=== PATIENT | female | born 1965 | race Caucasian/White ===

== ENCOUNTER 2016-11-18 19:29 | Emergency (ER) | payer MEDICAID, OTHER ==
[2016-11-18] MEDS ORDERED: ASPIRIN 325 MG TAB PO STA (22:06)
[2016-11-18] MEDS ORDERED: MAG HYDROX/AL HYDROX/SIMETH 30 ML, HYOSCYAMINE ELIXIR 10 ML, CIMETIDINE HCL 300 MG, LID... PO STA ×4 (22:06)
[2016-11-18] MEDS ORDERED: NITROGLYCERIN OINT 1 INCH/GM PACKET TOPICAL STA (22:07)
--- NOTE | 2016-11-18 22:12 | ED ---
General Adult HPI - General Chief complaint: Chest Pain Stated complaint: Chest Pain Time Seen by Provider: 11/18/16 21:56 Source: patient Mode of arrival: ambulatory Limitations: no limitations - History of Present Illness Initial comments: 50-year-old female presented for evaluation of a multitude of symptoms including chest pain, shortness of breath, bilateral lower extremity edema, and back pain for the last month. She states that they've progressively worsening over this time and she has been seen by her primary care physician who carli blood recently. She has a follow-up appointment on Friday. She states there are no exacerbating or alleviating factors. She states 78 months ago she had an echo and stress test at [facility] in [place] but is unsure of the results. She has a past medical history of hypertension and hyperlipidemia. - Related Data Home Medications Medication Instructions Recorded Confirmed Cholecalciferol [Vitamin D3] 1,000 unit PO DAILY 05/23/14 11/18/16 ARIPiprazole [Abilify] 30 mg PO DAILY 11/18/16 11/18/16 Aclidinium [place] [Tudorza 1 puff PO RT-BID 11/18/16 11/18/16 Pressair] Albuterol Inhaler [Ventolin Hfa 1 - 2 puff INHALATION RT-Q6H PRN 11/18/16 Inhaler] Atorvastatin [Lipitor] 40 mg PO HS 11/18/16 11/18/16 Fenofibrate [Lofibra] 160 mg PO HS 11/18/16 11/18/16 Gabapentin [Neurontin] 600 mg PO TID 11/18/16 11/18/16 LORazepam [Ativan] 0.5 mg PO TID 11/18/16 11/18/16 Lisinopril [Zestril] 10 mg PO DAILY 11/18/16 11/18/16 Mometasone/Formoterol [Dulera 200 2 puff INHALATION RT-BID 11/18/16 11/18/16 Mcg/5 Mcg Inhaler] oxyCODONE HCL/ACETAMINOPHEN 1 tab PO TID PRN 11/18/16 11/18/16 [Percocet 10-325 mg] Allergies Allergy/AdvReac Type Severity Reaction Status Date / Time ketorolac tromethamine AdvReac Unknown Verified 11/18/16 22:11 [From Toradol] tincture of benzoin Allergy Rash/Hives Uncoded 03/07/14 01:07 Review of Systems ROS Statement: Those systems with pertinent positive or pertinent negative responses have been documented in the HPI. ROS Other: All systems not noted in ROS Statement are negative. Constitutional: Denies: fever, chills Eyes: Denies: eye pain, eye discharge ENT: Denies: ear pain, throat pain Respiratory: Reports: dyspnea. Denies: cough Cardiovascular: Reports: chest pain. Denies: palpitations, dyspnea on exertion , orthopnea Endocrine: Denies: fatigue, polydipsia, polyuria Gastrointestinal: Denies: abdominal pain, nausea, vomiting Genitourinary: Denies: urgency, dysuria Musculoskeletal: Reports: back pain. Denies: arthralgia Skin: Denies: rash, lesions Neurological: Denies: headache, weakness Psychiatric: Denies: anxiety, depression Hematological/Lymphatic: Denies: easy bleeding, easy bruising Past Medical History Past Medical History: Hyperlipidemia, Hypertension Additional Past Medical History / Comment(s): back pain, degenerative disc disease, herniated disc. History of Any Multi-Drug Resistant Organisms: None Reported Past Surgical History: Section Past Anesthesia/Blood Transfusion Reactions: No Reported Reaction Past Psychological History: Anxiety Smoking Status: Current every day smoker Past Alcohol Use History: Occasional Past Drug Use History: None Reported Additional Drug Use History / Comment(s): Pt denies drug use but UDS was positive for THC. General Exam Limitations: no limitations General appearance: alert, in no apparent distress Head exam: Present: atraumatic, normocephalic, normal inspection Eye exam: Present: normal appearance, PERRL, EOMI. Absent: scleral icterus, conjunctival injection, periorbital swelling ENT exam: Present: normal exam, mucous membranes moist Neck exam: Present: normal inspection. Absent: tenderness, meningismus, lymphadenopathy Respiratory exam: Present: normal lung sounds bilaterally. Absent: respiratory distress, wheezes, rales, rhonchi, stridor Cardiovascular Exam: Present: regular rate, normal rhythm, normal heart sounds. Absent: systolic murmur, diastolic murmur, rubs, gallop, clicks GI/Abdominal exam: Present: soft, normal bowel sounds. Absent: distended, tenderness, guarding, rebound, rigid Rectal exam: Present: deferred Extremities exam: Present: full ROM, pedal edema Back exam: Present: normal inspection, full ROM Neurological exam: Present: alert, oriented X3, CN II-XII intact Psychiatric exam: Present: normal affect, normal mood Skin exam: Present: warm, dry, intact, normal color. Absent: rash Course Vital Signs 11/18/16 11/18/16 11/19/16 20:47 22:49 01:08 Temperature 97.6 F Pulse Rate 71 67 66 Respiratory 20 18 18 Rate Blood Pressure 138/74 142/70 141/78 O2 Sat by Pulse 98 96 97 Oximetry Medical Decision Making - Medical Decision Making 50 -year-old female presenting for evaluation of substernal chest pain , bilateral lower extremity edema, low back pain, and shortness of breath for the last month. She states all her symptoms started roughly the same time and progressively been worsening since that. She's been evaluated by her primary care physician as scheduled for a follow-up appointment on Friday. On physical examination she does have pitting edema to bilateral lower extremities and does state that she's having some sternal chest pressure at this time. There are no abnormalities noted otherwise. We'll obtain chest x-ray, EKG, labs , and provide Nitropaste and aspirin as well as a GI cocktail. Labs revealed no significant abnormalities. Pt reevaluated and found sleeping in bed comfortably. He was woken up informed of all lab results and that he would be discharged with instruction to follow-up with his primary care physician as well as being given a GI referral. He was further advised to get the prescriptions that he was given earlier filled and to take them as prescribed. He was advised to return to this facility if symptoms should worsen or persist. The patient acknowledged an understanding of all this information and agreed with this plan of care. - Lab Data Result diagrams: 11/18/16 22:48 11/18/16 22:48 Lab Results 11/18/16 11/18/16 11/18/16 Range/Units 22:48 22:48 22:48 WBC 8.1 (3.8-10.6) k/uL RBC 4.05 (3.80-5.40) m/uL Hgb 12.6 (11.4-16.0) gm/dL Hct 37.4 (34.0-46.0) % MCV 92.4 (80.0-100.0) fL MCH 31.1 (25.0-35.0) pg MCHC 33.6 (31.0-37.0) g/dL RDW 13.1 (11.5-15.5) % Plt Count 283 (150-450) k/uL Neutrophils % 49 % Lymphocytes % 35 % Monocytes % 5 % Eosinophils % 7 % Basophils % 1 % Neutrophils # 4.0 (1.3-7.7) k/uL Lymphocytes # 2.9 (1.0-4.8) k/uL Monocytes # 0.4 (0-1.0) k/uL Eosinophils # 0.6 (0-0.7) k/uL Basophils # 0.1 (0-0.2) k/uL Sodium 144 (137-145) mmol/L Potassium 3.8 (3.5-5.1) mmol/L Chloride 106 (98-107) mmol/L Carbon Dioxide 26 (22-30) mmol/L Anion Gap 12 mmol/L BUN 10 (7-17) mg/dL Creatinine 0.90 (0.52-1.04) mg/dL Est GFR (MDRD) Af Amer >60 (>60 ml/min/1.73 sqM) Est GFR (MDRD) Non-Af >60 (>60 ml/min/1.73 sqM) Glucose 104 H (74-99) mg/dL Calcium 9.6 (8.4-10.2) mg/dL Total Bilirubin 0.4 (0.2-1.3) mg/dL AST 28 (14-36) U/L ALT 37 (9-52) U/L Alkaline Phosphatase 61 (38-126) U/L Troponin I (0.000-0.034) ng/mL NT-Pro-B Natriuret Pep pg/mL Total Protein 7.0 (6.3-8.2) g/dL Albumin 4.3 (3.5-5.0) g/dL Lipase 116 (23-300) U/L Influenza Type A RNA Not Detected (Not Detectd) Influenza Type B (PCR) Not Detected (Not Detectd) 11/18/16 11/18/16 Range/Units 22:48 22:48 WBC (3.8-10.6) k/uL RBC (3.80-5.40) m/uL Hgb (11.4-16.0) gm/dL Hct (34.0-46.0) % MCV (80.0-100.0) fL MCH (25.0-35.0) pg MCHC (31.0-37.0) g/dL RDW (11.5-15.5) % Plt Count (150-450) k/uL Neutrophils % % Lymphocytes % % Monocytes % % Eosinophils % % Basophils % % Neutrophils # (1.3-7.7) k/uL Lymphocytes # (1.0-4.8) k/uL Monocytes # (0-1.0) k/uL Eosinophils # (0-0.7) k/uL Basophils # (0-0.2) k/uL Sodium (137-145) mmol/L Potassium (3.5-5.1) mmol/L Chloride (98-107) mmol/L Carbon Dioxide (22-30) mmol/L Anion Gap mmol/L BUN (7-17) mg/dL Creatinine (0.52-1.04) mg/dL Est GFR (MDRD) Af Amer (>60 ml/min/1.73 sqM) Est GFR (MDRD) Non-Af (>60 ml/min/1.73 sqM) Glucose (74-99) mg/dL Calcium (8.4-10.2) mg/dL Total Bilirubin (0.2-1.3) mg/dL AST (14-36) U/L ALT (9-52) U/L Alkaline Phosphatase (38-126) U/L Troponin I <0.012 (0.000-0.034) ng/mL NT-Pro-B Natriuret Pep 71 pg/mL Total Protein (6.3-8.2) g/dL Albumin (3.5-5.0) g/dL Lipase (23-300) U/L Influenza Type A RNA (Not Detectd) Influenza Type B (PCR) (Not Detectd) Disposition Clinical Impression: Abdominal pain Disposition: HOME SELF-CARE Condition: Stable Instructions: Diet for Stomach Ulcers and Gastritis (ED), Gastroesophageal Reflux Disease (ED) Referrals: Mike Jean MD [Primary Care Provider] - 1-2 days Csaandra Conde MD [STAFF PHYSICIAN] - 1-2 days Time of Disposition: 01:37
[2016-11-18 22:50] VITALS: RESP 18
[2016-11-18 23:06] LABS: Basophils # (A) 0.1 k/uL (0-0.2); Basophils % (A) 1 %; CH 31.4; CHCM 34.2; Eosinophils # (A) 0.6 k/uL (0-0.7); Eosinophils % (A) 7 %; HCT 37.4 % (34.0-46.0); HGB 12.6 gm/dL (11.4-16.0); Luc # (Auto) 0.28; Luc % (Auto) 3; Lymphocytes # (A) 2.9 k/uL (1.0-4.8); Lymphocytes % (A) 35 %; MCH 31.1 pg (25.0-35.0); MCHC 33.6 g/dL (31.0-37.0); MCV 92.4 fL (80.0-100.0); Mean Platelet Volume 7.5; Monocytes # (A) 0.4 k/uL (0-1.0); Monocytes % (A) 5 %; Neutrophils % (A) 49 %; RBC 4.05 m/uL (3.80-5.40); RDW 13.1 % (11.5-15.5); WBC 8.1 k/uL (3.8-10.6)
--- NOTE | 2016-11-18 23:20 | XR ---
Chest PA and lateral views INDICATION: Chest pain COMPARISON: CXR 03/07/14 FINDINGS: PA and lateral views of the chest are obtained. Heart size and pulmonary vascularity are normal. There is no consolidation, effusion, or pneumothorax. Regional skeleton is intact. IMPRESSION: No acute cardiopulmonary disease.
[2016-11-18 23:23] LABS: ALT 37 U/L (9-52); AST 28 U/L (14-36); Alkaline Phosphatase 61 U/L (38-126); Anion Gap 12 mmol/L; Blood Urea Nitrogen 10 mg/dL (7-17); Calcium 9.6 mg/dL (8.4-10.2); Carbon Dioxide 26 mmol/L (22-30); Chloride 106 mmol/L (98-107); Glucose 104 mg/dL (74-99); Non-African American GFR(MDRD) >60 (>60 ml/min/1.73 sqM); Potassium 3.8 mmol/L (3.5-5.1); Sodium 144 mmol/L (137-145); Total Bilirubin 0.4 mg/dL (0.2-1.3)
[2016-11-18] MEDS ORDERED: MORPHINE SULFATE 4 MG/ML SYRINGE IVP STA (23:39)
[2016-11-19] MEDS ORDERED: ONDANSETRON 4 MG/2 ML VIAL IVP STA (01:34)
[2016-11-19] MEDS ORDERED: FAMOTIDINE 20 MG/2 ML VIAL IV STA (01:34)
--- NOTE | 2016-11-19 02:13 | ED ---
Medical Decision Making - Lab Data Result diagrams: 11/18/16 22:48 11/18/16 22:48 Lab Results 11/18/16 11/18/16 11/18/16 Range/Units 22:48 22:48 22:48 WBC 8.1 (3.8-10.6) k/uL RBC 4.05 (3.80-5.40) m/uL Hgb 12.6 (11.4-16.0) gm/dL Hct 37.4 (34.0-46.0) % MCV 92.4 (80.0-100.0) fL MCH 31.1 (25.0-35.0) pg MCHC 33.6 (31.0-37.0) g/dL RDW 13.1 (11.5-15.5) % Plt Count 283 (150-450) k/uL Neutrophils % 49 % Lymphocytes % 35 % Monocytes % 5 % Eosinophils % 7 % Basophils % 1 % Neutrophils # 4.0 (1.3-7.7) k/uL Lymphocytes # 2.9 (1.0-4.8) k/uL Monocytes # 0.4 (0-1.0) k/uL Eosinophils # 0.6 (0-0.7) k/uL Basophils # 0.1 (0-0.2) k/uL Sodium 144 (137-145) mmol/L Potassium 3.8 (3.5-5.1) mmol/L Chloride 106 (98-107) mmol/L Carbon Dioxide 26 (22-30) mmol/L Anion Gap 12 mmol/L BUN 10 (7-17) mg/dL Creatinine 0.90 (0.52-1.04) mg/dL Est GFR (MDRD) Af Amer >60 (>60 ml/min/1.73 sqM) Est GFR (MDRD) Non-Af >60 (>60 ml/min/1.73 sqM) Glucose 104 H (74-99) mg/dL Calcium 9.6 (8.4-10.2) mg/dL Total Bilirubin 0.4 (0.2-1.3) mg/dL AST 28 (14-36) U/L ALT 37 (9-52) U/L Alkaline Phosphatase 61 (38-126) U/L Troponin I (0.000-0.034) ng/mL NT-Pro-B Natriuret Pep pg/mL Total Protein 7.0 (6.3-8.2) g/dL Albumin 4.3 (3.5-5.0) g/dL Lipase 116 (23-300) U/L Influenza Type A RNA Not Detected (Not Detectd) Influenza Type B (PCR) Not Detected (Not Detectd) 11/18/16 11/18/16 11/19/16 Range/Units 22:48 22:48 01:10 WBC (3.8-10.6) k/uL RBC (3.80-5.40) m/uL Hgb (11.4-16.0) gm/dL Hct (34.0-46.0) % MCV (80.0-100.0) fL MCH (25.0-35.0) pg MCHC (31.0-37.0) g/dL RDW (11.5-15.5) % Plt Count (150-450) k/uL Neutrophils % % Lymphocytes % % Monocytes % % Eosinophils % % Basophils % % Neutrophils # (1.3-7.7) k/uL Lymphocytes # (1.0-4.8) k/uL Monocytes # (0-1.0) k/uL Eosinophils # (0-0.7) k/uL Basophils # (0-0.2) k/uL Sodium (137-145) mmol/L Potassium (3.5-5.1) mmol/L Chloride (98-107) mmol/L Carbon Dioxide (22-30) mmol/L Anion Gap mmol/L BUN (7-17) mg/dL Creatinine (0.52-1.04) mg/dL Est GFR (MDRD) Af Amer (>60 ml/min/1.73 sqM) Est GFR (MDRD) Non-Af (>60 ml/min/1.73 sqM) Glucose (74-99) mg/dL Calcium (8.4-10.2) mg/dL Total Bilirubin (0.2-1.3) mg/dL AST (14-36) U/L ALT (9-52) U/L Alkaline Phosphatase (38-126) U/L Troponin I <0.012 <0.012 (0.000-0.034) ng/mL NT-Pro-B Natriuret Pep 71 pg/mL Total Protein (6.3-8.2) g/dL Albumin (3.5-5.0) g/dL Lipase (23-300) U/L Influenza Type A RNA (Not Detectd) Influenza Type B (PCR) (Not Detectd) Disposition Clinical Impression: Chest pain, Bilateral lower extremity edema Disposition: HOME SELF-CARE Condition: Stable Instructions: Chest Pain (ED), Leg Edema (ED) Referrals: Mike Jean MD [Primary Care Provider] - 1-2 days Time of Disposition: 02:12
[2016-11-19 02:23] VITALS: BP 131/66; PULSE 60; TEMP 98
== END 2016-11-19 02:22 | disposition home or self-care (01) ==
LOC: EC 19:29
DX: R07.9 Chest pain, unspecified (principal); R60.0 Localized edema; I10 Essential (primary) hypertension; E78.5 Hyperlipidemia, unspecified; M54.5 Low back pain; Z79.51 Long term (current) use of inhaled steroids; Z79.899 Other long term (current) drug therapy; Z88.8 Allergy status to other drugs, medicaments and biological substances; F41.9 Anxiety disorder, unspecified; F17.200 Nicotine dependence, unspecified, uncomplicated
CPT/HCPCS: 36415 ×2; 93005; 83880; 80053; 83690; 84484 ×2; 85025; 87502; 71020; 99285; 96374; J2270

== ENCOUNTER 2016-11-24 18:06 | Observation (INO) | payer OTHER ==
[2016-11-24] MEDS ORDERED: ASPIRIN 81 MG CHEW PO STA (18:39)
[2016-11-24] MEDS ORDERED: NITROGLYCERIN SL TABS 0.4 MG TAB SUBLINGUAL STA (18:39)
[2016-11-24] MEDS ORDERED: IPRATROPIUM-ALBUTEROL 3 ML NEB INHALATION STA (18:40)
--- NOTE | 2016-11-24 18:42 | ED ---
Chest Pain HPI - General Chief Complaint: Chest Pain Stated Complaint: CHEST PAIN AND SWELLING IN LEGS, SOB Time Seen by Provider: 11/24/16 18:26 Source: patient, RN notes reviewed Mode of arrival: wheelchair Limitations: no limitations - History of Present Illness Initial Comments: This is a 42-year-old female with history of COPD who still smokes about 4 cigarettes a day down from a pack a day and states she's had about one month of episodes of chest pain and shortness of breath and lower extremity swelling. Has a cough with some clear phlegm also she states is getting somewhat worse so on been going on about a month ever had this before. Chest pain is 7/10 severity dull midsternal and achy. No fevers chills sweats no other complaints at this time. She does have a family history of congestive heart failure but no personal history MD Complaint: chest pain, other - Related Data Home Medications Medication Instructions Recorded Confirmed Cholecalciferol [Vitamin D3] 1,000 unit PO DAILY 05/23/14 11/24/16 ARIPiprazole [Abilify] 30 mg PO DAILY 11/18/16 11/24/16 Aclidinium [place] [Tudorza 1 puff PO RT-BID 11/18/16 11/24/16 Pressair] Albuterol Inhaler [Ventolin Hfa 1 - 2 puff INHALATION RT-Q6H PRN 11/18/16 Inhaler] Atorvastatin [Lipitor] 40 mg PO HS 11/18/16 11/24/16 Fenofibrate [Lofibra] 160 mg PO HS 11/18/16 11/24/16 Gabapentin [Neurontin] 600 mg PO TID 11/18/16 11/24/16 LORazepam [Ativan] 0.5 mg PO TID 11/18/16 11/24/16 Lisinopril [Zestril] 10 mg PO DAILY 11/18/16 11/24/16 Mometasone/Formoterol [Dulera 200 2 puff INHALATION RT-BID 11/18/16 11/24/16 Mcg/5 Mcg Inhaler] oxyCODONE HCL/ACETAMINOPHEN 1 tab PO TID PRN 11/18/16 11/24/16 [Percocet 10-325 mg] Allergies Allergy/AdvReac Type Severity Reaction Status Date / Time ketorolac tromethamine AdvReac Unknown Verified 11/24/16 18:52 [From Toradol] tincture of benzoin Allergy Rash/Hives Uncoded 11/24/16 18:18 Review of Systems ROS Statement: Those systems with pertinent positive or pertinent negative responses have been documented in the HPI. ROS Other: All systems not noted in ROS Statement are negative. EKG Findings - EKG Results: EKG: interpreted by ERMD, sinus rhythm (Sinus rhythm rate of 85. Interval 150 QRS duration 86 QT/QTC of 370/[address]-T wave changes.) Past Medical History Past Medical History: Hyperlipidemia, Hypertension Additional Past Medical History / Comment(s): back pain, degenerative disc disease, herniated disc. History of Any Multi-Drug Resistant Organisms: None Reported Past Surgical History: Section Past Anesthesia/Blood Transfusion Reactions: No Reported Reaction Past Psychological History: Anxiety Smoking Status: Current every day smoker Past Alcohol Use History: Occasional Past Drug Use History: None Reported Additional Drug Use History / Comment(s): Pt denies drug use but UDS was positive for THC. General Exam - General Exam Comments Initial Comments: This is a well-developed well-nourished awake alert oriented history female Limitations: no limitations General appearance: alert, in no apparent distress Head exam: Present: atraumatic, normocephalic, normal inspection Eye exam: Present: normal appearance, PERRL, EOMI. Absent: scleral icterus, conjunctival injection, periorbital swelling ENT exam: Present: normal exam, mucous membranes moist Neck exam: Present: normal inspection. Absent: tenderness, meningismus, lymphadenopathy Respiratory exam: Present: decreased breath sounds. Absent: respiratory distress, wheezes, rales, rhonchi, stridor Cardiovascular Exam: Present: regular rate, normal rhythm, normal heart sounds. Absent: systolic murmur, diastolic murmur, rubs, gallop, clicks GI/Abdominal exam: Present: soft, normal bowel sounds. Absent: distended, tenderness, guarding, rebound, rigid Extremities exam: Present: normal inspection, full ROM, normal capillary refill. Absent: tenderness, pedal edema, joint swelling, calf tenderness Back exam: Present: normal inspection Neurological exam: Present: alert, oriented X3, CN II-XII intact Psychiatric exam: Present: normal affect, normal mood Skin exam: Present: warm, dry, intact, normal color. Absent: rash Course Vital Signs 11/24/16 11/24/16 11/24/16 18:18 18:45 18:56 Temperature 98.5 F Pulse Rate 95 78 Pulse Rate [ Right Radial] Respiratory 17 Rate Blood Pressure 123/79 128/80 O2 Sat by Pulse 97 Oximetry 11/24/16 11/24/16 11/24/16 19:00 19:04 20:07 Temperature Pulse Rate 101 H 90 Pulse Rate [ 89 Right Radial] Respiratory 18 Rate Blood Pressure 121/72 128/65 O2 Sat by Pulse 96 Oximetry Chest Pain MDM - MDM I did review the x-rays and reports no acute findings. Patient did get some relief from the medication was rendered. Her laboratory thus far is negative. I did discuss the findings with her she'll be admitted for evaluation by cardiology. Disposition Clinical Impression: Chest pain, Unstable angina pectoris Disposition: ADMITTED IP TO THIS HOSP Condition: Stable
[2016-11-24 18:50] LABS: Basophils # (A) 0.1 k/uL (0-0.2); Basophils % (A) 1 %; CH 31.6; CHCM 33.8; Eosinophils # (A) 0.6 k/uL (0-0.7); Eosinophils % (A) 8 %; HCT 42.3 % (34.0-46.0); HDW 2.58; Luc # (Auto) 0.24; Luc % (Auto) 3; Lymphocytes # (A) 2.5 k/uL (1.0-4.8); Lymphocytes % (A) 33 %; MCH 31.1 pg (25.0-35.0); MCHC 33.2 g/dL (31.0-37.0); MCV 93.9 fL (80.0-100.0); Mean Platelet Volume 7.2; Monocytes # (A) 0.4 k/uL (0-1.0); Monocytes % (A) 5 %; Neutrophils # (A) 3.7 k/uL (1.3-7.7); Neutrophils % (A) 50 %; RDW 13.2 % (11.5-15.5); WBC 7.4 k/uL (3.8-10.6); WBC (Perox) 7.45
[2016-11-24 18:58] LABS: ALT 37 U/L (9-52); AST 36 U/L (14-36); Alkaline Phosphatase 67 U/L (38-126); Anion Gap 13 mmol/L; Blood Urea Nitrogen 9 mg/dL (7-17); Carbon Dioxide 24 mmol/L (22-30); Chloride 106 mmol/L (98-107); Glucose 95 mg/dL (74-99); Magnesium 1.8 mg/dL (1.6-2.3); Non-African American GFR(MDRD) >60 (>60 ml/min/1.73 sqM); Sodium 143 mmol/L (137-145); Total Bilirubin 0.6 mg/dL (0.2-1.3); Total Protein 7.9 g/dL (6.3-8.2)
[2016-11-24 19:05] LABS: Potassium 4.6 mmol/L (3.5-5.1)
[2016-11-24 19:06] LABS: Partial Thromboplastin Time 22.1 sec (22.0-30.0); Prothrombin Time 10.2 sec (9.0-12.0)
[2016-11-24 19:16] LABS: Creatine Kinase 79 U/L (30-135)
[2016-11-24 19:28] LABS: Creatine Kinase MB 0.9 ng/mL (0.0-2.4); Troponin I <0.012 ng/mL (0.000-0.034)
--- NOTE | 2016-11-24 19:33 | XR ---
EXAMINATION TYPE: XR chest 2V DATE OF EXAM: 11/24/2016 7:12 PM COMPARISON: 11/18/2016 HISTORY: Intermittent chest pain TECHNIQUE: Frontal and lateral views of the chest are obtained. FINDINGS: Heart and mediastinum are normal. Lungs are clear. Diaphragm is normal. Bony thorax is int act. There are chest leads. IMPRESSION: Normal chest. No change.
[2016-11-24] MEDS ORDERED: HEPARIN SODIUM,PORCINE 5,000 UNIT/ML 1 ML VIAL IV ONE (20:32)
--- NOTE | 2016-11-24 20:36 | ED ---
Medical Decision Making - Lab Data Result diagrams: 11/24/16 18:23 11/24/16 18:23 Lab Results 11/24/16 11/24/16 11/24/16 Range/Units 18:23 18:23 18:23 WBC 7.4 (3.8-10.6) k/uL RBC 4.50 (3.80-5.40) m/uL Hgb 14.0 (11.4-16.0) gm/dL Hct 42.3 (34.0-46.0) % MCV 93.9 (80.0-100.0) fL MCH 31.1 (25.0-35.0) pg MCHC 33.2 (31.0-37.0) g/dL RDW 13.2 (11.5-15.5) % Plt Count 341 (150-450) k/uL Neutrophils % 50 % Lymphocytes % 33 % Monocytes % 5 % Eosinophils % 8 % Basophils % 1 % Neutrophils # 3.7 (1.3-7.7) k/uL Lymphocytes # 2.5 (1.0-4.8) k/uL Monocytes # 0.4 (0-1.0) k/uL Eosinophils # 0.6 (0-0.7) k/uL Basophils # 0.1 (0-0.2) k/uL PT (9.0-12.0) sec INR (<1.1) APTT (22.0-30.0) sec D-Dimer (<0.60) mg/L FEU Sodium 143 (137-145) mmol/L Potassium 4.6 (3.5-5.1) mmol/L Chloride 106 (98-107) mmol/L Carbon Dioxide 24 (22-30) mmol/L Anion Gap 13 mmol/L BUN 9 (7-17) mg/dL Creatinine 0.81 (0.52-1.04) mg/dL Est GFR (MDRD) Af Amer >60 (>60 ml/min/1.73 sqM) Est GFR (MDRD) Non-Af >60 (>60 ml/min/1.73 sqM) Glucose 95 (74-99) mg/dL Calcium 10.0 (8.4-10.2) mg/dL Magnesium 1.8 (1.6-2.3) mg/dL Total Bilirubin 0.6 (0.2-1.3) mg/dL AST 36 (14-36) U/L ALT 37 (9-52) U/L Alkaline Phosphatase 67 (38-126) U/L Total Creatine Kinase 79 (30-135) U/L CK-MB (CK-2) 0.9 (0.0-2.4) ng/mL CK-MB (CK-2) Rel Index 1.1 Troponin I <0.012 (0.000-0.034) ng/mL NT-Pro-B Natriuret Pep pg/mL Total Protein 7.9 (6.3-8.2) g/dL Albumin 4.7 (3.5-5.0) g/dL 11/24/16 11/24/16 Range/Units 18:23 18:23 WBC (3.8-10.6) k/uL RBC (3.80-5.40) m/uL Hgb (11.4-16.0) gm/dL Hct (34.0-46.0) % MCV (80.0-100.0) fL MCH (25.0-35.0) pg MCHC (31.0-37.0) g/dL RDW (11.5-15.5) % Plt Count (150-450) k/uL Neutrophils % % Lymphocytes % % Monocytes % % Eosinophils % % Basophils % % Neutrophils # (1.3-7.7) k/uL Lymphocytes # (1.0-4.8) k/uL Monocytes # (0-1.0) k/uL Eosinophils # (0-0.7) k/uL Basophils # (0-0.2) k/uL PT 10.2 (9.0-12.0) sec INR 1.0 (<1.1) APTT 22.1 (22.0-30.0) sec D-Dimer 0.28 (<0.60) mg/L FEU Sodium (137-145) mmol/L Potassium (3.5-5.1) mmol/L Chloride (98-107) mmol/L Carbon Dioxide (22-30) mmol/L Anion Gap mmol/L BUN (7-17) mg/dL Creatinine (0.52-1.04) mg/dL Est GFR (MDRD) Af Amer (>60 ml/min/1.73 sqM) Est GFR (MDRD) Non-Af (>60 ml/min/1.73 sqM) Glucose (74-99) mg/dL Calcium (8.4-10.2) mg/dL Magnesium (1.6-2.3) mg/dL Total Bilirubin (0.2-1.3) mg/dL AST (14-36) U/L ALT (9-52) U/L Alkaline Phosphatase (38-126) U/L Total Creatine Kinase (30-135) U/L CK-MB (CK-2) (0.0-2.4) ng/mL CK-MB (CK-2) Rel Index Troponin I (0.000-0.034) ng/mL NT-Pro-B Natriuret Pep 29 pg/mL Total Protein (6.3-8.2) g/dL Albumin (3.5-5.0) g/dL Disposition Clinical Impression: Chest pain, Unstable angina pectoris, Bronchospasm, acute Disposition: ADMITTED IP TO THIS HOSP Condition: Stable Referrals: Mike Jean MD [Primary Care Provider] - 1-2 days
[2016-11-24] MEDS ORDERED: HEPARIN SODIUM,PORCINE/D5W PMX 25,000 UNIT in DEXTROSE/WATER 1 500ML.BAG IV SCH (20:45)
[2016-11-24] MEDS ORDERED: SODIUM CHLORIDE 0.9% 1,000 ML IV SCH (20:45)
[2016-11-24] MEDS ORDERED: ATORVASTATIN 40 MG TAB PO SCH (21:00)
[2016-11-24] MEDS ORDERED: FENOFIBRATE 160 MG TAB PO SCH (21:00)
[2016-11-24] MEDS: LORazepam 0.5 MG TAB PO SCH (22:08)
[2016-11-24] MEDS: oxyCODONE-APAP 10-325MG 1 EACH TAB PO PRN (22:08)
[2016-11-24] MEDS: GABAPENTIN 300 MG CAP PO SCH (22:08)
[2016-11-24] MEDS: NITROGLYCERIN OINT 1 INCH/GM PACKET TOPICAL SCH (22:08)
[2016-11-24] MEDS: NICOTINE 21MG/24HR PATCH TRANSDERM SCH (23:05)
[2016-11-24] MEDS ORDERED: HEPARIN SODIUM,PORCINE 5,000 UNIT/ML 1 ML VIAL IV PRN (23:15)
[2016-11-24] MEDS: IPRATROPIUM-ALBUTEROL 3 ML NEB INHALATION SCH (23:31)
[2016-11-25 00:39] LABS: Creatine Kinase 53 U/L (30-135)
[2016-11-25 00:53] LABS: Creatine Kinase MB 0.6 ng/mL (0.0-2.4); Troponin I <0.012 ng/mL (0.000-0.034)
[2016-11-25] MEDS: IPRATROPIUM-ALBUTEROL 3 ML NEB INHALATION SCH ×4 (02:22→15:18)
[2016-11-25] MEDS: NITROGLYCERIN OINT 1 INCH/GM PACKET TOPICAL SCH (05:44)
[2016-11-25] MEDS: oxyCODONE-APAP 10-325MG 1 EACH TAB PO PRN ×4 (07:42→18:07)
[2016-11-25 07:52] LABS: Cholesterol 117 mg/dL (<200); HDL Cholesterol 34 mg/dL (40-60); Triglycerides 106 mg/dL (<150)
[2016-11-25] MEDS ORDERED: SYMBICORT 160-4.5 MCG INHALER INHALATION SCH (08:00)
[2016-11-25] MEDS ORDERED: DOBUTamine DRIP for NUC MED 500 MG in DEXTROSE/WATER 1 250ML.BAG IV ONE (08:03)
[2016-11-25 08:20] LABS: Creatine Kinase 46 U/L (30-135)
[2016-11-25 08:31] LABS: Creatine Kinase MB 0.6 ng/mL (0.0-2.4); Troponin I <0.012 ng/mL (0.000-0.034)
[2016-11-25] MEDS: GABAPENTIN 300 MG CAP PO SCH ×2 (08:47→15:32)
[2016-11-25] MEDS: LORazepam 0.5 MG TAB PO SCH ×2 (08:47→15:32)
[2016-11-25] MEDS ORDERED: CHOLECALCIFEROL 1,000 UNIT TAB PO SCH (09:00)
[2016-11-25] MEDS ORDERED: ARIPiprazole 15 MG TAB PO SCH (09:00)
[2016-11-25] MEDS ORDERED: ASPIRIN 325 MG TAB PO SCH (09:00)
[2016-11-25] MEDS ORDERED: LISINOPRIL 10 MG TAB PO SCH (09:00)
[2016-11-25] MEDS: NICOTINE 21MG/24HR PATCH TRANSDERM SCH (11:40)
--- NOTE | 2016-11-25 13:18 | ECHOF ---
Referral Reason:cp MEASUREMENTS -------- HEIGHT: 170.2 cm WEIGHT: 100.7 kg BP: IVSd: 1.5 cm (0.6 - 1.1) LVIDd: 4.3 cm (3.9 - 5.3) LVPWd: 1.4 cm (0.6 - 1.1) IVSs: 2.0 cm LVIDs: 2.7 cm LVPWs: 1.9 cm Ao Diam: 3.0 cm (2.0 - 3.7) AV Cusp: 2.3 cm (1.5 - 2.6) LA Diam: 3.4 cm (2.7 - 3.8) MV EXCURSION: 18.048 mm (> 18.000) MV EF SLOPE: 145 mm/s (70 - 150) EPSS: 0.3 cm MV E Fernando: 0.68 m/s MV DecT: 158 ms MV A Fernando: 0.76 m/s MV E/A Ratio: 0.90 RAP: 5.00 mmHg RVSP: 9.20 mmHg FINDINGS -------- Sinus rhythm. This was a technically good study. There is moderate concentric left ventricular hypertrophy. Overall left ventricular systolic function is normal with, an EF between 55 - 60 %. The right ventricle is normal in size and function. The left atrium is normal in size. The right atrium is normal in size. The aortic valve is trileaflet, and appears structurally normal. No aortic stenosis or regurgitation. The mitral valve leaflets are mildly thickened. There is trace mitral regurgitation. Trace tricuspid regurgitation present. The right ventricular systolic pressure, as measured by Doppler, is 9.20mmHg. Pulmonic valve appears structurally normal. The aortic root size is normal. The pericardium is normal. CONCLUSIONS -------- 1. Sinus rhythm. 2. There is trace mitral regurgitation. 3. Trace tricuspid regurgitation present. 4. The right ventricular systolic pressure, as measured by Doppler, is 9.20mmHg. 5. Pulmonic valve appears structurally normal. 6. The aortic root size is normal. 7. The pericardium is normal. 8. This was a technically good study. 9. There is moderate concentric left ventricular hypertrophy. 10. Overall left ventricular systolic function is normal with, an EF between 55 - 60 %. 11. The right ventricle is normal in size and function. 12. The left atrium is normal in size. 13. The right atrium is normal in size. 14. The aortic valve is trileaflet, and appears structurally normal. No aortic stenosis or regurgitation. 15. The mitral valve leaflets are mildly thickened. PATIENT SUPPORT PARTNER: Ivette Agrawal RDCS
--- NOTE | 2016-11-25 14:30 | ECHOS ---
DATE OF SERVICE: 11/25/2016 AGE: 50Y SEX: F HT: 67 WT: 222 lbs. Protocol Harvinder: Others: Dobutamine Stress Echo Stage: 3 Dur. of Exercise: 8:00 *Heart Rate Blood Pressure *Rest: 77 Rest: 110/61 * *Max. Achieved: 150 Maximum BP: 198/80 85% PMHR: 143 100% PMHR: 172 *METS: - INDICATIONS: Chest pain. MEDICATIONS: - Dobutamine echocardiographic study was performed. Peak heart rate of 150 was achieved. Maximum blood pressure of 198/80 mmHg was noted. Resting EKG shows normal sinus rhythm with normal OK interval and QRS duration and normal ST-T waves. No ST segment depression suggestive of ischemia is noted. The baseline echocardiographic images reveal normal left ventricular chamber size with normal left ventricular systolic function. At the peak dose of dobutamine infusion, normal increase in the wall thickness and contractility is noted. This dobutamine stress echocardiographic study is negative for stress-induced ischemia. EKG portion of the stress test is not suggestive of ischemia.
--- NOTE | 2016-11-25 14:55 | CONS ---
DATE OF CONSULTATION: Mrs. Meredith is a 50-year-old female with a history of hypertension, hyperlipidemia, chronic tobacco use, and chronic back pain who presented with chest and leg discomfort. Her discomfort started on and off for the last month, worse yesterday. Some of the discomfort is worse when she takes a deep breath and she had the leg pain as well. She has chronic obstructive lung disease and chronic dyspnea on exertion and her activity level has been limited because of her back pain. She has occasional peripheral edema. No dizziness. No palpitation. No syncope. No PND or orthopnea. She has no prior documented history of obstructive coronary artery disease. She has underwent the stress test in 2014, at that time there was no evidence of inducible ischemia. Her coronary risk factors are remarkable for hypertension, chronic tobacco use, hyperlipidemia, and a strong family history of premature coronary disease. Her medications include Dulera, Zestril 10 mg daily, Ativan, Neurontin, fenofibrate 160 mg daily, Lipitor 40 mg daily, albuterol, Tudorza and Abilify. REVIEW OF SYSTEMS: RESPIRATORY SYSTEM: She has the chronic dyspnea on exertion, chronic obstructive lung disease. Occasional cough. GI SYSTEM: No recent GI bleeding. No peptic ulcer disease. SYSTEM: No dysuria or hematuria. NERVOUS SYSTEM: No history of stroke or seizure. PHYSICAL EXAMINATION: She is a 50-year-old female, alert, oriented, in no apparent distress. Blood pressure 111/50 with a heart rate in the 80s. HEAD: Normocephalic. EYES: Sclerae nonicteric. NECK: Good upstroke. No bruits. No jugular venous distention. Lungs with scattered wheezes bilaterally and decreased air exchange. HEART: Regular rate and rhythm. S1, S2, no S3, no rub. ABDOMEN: Soft, nontender, positive bowel sounds. No organomegaly. EXTREMITIES: Trace to 1+ edema. Intact distal pulses. Chest wall with reproducible pain. Lab data revealed hemoglobin of 14, d-dimer of 0.28. BUN and creatinine 9 and 0.81. Troponin less than 0.012. Cholesterol 117, LDL of 62, triglyceride of 106, EKG revealed a sinus mechanism, normal axis and intervals, normal echocardiogram. IMPRESSION: 1. Chest and leg discomfort, has atypical feature for ischemic heart disease, probably related to musculoskeletal etiology related to her back pain. 2. Chronic tobacco use. 3. Hypertension. 4. Hyperlipidemia. 5. Family history of premature coronary disease. RECOMMENDATION: I have recommended to stop her IV heparin, proceed with dobutamine stress echocardiogram and transthoracic echo and depending on the results of the testing, further recommendation will be made. I have encouraged her to stop smoking. Thank you for this consult. Will follow with you.
[2016-11-25 16:06] VITALS: BP 136/73; PULSE 93; RESP 18; TEMP 97.5
--- NOTE | 2016-11-26 07:04 | HP ---
DATE OF ADMISSION: HISTORY AND PHYSICAL AND DISCHARGE SUMMARY PRESENTING COMPLAINT: The patient complained of some chest pressure. HISTORY OF PRESENTING ILLNESS: This is a 50-year-old female with history of hypertension ongoing tobacco use, dyslipidemia, comes in the hospital with complaints of chest discomfort and progressive worsening of lower extremity edema. Patient states that she has been having intermittent cough for the last 3 days, not associated with any yellowish sputum production. Thereafter noted pressure in her mid sternal region, nonradiating in nature. The patient also stated that it was reproducible. Patient denies having any PND, orthopnea, associated difficulty in breathing. Patient apparently has had lower extremity edema for the last 3 to [address] Jean. Patient was evaluated and a venous study was ordered at that time. In the emergency room, EKG did not reveal any ST-T wave changes. Cardiac enzymes x3 were negative. Patient's pain was resolved by the time of my evaluation. Denies having any associated breathing trouble or abdominal pain or urinary urgency or frequency at the time of my evaluation. REVIEW OF SYSTEMS: A 14-point review of systems was done; none pertinent other than what was described above. Medications include: 1. Dulera. 2. Lisinopril. 3. Ativan. 4. Neurontin. 5. Fenofibrate. 6. Lipitor. 7. Albuterol. 8. Tudorza. 9. Abilify. Doses were reviewed and appropriately reconciled on admission and discharge. SURGICAL HISTORY: None reported. FAMILY HISTORY: No premature heart disease reported. SOCIAL HISTORY: Currently smokes cigarettes daily about 1/2 pack. Denies significant alcohol use or illicit drug use. Physical exam includes blood pressure 111/50, heart rate 82, respiratory rate is around 14, saturating greater than 90%. GENERAL APPEARANCE: Alert, oriented x3 in no distress. LUNGS: Good air movement, clear to auscultation. No rhonchi or wheezing appreciated. CHEST: Reproducible pain noted appreciated on sternal region. HEART: S1, S2 heard. Regular rate and rhythm. No murmurs appreciated. ABDOMEN: Soft, nontender, no organomegaly. Bowel sounds are intact. THE LOWER EXTREMITIES: There is 1+ pitting edema noted. NEURO: No focal motor or sensory deficits noted. Cranial nerves 2 through 12 grossly intact. Laboratory data includes white count 7.4, hemoglobin 14, hematocrit 42.3, platelets of 341. D-dimer is 0.28. Sodium 143, potassium 4.6, chloride 106, bicarb 24, BUN 9, creatinine of 0.80. ASSESSMENT AND PLAN: 1. Atypical chest pain, likely musculoskeletal in nature. 2. Ongoing tobacco use. 3. Dyslipidemia. 4. History of hypertension. 5. Likely has underlying chronic obstructive pulmonary disease. 6. Lower extremity edema. 7. Patient's renal function appears stable. 8. ( ) muscle function appears stable. 9. BNP was 29. PLAN: Stress test was negative. Chest was ruled out. Patient's ejection fraction was within normal limits. Lower extremity edema is likely secondary to venous insufficiency. Patient's albumin systemic was 4.7. Renal function was stable. Did order a UA and a TSH. I did discuss this with the patient and patient is to follow up with Dr. Jean. If TSH is within normal limits, patient would benefit from obtaining compression stockings. Patient is discharged home in a stable condition.
== END 2016-11-25 18:16 | disposition home or self-care (01) ==
LOC: EC 18:06 → 3OBS 20:32
PROVIDERS: ADMIT Internal Medicine; ATTEND Internal Medicine
DX: R07.89 Other chest pain (principal); R60.0 Localized edema; R06.02 Shortness of breath; R05 Cough; F17.210 Nicotine dependence, cigarettes, uncomplicated; J44.9 Chronic obstructive pulmonary disease, unspecified; Z82.49 Family history of ischemic heart disease and other diseases of the circulatory system; Z79.899 Other long term (current) drug therapy; Z88.8 Allergy status to other drugs, medicaments and biological substances; Z91.048 Other nonmedicinal substance allergy status; E78.5 Hyperlipidemia, unspecified; I10 Essential (primary) hypertension; M54.9 Dorsalgia, unspecified; F41.9 Anxiety disorder, unspecified; J98.01 Acute bronchospasm; G89.29 Other chronic pain
CPT/HCPCS: 96376 ×2; 99285 ×2; 36415; 94640 ×3; 93005; 93017; 93306; 93350; 85379; 83880; 80061; 80053; 82550 ×2; 82553 ×2; 83735; 84484 ×2; 85025; 85610; 85730 ×2; 71020; G0378 ×2; S4990 ×2; J1250; J1644 ×2; 96365; 96366

== ENCOUNTER 2019-07-31 14:16 | Observation (INO) | payer OTHER ==
[2019-07-31 14:23] VITALS: RESP 18
[2019-07-31] MEDS ORDERED: ASPIRIN 81 MG PO STA (14:24)
[2019-07-31] MEDS ORDERED: NITROGLYCERIN SL TABS 0.4 MG TAB SUBLINGUAL STA (14:24)
[2019-07-31 15:04] LABS: Basophils % (A) 1 %; Eosinophils # (A) 0.2 k/uL (0-0.7); Eosinophils % (A) 3 %; HGB 14.2 gm/dL (11.4-16.0); Lymphocytes # (A) 2.7 k/uL (1.0-4.8); Lymphocytes % (A) 32 %; MCH 30.8 pg (25.0-35.0); MCHC 33.9 g/dL (31.0-37.0); MCV 90.9 fL (80.0-100.0); Mean Platelet Volume 7.9; Monocytes # (A) 0.4 k/uL (0-1.0); Monocytes % (A) 5 %; Neutrophils # (A) 4.9 k/uL (1.3-7.7); Neutrophils % (A) 59 %; Platelet Count 350 k/uL (150-450); RBC 4.62 m/uL (3.80-5.40); RDW 12.4 % (11.5-15.5); WBC 8.3 k/uL (3.8-10.6)
[2019-07-31 15:14] LABS: ALT 28 U/L (9-52); AST 24 U/L (14-36); African American GFR (CKD) >90 (>60 ml/min/1.73 sqM); Albumin 4.6 g/dL (3.5-5.0); Alkaline Phosphatase 73 U/L (38-126); Anion Gap 9 mmol/L; Blood Urea Nitrogen 8 mg/dL (7-17); Calcium 9.7 mg/dL (8.4-10.2); Carbon Dioxide 26 mmol/L (22-30); Chloride 107 mmol/L (98-107); Glucose 113 mg/dL (74-99); Magnesium 1.9 mg/dL (1.6-2.3); Non-African American GFR(CKD) 90 (>60 ml/min/1.73 sqM); Sodium 142 mmol/L (137-145); Total Bilirubin 0.6 mg/dL (0.2-1.3); Total Protein 7.7 g/dL (6.3-8.2)
[2019-07-31 15:18] LABS: Potassium 4.3 mmol/L (3.5-5.1)
[2019-07-31 15:32] LABS: D-Dimer 0.2 mg/L FEU (<0.60); INR 0.9 (<1.2); Partial Thromboplastin Time 23.3 sec (22.0-30.0); Prothrombin Time 9.9 sec (9.0-12.0)
--- NOTE | 2019-07-31 15:48 | ED ---
Chest Pain HPI <Al Cohen - Last Filed: 07/31/19 18:17> - General Source: patient Mode of arrival: ambulatory Limitations: no limitations <Rola Villatoro - Last Filed: 07/31/19 18:41> - General Chief Complaint: Chest Pain Stated Complaint: Chest pain Time Seen by Provider: 07/31/19 14:24 - History of Present Illness Initial Comments: 53-year-old female presenting today for chief complaint of chest pain patient states the past 2-3 days she has had chest pain on and off she states is now more persistent and she states she has pain between the shoulder blades patient denies his being a ripping tearing pain she states is more of an ache. Patient denies any hemoptysis or leg swelling known cardiac history patient states she is an everyday smoker. Patient states she has shortness of breath. Patient describes the chest pain as an aching pain just under the left breast moving toward the center of chest. Patient admits to nausea, denies vomiting. States she has had some loose stools. Patient denies fevers. Cough URI symptoms. Patient denies cancer history, recent travel or surgery. Patient has no additional complaints. Upon arrival patient appears well, nontoxic. No diaphoresis, distress or levign sign. (Rola Villatoro) - Related Data Home Medications Medication Instructions Recorded Confirmed Cholecalciferol [Vitamin D3 (25 1,000 unit PO DAILY 05/23/14 11/24/16 Mcg = 1000 Iu)] ARIPiprazole [Abilify] 30 mg PO DAILY 11/18/16 11/24/16 Aclidinium [place] [Tudorza 1 puff PO RT-BID 11/18/16 11/24/16 Pressair] Albuterol Inhaler [Ventolin Hfa 1 - 2 puff INHALATION RT-Q6H PRN 11/18/16 11/24/16 Inhaler] Atorvastatin [Lipitor] 40 mg PO HS 11/18/16 11/24/16 Fenofibrate [Lofibra] 160 mg PO HS 11/18/16 11/24/16 Gabapentin [Neurontin] 600 mg PO TID 11/18/16 11/24/16 LORazepam [Ativan] 0.5 mg PO TID 11/18/16 11/24/16 Lisinopril [Zestril] 10 mg PO DAILY 11/18/16 11/24/16 Mometasone/Formoterol [Dulera 200 2 puff INHALATION RT-BID 11/18/16 11/24/16 Mcg/5 Mcg Inhaler] oxyCODONE HCL/ACETAMINOPHEN 1 tab PO TID PRN 11/18/16 11/24/16 [Percocet 10-325 mg] Allergies Allergy/AdvReac Type Severity Reaction Status Date / Time ketorolac tromethamine AdvReac Unknown Verified 07/31/19 14:21 [From Toradol] tincture of benzoin Allergy Rash/Hives Uncoded 11/24/16 22:02 Review of Systems ROS Other: All systems not noted in ROS Statement are negative. <Al Cohen - Last Filed: 07/31/19 18:17> ROS Other: All systems not noted in ROS Statement are negative. <Rola Villatoro - Last Filed: 07/31/19 18:41> ROS Statement: Those systems with pertinent positive or pertinent negative responses have been documented in the HPI. EKG Findings - EKG Comments: EKG Findings:: Ventricular rate 77 bpm, NE interval 142 ms, QRS duration 84 ms, QT/QTC 390/441 ms. Normal sinus rhythm. Nonspecific T wave abnormalities. No ST elevation or depression is appreciated. Artifact noted. <Rola Villatoro - Last Filed: 07/31/19 18:41> Past Medical History Past Medical History: COPD, Hyperlipidemia, Hypertension Additional Past Medical History / Comment(s): back pain, degenerative disc disease, herniated disc., carpel tunnel History of Any Multi-Drug Resistant Organisms: None Reported Past Surgical History: Section Additional Past Surgical History / Comment(s): exploritory surgery last december to check ovaries related to increased pain Past Anesthesia/Blood Transfusion Reactions: No Reported Reaction Past Psychological History: Anxiety, Depression Smoking Status: Current every day smoker Past Alcohol Use History: None Reported, Occasional Past Drug Use History: None Reported - Past Family History Father Family Medical History: Coronary Artery Disease (CAD), Hypertension, Myocardial Infarction ([place]) Mother Family Medical History: Congestive Heart Failure (CHF), Diabetes Mellitus, H ypertension Sister(s) Family Medical History: CVA/TIA, Myocardial Infarction ([place]) Additional Family Medical History / Comment(s): passed from massive brain bleed Brother(s) Family Medical History: Myocardial Infarction ([place]) Daughter(s) Family Medical History: No Reported History Son(s) Family Medical History: No Reported History <Rola Villatoro - Last Filed: 07/31/19 18:41> General Exam Limitations: no limitations <Rola Villatoro - Last Filed: 07/31/19 18:41> - General Exam Comments Initial Comments: General: The patient is awake and alert, in no distress, and does not appear acutely ill. Eye: +3 m m pupils are equal, round and reactive to light, extra-ocular movements are intact. No nystagmus. There is normal conjunctiva bilaterally. No signs of icterus. Ears, nose, mouth and throat: There are moist mucous membranes and no oral lesions. Neck: The neck is supple, there is no tenderness or JVD. Cardiovascular: There is a regular rate and rhythm. No murmur, rub or gallop is appreciated. Respiratory: Lungs are clear to auscultation, respirations are non-labored, breath sounds are equal. No wheezes, stridor, rales, or rhonchi. Gastrointestinal: Soft, non-distended, non-tender abdomen without masses or organomegaly noted. There is no rebound or guarding present. Musculoskeletal: Normal ROM, no tenderness. Strength 5/5. Sensation intact. Radial and DP pulses equal bilaterally 2+. Neurological: A&O x 3. CN II-XII intact grossly, There are no obvious motor or sensory deficits. Coordination appears grossly intact. Speech is normal. Skin: Skin is warm and dry and no rashes or lesions are noted. No LE edema. NO calf pain. Psychiatric: Cooperative, appropriate mood & affect, normal judgment. (Rola Villatoro) Course <Al Cohen - Last Filed: 07/31/19 18:17> Vital Signs 07/31/19 07/31/19 07/31/19 14:21 15:31 16:24 Temperature 97.8 F Pulse Rate 93 78 96 Respiratory 18 18 18 Rate Blood Pressure 149/92 133/89 127/73 O2 Sat by Pulse 97 99 94 L Oximetry 07/31/19 17:39 Temperature Pulse Rate 76 Respiratory 18 Rate Blood Pressure 137/94 O2 Sat by Pulse 97 Oximetry - Reevaluation(s) Reevaluation #1: 07/31/19 18:17 PA supervision: I personally do a [id number] evaluation the patient she presents with complaints of chest pain which feels somewhat sharp but also somewhat pressure like. She does have a strong family history of heart disease in her age group and younger. She is a smoker. She's not been previously diagnosed with heart disease. The initial workup is negative for evidence of acute STEMI however the presentation is consistent with ACS/unstable angina. Patient will be admitted the case is discussed with Dr. Palacio. (Al Cohen) Chest Pain MDM <Rola Villatoro - Last Filed: 07/31/19 18:41> - MDM 53yo female presents today for chief complaint of chest pain. Patient also admits to scapular pain described as dull aching. Patient has had nausea. Patient is a every day smoker. Age 53 no diaphoresis patient appears nontoxic i n no distress. Nitro slightly helped pain per patient. Initial troponin (-). CXR (-) Lung clear. VS stable. Patient dimer WNL. Patient will be admitted for chest pain r/o cardiology evaluation> patient evaluated by my attending physician in person who is agreeable with care plan and admission. Heparin initiated given patient has a strong familial history of premature CAD<50. (Rola Villatoro) Disposition <Al Cohen - Last Filed: 07/31/19 18:17> Is patient prescribed a controlled substance at d/c from ED?: No Time of Disposition: 17:37 Decision to Admit Reason: Admit from EC Decision Date: 07/31/19 Decision Time: 17:38 <Rola Villatoro - Last Filed: 07/31/19 18:41> Clinical Impression: Chest pain Disposition: ADMITTED IP TO THIS [facility] Condition: Stable
[2019-07-31] MEDS ORDERED: MORPHINE SULFATE 4 MG/ML SYRINGE IVP STA (16:42)
--- NOTE | 2019-07-31 17:07 | US ---
EXAMINATION TYPE: US abdomen limited DATE OF EXAM: 07/31/2019 COMPARISON: NONE CLINICAL HISTORY: ruq pain on exam, right shoulder pain. Difficult exam due to patient body habitus. Patient ate at 1:00pm EXAM MEASUREMENTS: Liver Length: 15.3 cm Gallbladder Wall: 0.2 cm CBD: 0.3 cm Right Kidney: 10.1 x 5.1 x 5.1 cm Pancreas: Obscured by bowel gas Liver: Attenuating Gallbladder: wnl Evidence for sonographic Young's sign: No CBD: wnl as visualized Right Kidney: No hydronephrosis or masses seen IMPRESSION: 1. Liver is increased in attenuation suggestive of fatty infiltration, hepatocellular disease or hepa titis. 2. Nondiagnostic assessment of the pancreas due to bowel gas. 3. No evidence of gallstones.
--- NOTE | 2019-07-31 17:15 | XR ---
EXAMINATION TYPE: XR chest 2V DATE OF EXAM: 07/31/2019 COMPARISON: 11/24/2016 TECHNIQUE: PA and lateral views submitted. HISTORY: Chest pain FINDINGS: The lungs are clear and there is no pneumothorax, pleural effusion, or focal pneumonia. Heart size stable with no overt failure. Hypertrophic and degenerative change of the spine. Mild hyperinflation correlate for COPD. IMPRESSION: 1. No acute process.
[2019-07-31] MEDS ORDERED: NITROGLYCERIN SL TABS 0.4 MG TAB SUBLINGUAL PRN (17:25)
[2019-07-31] MEDS ORDERED: HYDROmorphone 0.5 MG/0.5 ML SYRINGE IVP STA (17:25)
[2019-07-31] MEDS ORDERED: HEPARIN SODIUM,PORCINE 5,000 UNIT/ML 1 ML VIAL IV PRN (17:35)
[2019-07-31] MEDS ORDERED: HEPARIN SODIUM,PORCINE 5,000 UNIT/ML 1 ML VIAL IV ONE (17:35)
[2019-07-31] MEDS ORDERED: HEPARIN SOD,PORK IN 0.45% NACL 25,000 UNIT in 0.45% NACL 1 250ML.BAG IV SCH (17:45)
[2019-07-31] MEDS ORDERED: LORazepam 0.5 MG TAB PO PRN (21:18)
[2019-07-31] MEDS ORDERED: ALBUTEROL NEBULIZED 2.5 MG/3 ML INHALATION PRN (21:18)
[2019-07-31] MEDS: GABAPENTIN 400 MG CAP PO SCH (21:43)
[2019-07-31] MEDS: ATORVASTATIN 80 MG TAB PO SCH (21:44)
[2019-07-31] MEDS: MORPHINE SULFATE ER 15 MG TABLET PO PRN (21:44)
[2019-07-31] MEDS: FENOFIBRATE 160 MG TAB PO SCH (21:44)
[2019-07-31] MEDS: oxyCODONE-APAP 10-325MG 1 EACH TAB PO PRN (21:44)
[2019-07-31] MEDS: LISINOPRIL 20 MG TAB PO SCH (21:44)
[2019-07-31] MEDS: VERAPAMIL SR 120 MG TABLET.ER PO SCH (21:44)
[2019-08-01] MEDS ORDERED: MORPHINE SULFATE 2 MG/ML SYRINGE IVP STA ×2 (01:43→16:33)
[2019-08-01] MEDS: SYMBICORT 160-4.5 MCG INHALER INHALATION SCH ×2 (07:46→19:50)
[2019-08-01] MEDS: IPRATROPIUM 0.5 MG/2.5 ML NEBU INHALATION SCH ×4 (07:46→19:50)
[2019-08-01] MEDS: oxyCODONE-APAP 10-325MG 1 EACH TAB PO PRN ×2 (08:09→20:13)
[2019-08-01] MEDS ORDERED: DOBUTamine DRIP for NUC MED 500 MG in DEXTROSE/WATER 1 250ML.BAG IV ONE (08:40)
--- NOTE | 2019-08-01 08:43 | P.CRDCN ---
History of Present Illness History of present illness: This is Dr. Weathers dictating a consult on this patient The patient was interviewed and examined by me IMPRESSION / ASSESSMENT: Fairly constant left precordial chest discomfort going through to the back Hypertension, blood pressure well controlled Normal cardiac enzymes No ECG abnormalities suggestive of ischemia current smoker and normal d-dimer PLAN: CT of the chest to assess thoracic aorta If normal then proceed with a dobutamine stress echo tomorrow Continue current medications without any changes HPI Patient presented with midsternal chest discomfort and discomfort under her left breast. This goes through to her back No dizziness or loss of consciousness no palpitations ROS: No fever chills or rigors, no cough, phlegm or expectoration, no nausea, vomiting or diarrhea, no hematuria, dysuria, no musculoskeletal complaints, no strokes or seizures, no skin lesions. EXAMINATION: Blood pressure is well controlled 111/65 mmHg afebrile pulse rate in the 60s normal respirations Breath sounds are clear no rhonchi no crackles Normal heart sounds normal S1 normal S2 The chest wall does not appear to be tender Abdomen is soft nontender External days warm no edema Increased BMI REVIEW OF LABS, ECG & MEDICAL DATA Cardiac enzymes, normal d-dimer, normal electrolytes and normal renal function Past Medical History Past Medical History: COPD, Hyperlipidemia, Hypertension Additional Past Medical History / Comment(s): back pain, degenerative disc disease, herniated disc., carpel tunnel History of Any Multi-Drug Resistant Organisms: None Reported Past Surgical History: Section Additional Past Surgical History / Comment(s): exploritory surgery last december to check ovaries related to increased pain Past Anesthesia/Blood Transfusion Reactions: No Reported Reaction Smoking Status: Current every day smoker - Past Family History Father Family Medical History: Coronary Artery Disease (CAD), Hypertension, Myocardial Infarction ([place]) Mother Family Medical History: Congestive Heart Failure (CHF), Diabetes Mellitus, Hypertension Sister(s) Family Medical History: CVA/TIA, Myocardial Infarction ([place]) Additional Family Medical History / Comment(s): passed from massive brain bleed Brother(s) Family Medical History: Myocardial Infarction ([place]) Daughter(s) Family Medical History: No Reported History Son(s) Family Medical History: No Reported History Medications and Allergies Home Medications Medication Instructions Recorded Confirmed Type Aclidinium [place] [Tudorza 1 puff PO RT-BID 11/18/16 07/31/19 History Pressair] Albuterol Inhaler [Ventolin Hfa 2 puff INHALATION RT-Q6H PRN 11/18/16 07/31/19 History Inhaler] Fenofibrate [Lofibra] 160 mg PO HS 11/18/16 07/31/19 History Gabapentin [Neurontin] 600 mg PO BID 11/18/16 07/31/19 History LORazepam [Ativan] 0.5 mg PO BID PRN 11/18/16 07/31/19 History Mometasone/Formoterol [Dulera 200 2 puff INHALATION RT-BID 11/18/16 07/31/19 History Mcg/5 Mcg Inhaler] oxyCODONE HCL/ACETAMINOPHEN 1 tab PO BID PRN 11/18/16 07/31/19 History [Percocet 10-325 mg] Atorvastatin [Lipitor] 80 mg PO HS 07/31/19 07/31/19 History Ergocalciferol (Vitamin D2) 50,000 unit PO TH 07/31/19 07/31/19 History [Drisdol] Gabapentin 800 mg PO HS 07/31/19 07/31/19 History Lisinopril 20 mg PO HS 07/31/19 07/31/19 History Morphine Sulfate [Morphine Sulfate 15 mg PO BID PRN 07/31/19 07/31/19 History ER] Verapamil HCl [Verapamil ER] 120 mg PO DAILY 07/31/19 07/31/19 History Allergies Allergy/AdvReac Type Severity Reaction Status Date / Time ketorolac tromethamine AdvReac Unknown Verified 07/31/19 20:15 [From Toradol] tincture of benzoin Allergy Rash/Hives Uncoded 07/31/19 20:15 Physical Exam Vitals: Vital Signs Temp Pulse Pulse Resp BP BP Pulse Ox 08/01/19 07:54 60 08/01/19 07:45 58 L 98 08/01/19 07:31 98.1 F 64 18 106/62 95 08/01/19 04:00 97.6 F 60 18 111/65 94 L 07/31/19 23:51 97.6 F 73 18 147/78 96 07/31/19 23:02 18 07/31/19 20:00 18 07/31/19 19:41 97.5 F L 61 18 146/87 99 07/31/19 18:56 98.0 F 69 18 151/74 97 07/31/19 17:39 76 18 137/94 97 07/31/19 16:24 96 18 127/73 94 L 07/31/19 15:31 78 18 133/89 99 07/31/19 14:21 97.8 F 93 18 149/92 97 Intake and Output 07/31/19 08/01/19 08/01/19 22:59 06:59 14:59 Intake Total 78.182 Balance 78.182 Intake: Intake, IV Titration 78.182 Amount Heparin Sod,Pork in 0.45% 78.182 NaCl 25,000 unit In 0.45 % NaCl 1 250ml.bag @ 10.5 UNITS/KG/HR 10.002 mls/ hr IV .Q24H [facility] Rx#: [id number] Other: # Voids 1 1 Weight 95.254 kg Results 07/31/19 14:51 07/31/19 14:51 Cardiac Enzymes 07/31/19 07/31/19 07/31/19 Range/Units 14:51 14:51 20:25 AST 24 (14-36) U/L Troponin I <0.012 <0.012 (0.000-0.034) ng/mL 08/01/19 Range/Units 02:06 AST (14-36) U/L Troponin I <0.012 (0.000-0.034) ng/mL Coagulation 07/31/19 08/01/19 Range/Units 14:51 02:06 PT 9.9 (9.0-12.0) sec APTT 23.3 30.9 H (22.0-30.0) sec CBC 07/31/19 Range/Units 14:51 WBC 8.3 (3.8-10.6) k/uL RBC 4.62 (3.80-5.40) m/uL Hgb 14.2 (11.4-16.0) gm/dL Hct 42.0 (34.0-46.0) % Plt Count 350 (150-450) k/uL Comprehensive Metabolic Panel 07/31/19 Range/Units 14:51 Sodium 142 (137-145) mmol/L Potassium 4.3 (3.5-5.1) mmol/L Chloride 107 (98-107) mmol/L Carbon Dioxide 26 (22-30) mmol/L BUN 8 (7-17) mg/dL Creatinine 0.77 (0.52-1.04) mg/dL Glucose 113 H (74-99) mg/dL Calcium 9.7 (8.4-10.2) mg/dL AST 24 (14-36) U/L ALT 28 (9-52) U/L Alkaline Phosphatase 73 (38-126) U/L Total Protein 7.7 (6.3-8.2) g/dL Albumin 4.6 (3.5-5.0) g/dL Current Medications Generic Name Dose Route Start Last Admin Trade Name Freq PRN Reason Stop Dose Admin Albuterol Sulfate 0.5 mg 07/31/19 21:18 Ventolin Nebulized INHALATION RT-Q6H PRN Shortness Of Breath Aspirin 325 mg 08/01/19 09:00 Aspirin PO DAILY [facility] Atorvastatin Calcium 80 mg 07/31/19 21:30 07/31/19 21:44 Lipitor PO 80 mg HS PARAMJIT Administration Budesonide/Formoterol Fumarate 2 puff 08/01/19 08:00 08/01/19 07:46 Symbicort 160-4.5 Mcg Inhaler INHALATION 2 puff RT-BID PARAMJIT Administration Ergocalciferol 50,000 unit 08/05/19 09:00 Vitamin D2 PO Th@0900 PARAMJIT Fenofibrate 160 mg 07/31/19 21:30 07/31/19 21:44 Lofibra PO 160 mg HS PARAMJIT Administration Gabapentin 800 mg 07/31/19 21:30 07/31/19 21:43 Neurontin PO 800 mg HS PARAMJIT Administration Gabapentin 600 mg 08/01/19 09:00 Neurontin PO BID PARAMJIT Heparin Sodium (Porcine) 0 unit 07/31/19 17:35 Heparin IV PER PROTOCOL PRN Low PTT Protocol Dobutamine HCl/Dextrose 500 mg 250 mls @ 28.576 mls/hr 08/01/19 08:40 / IV Solution IV 08/01/19 17:24 .Q8H45M ONE Protocol 10 MCG/KG/MIN Ipratropium [place] 0.5 mg 08/01/19 08:00 08/01/19 07:46 Atrovent Nebulized INHALATION 0.5 mg RT-QID PARAMJIT Administration Lisinopril 20 mg 07/31/19 21:30 07/31/19 21:44 Zestril PO 20 mg HS PARAMJIT Administration Lorazepam 0.5 mg 07/31/19 21:18 Ativan PO BID PRN Anxiety Morphine Sulfate 15 mg 07/31/19 21:18 07/31/19 21:44 Ms Contin PO 15 mg BID PRN Administration Pain Nitroglycerin 0.4 mg 07/31/19 17:25 Nitrostat SUBLINGUAL Q5M PRN Chest Pain Oxycodone/Acetaminophen 1 each 07/31/19 21:18 08/01/19 08:09 Percocet 10-325 PO 1 each BID PRN Administration Pain Verapamil HCl 120 mg 07/31/19 21:30 07/31/19 21:44 Isoptin Sr PO 120 mg DAILY PARAMJIT Administration Intake and Output 07/31/19 08/01/19 08/01/19 22:59 06:59 14:59 Intake Total 78.182 Balance 78.182 Intake: Intake, IV Titration 78.182 Amount Heparin Sod,Pork in 0.45% 78.182 NaCl 25,000 unit In 0.45 % NaCl 1 250ml.bag @ 10.5 UNITS/KG/HR 10.002 mls/ hr IV .Q24H [facility] Rx#: [id number] Other: # Voids 1 1 Weight 95.254 kg 07/31/19 14:51 07/31/19 14:51
[2019-08-01] MEDS ORDERED: GABAPENTIN 300 MG CAP PO SCH (09:00)
[2019-08-01 09:18] LABS: Basophils % (A) 1 %; Eosinophils # (A) 0.2 k/uL (0-0.7); Eosinophils % (A) 3 %; HCT 38.8 % (34.0-46.0); HGB 12.9 gm/dL (11.4-16.0); Lymphocytes # (A) 3.4 k/uL (1.0-4.8); Lymphocytes % (A) 44 %; MCH 30.1 pg (25.0-35.0); MCHC 33.1 g/dL (31.0-37.0); MCV 90.7 fL (80.0-100.0); Mean Platelet Volume 6.9; Monocytes # (A) 0.3 k/uL (0-1.0); Monocytes % (A) 4 %; Neutrophils # (A) 3.5 k/uL (1.3-7.7); Neutrophils % (A) 46 %; Platelet Count 307 k/uL (150-450); RBC 4.28 m/uL (3.80-5.40); RDW 12.5 % (11.5-15.5); WBC 7.7 k/uL (3.8-10.6)
[2019-08-01 09:29] LABS: Cholesterol 106 mg/dL (<200); HDL Cholesterol 26 mg/dL (40-60); LDL Cholesterol,Calculated 57 mg/dL (0-99); Triglycerides 114 mg/dL (<150)
[2019-08-01] MEDS: ASPIRIN 325 MG TAB PO SCH (09:57)
[2019-08-01] MEDS: VERAPAMIL SR 120 MG TABLET.ER PO SCH (09:57)
[2019-08-01] MEDS: MORPHINE SULFATE ER 15 MG TABLET PO PRN ×2 (10:00→20:13)
--- NOTE | 2019-08-01 10:25 | CT ---
EXAMINATION TYPE: CT angio chest DATE OF EXAM: 08/01/2019 9:24 AM COMPARISON: None. HISTORY: midline to left side chest pain CT DLP: 1075.6 mGycm Automated exposure control for dose reduction was used. CONTRAST: CTA scan of the thorax is performed without and with IV Contrast, patient injected with 100 mL of Iso sandy 370, pulmonary embolism protocol. . FINDINGS: There is minimal dependent atelectasis in the dependent portions of both lungs. There is no significant axillary, internal mammary, mediastinal or hilar adenopathy. There is no evidence of pulmonary embolus. The aorta is normal in caliber without evidence of dissection. There is no pleural or pericardial flu id. The heart is not enlarged. Visualized portions of the upper abdomen are clear. There is minimal hypertrophic spondylosis within the spine. IMPRESSION: 1. THIS EXAMINATION IS NEGATIVE FOR PULMONARY EMBOLUS. 2. THE AORTA IS NORMAL IN CALIBER WITHOUT EVIDENCE OF DISSECTION.
--- NOTE | 2019-08-01 15:18 | P.HPIM ---
History of Present Illness H&P Date: 08/01/19 Chief Complaint: Chest pain Mrs. Meredith is a 53-year-old female with a past medical history of COPD, hypertension, hyperlipidemia and degenerative discogenic disease, herniated disc carbetalol syndrome, in the hospital with a chief complaint of substernal chest pain going on for 2 weeks. Patient said that for the past 2-3 weeks she has been having chest pain on and off but for the last couple of days the chest pain seems to be stay in the area below her left breast and also substernal region. She states the pain mostly radiates to the upper back and also to the area between her shoulder blades. It is associated with mild sweating but she denied having any difficulty in breathing. She denies having any nausea at that time. Patient denied having any cough, fevers or chills. She denies having any orthopnea or PND. She denies having any swelling of her lower extremities. Patient is a current smoker smokes 5-6 cigarettes per day. She denies having any recent travel. Patient also complains of chronic low back pain. She states that the pain is mostly in her lower back and radiates to the upper back and also bilateral lower extremities. She denies having any tingling or numbness in her feet. No loss of bowel or bladder control. In the ER patient had troponins drawn which are less than 0.012 and an EKG that was showing no acute ST or T-wave elevation. D-dimer is 0.20 and a chest x-ray for no acute cardiopulmonary process. Patient also had a CT angiogram of the chest that was negative for PE or aortic dissection. So admitted for further evaluation. Review of Systems REVIEW OF SYSTEMS: PSYCH: no anxiety or depression NEURO:No c/o weakness of the extremties, No facial droop, No speech abnormalities. VASCULAR: no edema HEMATOLOGIC: No history of easy bleeding and bruising . No recent infections . RESPIRATORY: No cough, No SOB, No chest discomfort. 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 No constipation or diarrhea. All 13 review of systems done and negative except for the ones mentioned above. Past Medical History Past Medical History: COPD, Hyperlipidemia, Hypertension Additional Past Medical History / Comment(s): back pain, degenerative disc disease, herniated disc., carpel tunnel History of Any Multi-Drug Resistant Organisms: None Reported Past Surgical History: Section Additional Past Surgical History / Comment(s): exploritory surgery last december to check ovaries related to increased pain Past Anesthesia/Blood Transfusion Reactions: No Reported Reaction Smoking Status: Current every day smoker - Past Family History Father Family Medical History: Coronary Artery Disease (CAD), Hypertension, Myocardial Infarction ([place]) Mother Family Medical History: Congestive Heart Failure (CHF), Diabetes Mellitus, Hypertension Sister(s) Family Medical History: CVA/TIA, Myocardial Infarction ([place]) Additional Family Medical History / Comment(s): passed from massive brain bleed Brother(s) Family Medical History: Myocardial Infarction ([place]) Daughter(s) Family Medical History: No Reported History Son(s) Family Medical History: No Reported History Medications and Allergies Home Medications Medication Instructions Recorded Confirmed Type Aclidinium [place] [Tudorza 1 puff PO RT-BID 11/18/16 07/31/19 History Pressair] Albuterol Inhaler [Ventolin Hfa 2 puff INHALATION RT-Q6H PRN 11/18/16 07/31/19 History Inhaler] Fenofibrate [Lofibra] 160 mg PO HS 11/18/16 07/31/19 History Gabapentin [Neurontin] 600 mg PO BID 11/18/16 07/31/19 History LORazepam [Ativan] 0.5 mg PO BID PRN 11/18/16 07/31/19 History Mometasone/Formoterol [Dulera 200 2 puff INHALATION RT-BID 11/18/16 07/31/19 History Mcg/5 Mcg Inhaler] oxyCODONE HCL/ACETAMINOPHEN 1 tab PO BID PRN 11/18/16 07/31/19 History [Percocet 10-325 mg] Atorvastatin [Lipitor] 80 mg PO HS 07/31/19 07/31/19 History Ergocalciferol (Vitamin D2) 50,000 unit PO TH 07/31/19 07/31/19 History [Drisdol] Gabapentin 800 mg PO HS 07/31/19 07/31/19 History Lisinopril 20 mg PO HS 07/31/19 07/31/19 History Morphine Sulfate [Morphine Sulfate 15 mg PO BID PRN 07/31/19 07/31/19 History ER] Verapamil HCl [Verapamil ER] 120 mg PO DAILY 07/31/19 07/31/19 History Allergies Allergy/AdvReac Type Severity Reaction Status Date / Time ketorolac tromethamine AdvReac Unknown Verified 07/31/19 20:15 [From Toradol] tincture of benzoin Allergy Rash/Hives Uncoded 07/31/19 20:15 Physical Exam Vitals: Vital Signs Temp Pulse Pulse Resp BP BP BP 08/01/19 12:00 98.1 F 60 18 130/82 08/01/19 08:00 64 18 08/01/19 07:54 60 08/01/19 07:45 58 L 08/01/19 07:31 98.1 F 64 18 106/62 08/01/19 04:00 97.6 F 60 18 111/65 07/31/19 23:51 97.6 F 73 18 147/78 07/31/19 23:02 18 07/31/19 20:00 18 07/31/19 19:41 97.5 F L 61 18 146/87 07/31/19 18:56 98.0 F 69 18 151/74 07/31/19 17:39 76 18 137/94 07/31/19 16:24 96 18 127/73 07/31/19 15:31 78 18 133/89 Pulse Ox 08/01/19 12:00 95 08/01/19 08:00 08/01/19 07:54 08/01/19 07:45 98 08/01/19 07:31 95 08/01/19 04:00 94 L 07/31/19 23:51 96 07/31/19 23:02 07/31/19 20:00 07/31/19 19:41 99 07/31/19 18:56 97 07/31/19 17:39 97 07/31/19 16:24 94 L 07/31/19 15:31 99 Intake and Output 07/31/19 08/01/19 08/01/19 22:59 06:59 14:59 Intake Total 78.182 Balance 78.182 Intake: Intake, IV Titration 78.182 Amount Heparin Sod,Pork in 0.45% 78.182 NaCl 25,000 unit In 0.45 % NaCl 1 250ml.bag @ 10.5 UNITS/KG/HR 10.002 mls/ hr IV .Q24H [facility] Rx#: [id number] Other: Voiding Method Toilet # Voids 1 1 3 Weight 95.254 kg GEN. APPEARANCE: alert, in no apparent distress HEAD EXAM: atraumatic, normocephalic, normal inspection EYE EXAM: normal appearance, PERRL, EOMI. no pallor, no icterus ENT EXAM: normal exam, mucous membranes moist NECK EXAM: normal inspection. no thyromegaly or lymphadenopathy RESPIRATORY EXAM: normal lung sounds bilaterally. Few rhonchi in the lower juanita ng cooper. CARDIOVASCULAR EXAM: regular rate, normal rhythm, normal heart sounds. GI/ABDOMINAL EXAM: soft, normal bowel sounds. no tenderness guarding, rebound or rigidity EXTREMITIES EXAM: no pedal edema EXAMINATION BACK : No point tenderness. NEUROLOGICAL EXAM: alert, oriented X3, no focal deficits PSYCHIATRIC EXAM: normal affect, normal mood SKIN EXAM: no rash Results CBC & Chem 7: 08/01/19 08:52 07/31/19 14:51 Labs: Abnormal Lab Results - Last 24 Hours (Table) 07/31/19 08/01/19 08/01/19 Range/Units 14:51 02:06 08:52 APTT 30.9 H (22.0-30.0) sec Glucose 113 H (74-99) mg/dL HDL Cholesterol 26 L (40-60) mg/dL 08/01/19 Range/Units 08:52 APTT 35.5 H (22.0-30.0) sec Glucose (74-99) mg/dL HDL Cholesterol (40-60) mg/dL Thrombosis Risk Factor Assmnt - Choose All That Apply Each Factor Represents 1 point: Age 41-60 years Thrombosis Risk Factor Assessment Total Risk Factor Score: 1 Thrombosis Risk Factor Assessment Level: Low Risk Assessment and Plan Assessment: ASSESSMENT Chest pain Hypertension Hyperlipidemia Chronic low back pain Herniated disc Degenerative disc disease Bilateral carpal tunnel syndrome Nicotine dependence Obesity with BMI of 32.9 PLAN: Patient has chest pain, serial troponins and EKGs have been within normal limits. Patient has risk factors including smoking, obesity, hypertension, so the patient is scheduled for a dobutamine stress echo for tomorrow morning. Patient to be kept nothing by mouth tonight. Patient has been restarted on all her home medications. Further recommendations to follow depending on the progress of the patient.
[2019-08-01] MEDS: GABAPENTIN 400 MG CAP PO SCH (20:13)
[2019-08-01] MEDS: LISINOPRIL 20 MG TAB PO SCH (20:13)
[2019-08-01] MEDS: ATORVASTATIN 80 MG TAB PO SCH (20:14)
[2019-08-01] MEDS: FENOFIBRATE 160 MG TAB PO SCH (20:14)
[2019-08-02] MEDS: ASPIRIN 325 MG TAB PO SCH (07:49)
[2019-08-02] MEDS: MORPHINE SULFATE ER 15 MG TABLET PO PRN (07:49)
[2019-08-02 08:12] LABS: Basophils % (A) 0 %; Eosinophils # (A) 0.3 k/uL (0-0.7); Eosinophils % (A) 3 %; HCT 37.9 % (34.0-46.0); HGB 12.7 gm/dL (11.4-16.0); Lymphocytes # (A) 3.1 k/uL (1.0-4.8); Lymphocytes % (A) 34 %; MCH 30.8 pg (25.0-35.0); MCHC 33.4 g/dL (31.0-37.0); Mean Platelet Volume 8.8; Monocytes # (A) 0.5 k/uL (0-1.0); Monocytes % (A) 5 %; Neutrophils # (A) 5.1 k/uL (1.3-7.7); Neutrophils % (A) 56 %; Platelet Count 289 k/uL (150-450); RBC 4.12 m/uL (3.80-5.40); RDW 12.4 % (11.5-15.5); WBC 9.1 k/uL (3.8-10.6)
[2019-08-02] MEDS ORDERED: GABAPENTIN 300 MG CAP PO SCH (09:00)
--- NOTE | 2019-08-02 11:28 | P.PN ---
Subjective This is a pleasant 53-year-old female past medical history significant for hypertension, dyslipidemia, COPD and chronic nicotine dependence. She has followed in the office with Dr. Conde in the past. She is seen and examined in no acute distress. She is chest pain free. CTA of the chest negative for PE with normal aorta. Blood pressure 97/67 heart rate 53 afebrile and maintaining oxygen saturation on room air. Laboratory data reviewed, WBC 9.1, hemoglobin 12.7, platelets 289. GENERAL: Well-appearing, well-nourished and in no acute distress. NECK: Supple without JVD or thyromegaly. LUNGS: Breath sounds clear to auscultation bilaterally. Respiration equal and unlabored. No wheezes, rales or rhonchi. HEART: Regular rate and rhythm without murmurs, rubs or gallops. S1 and S2 heard. EXTREMITIES: Normal range of motion, no edema. No clubbing or cyanosis. Peripheral pulses intact. ASSESSMENT Left precordial chest pain, and acute coronary event has been ruled out. Hypertension Chronic nicotine dependence PLAN Proceed with dobutamine stress echo as previously ordered. Smoking cessation recommended. If stress test is normal she is stable for discharge from a cardiac perspective. Follow up with Dr. Conde upon discharge. Nurse Practitioner note has been reviewed, I agree with a documented findings and plan of care. Patient was seen and examined. Objective - Vital Signs Vital signs: Vital Signs Temp 97.3 F L 08/02/19 07:39 Pulse 53 L 08/02/19 07:39 Resp 18 08/02/19 07:39 BP 97/67 08/02/19 07:39 Pulse Ox 96 08/02/19 07:39 Intake & Output 08/01/19 08/02/19 08/02/19 18:59 06:59 18:59 Other: Voiding Method Toilet Toilet Toilet # Voids 3 1 - Labs CBC & Chem 7: 08/02/19 06:45 07/31/19 14:51
[2019-08-02 12:03] VITALS: BP 118/65; TEMP 97.6
[2019-08-02] MEDS: oxyCODONE-APAP 10-325MG 1 EACH TAB PO PRN (12:07)
[2019-08-02] MEDS: SYMBICORT 160-4.5 MCG INHALER INHALATION SCH (13:11)
[2019-08-02] MEDS: IPRATROPIUM 0.5 MG/2.5 ML NEBU INHALATION SCH ×2 (13:11→13:12)
[2019-08-02 13:14] VITALS: PULSE 60
[2019-08-02] MEDS: VERAPAMIL SR 120 MG TABLET.ER PO SCH (13:30)
[2019-08-02] MEDS ORDERED: INFLUENZA VACCINE (6 MOS+) 60 MCG/0.5 ML SYRINGE IM ONE (13:38)
--- NOTE | 2019-08-02 15:22 | ECHOS ---
STRESS ECHOCARDIOGRAM INDICATIONS: Chest pain. MEDICATIONS: BASELINE HEART RATE: 50 BASELINE BLOOD PRESSURE: 107/53 MAXIMUM HEART RATE: 158 MAXIMUM BLOOD PRESSURE: 179/70 85% MPHR: 144 100% MPHR: 169 METS: MAXIMUM STAGE REACHED: TOTAL EXERCISE TIME: CLINICAL INFORMATION: Heart rate 50, pressure is 107/53 mmHg. Baseline EKG showed sinus rhythm. Dobutamine infusion at the dose of 10 mcg/kg per minute was initiated and increased to 30 mics per kg per minute per protocol the max heart rate was 158 which is about 85% of maximum predicted heart rate. Maximum blood pressure was 179/70 mm Hg. Clinically the patient did not have any symptoms. The EKG did not show any significant ST or T-wave abnormalities concerning for ischemia. ECHOCARDIOGRAM IMAGES: Echocardiogram images from parasternal long axis view, parasternal short axis view, apical 4 chamber and apical 2 chamber view were obtained as the baseline images. At low dose dobutamine infusion, at peak heart rate as well as on recovery and the echocardiogram images showed good augmentation in the left ventricular systolic function without any evidence of wall motion abnormalities concerning for ischemia. CONCLUSION: 1. Normal EKG in response to dobutamine. 2. Normal echocardiogram in response to dobutamine. 3. Essentially normal dobutamine stress echocardiogram for the patient. MMODL / IJN: [id number] /
--- NOTE | 2019-08-02 20:19 | P.DS ---
Providers Date of admission: 07/31/19 17:35 Attending physician: Vanessa Palacio Consults: 07/31/19 17:35 Consult Physician Urgent Consulting Provider: Darrell Mosher Consult Reason/Comments: left sided chest pain Do you want consulting provider notified?: Yes Primary care physician: Mike Kellermley [facility] Course: Mrs. Meredith is a 53-year-old female with a past medical history of COPD, hypertension, hyperlipidemia and degenerative discogenic disease, herniated disc carbetalol syndrome, in the hospital with a chief complaint of substernal chest pain going on for 2 weeks. Patient said that for the past 2-3 weeks she has been having chest pain on and off but for the last couple of days the chest pain seems to be stay in the area below her left breast and also substernal region. She states the pain mostly radiates to the upper back and also to the area between her shoulder blades. It is associated with mild sweating but she denied having any difficulty in breathing. She denies having any nausea at that time. Patient denied having any cough, fevers or chills. She denies having any orthopnea or PND. She denies having any swelling of her lower extremities. Patient is a current smoker smokes 5-6 cigarettes per day. She denies having any recent travel. Patient also complains of chronic low back pain. She states that the pain is mostly in her lower back and radiates to the upper back and also bilateral lower extremities. She denies having any tingling or numbness in her feet. No loss of bowel or bladder control. Hospital course - patient had troponins drawn which are less than 0.012 and an EKG that was showing no acute ST or T-wave elevation. D-dimer is 0.20 and a chest x-ray for no acute cardiopulmonary process. Patient also had a CT angiogram of the chest that was negative for PE or aortic dissection. Cardiology was consulted and the patient dobutamine stress echocardiogram done that was normal. So the patient was cleared by cardiology for discharge. Vital Signs - 24 hr 08/01/19 08/02/19 08/02/19 23:45 00:00 03:44 Temperature 98.3 F Pulse Rate Pulse Rate [ 49 L Pulse Oximetery ] Respiratory 18 18 18 Rate Blood Pressure 109/69 [Right Arm] O2 Sat by Pulse 95 Oximetry 08/02/19 08/02/19 08/02/19 04:00 07:39 12:00 Temperature 97.8 F 97.3 F L 97.6 F Pulse Rate Pulse Rate [ 57 L 53 L 68 Pulse Oximetery ] Respiratory 18 18 18 Rate Blood Pressure 110/66 97/67 118/65 [Right Arm] O2 Sat by Pulse 95 96 95 Oximetry 08/02/19 08/02/19 13:12 13:19 Temperature Pulse Rate 60 60 Pulse Rate [ Pulse Oximetery ] Respiratory Rate Blood Pressure [Right Arm] O2 Sat by Pulse Oximetry PHYSICAL EXAM GEN. APPEARANCE: alert, in no apparent distress HEENT: no pallor, no icetrus RESPIRATORY EXAM: normal lung sounds bilaterally. Few rhonchi in the lower juanita ng cooper. CARDIOVASCULAR EXAM: regular rate, normal rhythm, normal heart sounds. EXTREMITIES EXAM: no pedal edema DISCHARGE DIAGNOSIS Chest pain Hypertension Hyperlipidemia Chronic low back pain Herniated disc Degenerative disc disease Bilateral carpal tunnel syndrome Nicotine dependence Obesity with BMI of 32.9 Follow-up: Patient is advised to follow-up with her PCP Dr. Jean in 1 to 2 days and appointment for cardiology has been made for 08/13/2019. Patient Condition at Discharge: Stable Plan - Discharge Summary New Discharge Prescriptions: Continue oxyCODONE HCL/ACETAMINOPHEN [Percocet 10-325 mg] 1 tab PO BID PRN PRN Reason: Pain Gabapentin [Neurontin] 600 mg PO BID Fenofibrate [Lofibra] 160 mg PO HS Albuterol Inhaler [Ventolin Hfa Inhaler] 2 puff INHALATION RT-Q6H PRN PRN Reason: Shortness Of Breath Aclidinium [place] [Tudorza Pressair] 1 puff PO RT-BID Mometasone/Formoterol [Dulera 200 Mcg/5 Mcg Inhaler] 2 puff INHALATION RT-BID LORazepam [Ativan] 0.5 mg PO BID PRN PRN Reason: Anxiety Verapamil HCl [Verapamil ER] 120 mg PO DAILY Morphine Sulfate [Morphine Sulfate ER] 15 mg PO BID PRN PRN Reason: Pain Lisinopril 20 mg PO HS Gabapentin 800 mg PO HS Ergocalciferol (Vitamin D2) [Drisdol] 50,000 unit PO TH Atorvastatin [Lipitor] 80 mg PO HS Discharge Medication List Aclidinium [place] [Tudorza Pressair] 1 puff PO RT-BID 11/18/16 [History] Albuterol Inhaler [Ventolin Hfa Inhaler] 2 puff INHALATION RT-Q6H PRN 11/18/16 [History] Fenofibrate [Lofibra] 160 mg PO HS 11/18/16 [History] Gabapentin [Neurontin] 600 mg PO BID 11/18/16 [History] LORazepam [Ativan] 0.5 mg PO BID PRN 11/18/16 [History] Mometasone/Formoterol [Dulera 200 Mcg/5 Mcg Inhaler] 2 puff INHALATION RT-BID 11/18/16 [History] oxyCODONE HCL/ACETAMINOPHEN [Percocet 10-325 mg] 1 tab PO BID PRN 11/18/16 [History] Atorvastatin [Lipitor] 80 mg PO HS 07/31/19 [History] Ergocalciferol (Vitamin D2) [Drisdol] 50,000 unit PO TH 07/31/19 [History] Gabapentin 800 mg PO HS 07/31/19 [History] Lisinopril 20 mg PO HS 07/31/19 [History] Morphine Sulfate [Morphine Sulfate ER] 15 mg PO BID PRN 07/31/19 [History] Verapamil HCl [Verapamil ER] 120 mg PO DAILY 07/31/19 [History] Follow up Appointment(s)/Referral(s): Issa Weathers MD [STAFF PHYSICIAN] - 08/13/19 3:00 pm (With Ileana TREJO) Mike Jean MD [Primary Care Provider] - 1-2 days Patient Instructions/Handouts: Chest Pain (DC) Discharge Disposition: HOME SELF-CARE
[2019-08-03] MEDS ORDERED: ASPIRIN 81 MG PO SCH (09:00)
[2019-08-05] MEDS ORDERED: ERGOCALCIFEROL 50,000 UNIT CAP PO SCH (09:00)
== END 2019-08-02 15:42 | disposition home or self-care (01) ==
LOC: EC 14:16 → 1SOBS 17:35
PROVIDERS: ADMIT Internal Medicine; ATTEND Internal Medicine
DX: R07.89 Other chest pain (principal); R07.2 Precordial pain; I10 Essential (primary) hypertension; E78.5 Hyperlipidemia, unspecified; G89.29 Other chronic pain; M54.5 Low back pain; M51.9 Unspecified thoracic, thoracolumbar and lumbosacral intervertebral disc disorder; G56.03 Carpal tunnel syndrome, bilateral upper limbs; F17.210 Nicotine dependence, cigarettes, uncomplicated; E66.9 Obesity, unspecified; R93.2 Abnormal findings on diagnostic imaging of liver and biliary tract; J44.9 Chronic obstructive pulmonary disease, unspecified; F41.9 Anxiety disorder, unspecified; F32.9 Major depressive disorder, single episode, unspecified; Z23 Encounter for immunization; Z68.32 Body mass index [BMI] 32.0-32.9, adult; Z79.899 Other long term (current) drug therapy; Z79.51 Long term (current) use of inhaled steroids; Z79.891 Long term (current) use of opiate analgesic; Z88.5 Allergy status to narcotic agent; Z88.8 Allergy status to other drugs, medicaments and biological substances; Z98.890 Other specified postprocedural states; Z82.49 Family history of ischemic heart disease and other diseases of the circulatory system; Z83.3 Family history of diabetes mellitus; Z82.3 Family history of stroke
CPT/HCPCS: 93005 ×2; 96366 ×2; 96376 ×3; 96365; 96375; 99285; 36415; 94640 ×3; 94760; 93351; 85379; 80061; 80053; 83690; 83735; 84484 ×2; 85025 ×3; 85610; 85730 ×2; 71046; 76705; 71275; 90686; G0378 ×3; G0008; J1250; J2270 ×2; J1644 ×2; J1170; Q9967

== ENCOUNTER 2020-02-21 01:54 | Emergency (ER) | payer OTHER ==
[2020-02-21 02:07] VITALS: BP 154/100; PULSE 77; RESP 18; TEMP 98
--- NOTE | 2020-02-21 02:13 | ED ---
Chest Pain HPI - General Chief Complaint: Chest Pain Stated Complaint: Chest Pain Source: patient, EMS, RN notes reviewed, old records reviewed Mode of arrival: EMS Limitations: no limitations - History of Present Illness Initial Comments: This is a 54-year-old female DF for evaluation patient presents today for chest pain neck pain. History of chest pain or heart disease. Patient states she has chronic back pain and multiple medications at home for neck pain symptoms are just progressing mildly. Patient is not short of breath currently no significant sick contacts or travel history no cough or congestion. Patient does have main complaint being of neck pain today. But also concern for chest pain and she has been having episodically MD Complaint: chest pain, other (Neck pain) -: days(s) Onset: during rest, during exertion Pain Location: substernal Pain Radiation: none Severity: moderate Severity scale (1-10): 4 (() Quality: tightness, aching Consistency: intermittent Improves With: nothing Worsens With: nothing Context: other (History of same) Anginal Symptoms: other (None) Other Symptoms: palpitations Treatments Prior to Arrival: none - Related Data Home Medications Medication Instructions Recorded Confirmed Aclidinium [place] [Tudorza 1 puff PO RT-BID 11/18/16 07/31/19 Pressair] Albuterol Inhaler (Mhu) [Ventolin 2 puff INHALATION RT-Q6H PRN 11/18/16 07/31/19 Hfa Inhaler (Mhu)] Fenofibrate [Lofibra] 160 mg PO HS 11/18/16 07/31/19 Gabapentin [Neurontin] 600 mg PO BID 11/18/16 07/31/19 LORazepam [Ativan] 0.5 mg PO BID PRN 11/18/16 07/31/19 Mometasone/Formoterol [Dulera 200 2 puff INHALATION RT-BID 11/18/16 07/31/19 Mcg/5 Mcg Inhaler] oxyCODONE HCL/ACETAMINOPHEN 1 tab PO BID PRN 11/18/16 07/31/19 [Percocet 10-325 mg] Atorvastatin [Lipitor] 80 mg PO HS 07/31/19 07/31/19 Ergocalciferol (Vitamin D2) 50,000 unit PO TH 07/31/19 07/31/19 [Drisdol] Gabapentin 800 mg PO HS 07/31/19 07/31/19 Lisinopril 20 mg PO HS 07/31/19 07/31/19 Morphine Sulfate [Morphine Sulfate 15 mg PO BID PRN 07/31/19 07/31/19 ER] Verapamil HCl [Verapamil ER] 120 mg PO DAILY 07/31/19 07/31/19 Allergies Allergy/AdvReac Type Severity Reaction Status Date / Time ketorolac tromethamine AdvReac Unknown Verified 02/21/20 02:07 [From Toradol] tincture of benzoin Allergy Rash/Hives Uncoded 02/21/20 02:07 Review of Systems ROS Statement: Those systems with pertinent positive or pertinent negative responses have been documented in the HPI. ROS Other: All systems not noted in ROS Statement are negative. EKG Findings - EKG Comments: EKG Findings:: EKG shows sinus rhythm 65 MD 142 QRS 84 QTc 405 Past Medical History Past Medical History: COPD, Hyperlipidemia, Hypertension Additional Past Medical History / Comment(s): back pain, degenerative disc disease, herniated disc., carpel tunnel History of Any Multi-Drug Resistant Organisms: None Reported Past Surgical History: Section Additional Past Surgical History / Comment(s): exploritory surgery last december to check ovaries related to increased pain Past Anesthesia/Blood Transfusion Reactions: No Reported Reaction Past Psychological History: Anxiety, Depression Smoking Status: Current every day smoker Past Alcohol Use History: None Reported Past Drug Use History: None Reported - Past Family History Father Family Medical History: Coronary Artery Disease (CAD), Hypertension, Myocardial Infarction ([place]) Mother Family Medical History: Congestive Heart Failure (CHF), Diabetes Mellitus, Hypertension Sister(s) Family Medical History: CVA/TIA, Myocardial Infarction ([place]) Additional Family Medical History / Comment(s): passed from massive brain bleed Brother(s) Family Medical History: Myocardial Infarction ([place]) Daughter(s) Family Medical History: No Reported History Son(s) Family Medical History: No Reported History General Exam - General Exam Comments Initial Comments: Neck tenderness to exam Limitations: no limitations General appearance: alert, in no apparent distress Head exam: Present: atraumatic, normocephalic, normal inspection Eye exam: Present: normal appearance, PERRL, EOMI. Absent: scleral icterus, conjunctival injection, periorbital swelling ENT exam: Present: normal exam, mucous membranes moist Neck exam: Present: normal inspection. Absent: tenderness, meningismus, lymphadenopathy Respiratory exam: Present: normal lung sounds bilaterally. Absent: respiratory distress, wheezes, rales, rhonchi, stridor Cardiovascular Exam: Present: regular rate, normal rhythm, normal heart sounds. Absent: systolic murmur, diastolic murmur, rubs, gallop, clicks GI/Abdominal exam: Present: soft, normal bowel sounds. Absent: distended, tenderness, guarding, rebound, rigid Extremities exam: Present: normal inspection, full ROM, normal capillary refill. Absent: tenderness, pedal edema, joint swelling, calf tenderness Back exam: Present: normal inspection Neurological exam: Present: alert, oriented X3, CN II-XII intact Psychiatric exam: Present: normal affect, normal mood Skin exam: Present: warm, dry, intact, normal color. Absent: rash Course Vital Signs 02/21/20 02:02 Temperature 98 F Pulse Rate 77 Respiratory 18 Rate Blood Pressure 154/100 O2 Sat by Pulse 98 Oximetry - Reevaluation(s) Reevaluation #1: 02/21/20 05:24 Medical records reviewed Reevaluation #2: 02/21/20 05:24 Patient does have adequate pain control currently comfortable for discharge Chest Pain MDM - [facility] 52 female [place] with acute on chronic chest pain and neck pain. No findings here in the ER, chest x-ray is negative labwork is normal EKG is negative patient can be discharged home Disposition Clinical Impression: Chest pain Disposition: HOME SELF-CARE Condition: Good Instructions (If sedation given, give patient instructions): Chest Pain (ED) Is patient prescribed a controlled substance at d/c from ED?: No Referrals: Adrián Richard MD [Primary Care Provider] - 1-2 days
[2020-02-21] MEDS ORDERED: SODIUM CHLORIDE 0.9% 1,000 ML IV STA (02:27)
[2020-02-21] MEDS ORDERED: MORPHINE SULFATE 4 MG/ML SYRINGE IVP STA (02:38)
[2020-02-21 02:52] LABS: Basophils % (A) 0 %; Eosinophils # (A) 0.1 k/uL (0-0.7); Eosinophils % (A) 1 %; HCT 42.2 % (34.0-46.0); HGB 13.9 gm/dL (11.4-16.0); Lymphocytes # (A) 4.5 k/uL (1.0-4.8); Lymphocytes % (A) 33 %; MCH 30.7 pg (25.0-35.0); MCV 93.1 fL (80.0-100.0); Mean Platelet Volume 7.8; Monocytes # (A) 0.6 k/uL (0-1.0); Monocytes % (A) 5 %; Neutrophils # (A) 8.3 k/uL (1.3-7.7); Neutrophils % (A) 60 %; Platelet Count 305 k/uL (150-450); RBC 4.53 m/uL (3.80-5.40); WBC 13.7 k/uL (3.8-10.6)
--- NOTE | 2020-02-21 03:04 | XR ---
EXAMINATION TYPE: XR chest 2V DATE OF EXAM: 02/21/2020 COMPARISON: 07/31/2019 HISTORY: Chest pain TECHNIQUE: FINDINGS: Heart and mediastinum are normal. Lungs are clear. Diaphragm is normal. Bony thorax is intact. Pulmon moose vascularity is normal. There are chest leads. IMPRESSION: Normal chest. No change.
[2020-02-21 03:28] LABS: D-Dimer 0.23 mg/L FEU (<0.60); INR 0.9 (<1.2); Prothrombin Time 9.5 sec (9.0-12.0)
[2020-02-21 03:33] LABS: ALT 32 U/L (4-34); AST 20 U/L (14-36); African American GFR (CKD) >90 (>60 ml/min/1.73 sqM); Albumin 3.8 g/dL (3.5-5.0); Alkaline Phosphatase 61 U/L (38-126); Anion Gap 7 mmol/L; Blood Urea Nitrogen 14 mg/dL (7-17); Calcium 8.9 mg/dL (8.4-10.2); Carbon Dioxide 25 mmol/L (22-30); Chloride 105 mmol/L (98-107); Glucose 106 mg/dL (74-99); Magnesium 1.9 mg/dL (1.6-2.3); Non-African American GFR(CKD) 88 (>60 ml/min/1.73 sqM); Potassium 3.9 mmol/L (3.5-5.1); Sodium 137 mmol/L (137-145); Total Bilirubin 0.3 mg/dL (0.2-1.3); Total Protein 6.4 g/dL (6.3-8.2)
[2020-02-21] MEDS ORDERED: HYDROmorphone 1 MG/ML 1 ML SYRINGE IVP STA (05:11)
== END 2020-02-21 05:33 | disposition home or self-care (01) ==
LOC: EC 01:54
DX: R07.9 Chest pain, unspecified (principal); M54.2 Cervicalgia; J44.9 Chronic obstructive pulmonary disease, unspecified; E78.5 Hyperlipidemia, unspecified; I10 Essential (primary) hypertension; F32.9 Major depressive disorder, single episode, unspecified; F41.9 Anxiety disorder, unspecified; F17.200 Nicotine dependence, unspecified, uncomplicated; Z79.899 Other long term (current) drug therapy; Z88.6 Allergy status to analgesic agent; Z88.8 Allergy status to other drugs, medicaments and biological substances; Z82.49 Family history of ischemic heart disease and other diseases of the circulatory system
CPT/HCPCS: 36415; 93005; 85379; 83880; 80053; 83690; 83735; 84484; 85025; 85610; 85730; 71046; 99285; 96374; 96375; 96361 ×2; J2270; J1170

== ENCOUNTER 2020-04-24 00:58 | Emergency (ER) | payer OTHER ==
[2020-04-24] MEDS ORDERED: HYDROmorphone 1 MG/ML 1 ML SYRINGE IM STA (02:07)
--- NOTE | 2020-04-24 02:07 | ED ---
Back Pain HPI - General Chief Complaint: Back Pain/Injury Stated Complaint: Fall, back pain Source: patient, family Limitations: no limitations - History of Present Illness Initial Comments: Pamella is a 54-year-old female with a history of chronic back pain for which she follows with Dr. Dubois. Patient underwent epidural injections on of last week, she states that today she had a fall in which she fell backward striking her lumbar spine. She reports since that time her pain is worsened. She denies any weakness in lower extremities any numbness, she walks with a cane at baseline and is able to continue to do so. She's had no bowel or bladder incontinence. - Related Data Home Medications Medication Instructions Recorded Confirmed Aclidinium [place] [Tudorza 1 puff PO RT-BID 11/18/16 07/31/19 Pressair] Albuterol Inhaler (Mhu) [Ventolin 2 puff INHALATION RT-Q6H PRN 11/18/16 07/31/19 Hfa Inhaler (Mhu)] Fenofibrate [Lofibra] 160 mg PO HS 11/18/16 07/31/19 Gabapentin [Neurontin] 600 mg PO BID 11/18/16 07/31/19 LORazepam [Ativan] 0.5 mg PO BID PRN 11/18/16 07/31/19 Mometasone/Formoterol [Dulera 200 2 puff INHALATION RT-BID 11/18/16 07/31/19 Mcg-5 Mcg Inhaler] oxyCODONE HCL/ACETAMINOPHEN 1 tab PO BID PRN 11/18/16 07/31/19 [Percocet 10-325 mg] Atorvastatin [Lipitor] 80 mg PO HS 07/31/19 07/31/19 Ergocalciferol (Vitamin D2) 50,000 unit PO TH 07/31/19 07/31/19 [Drisdol] Gabapentin 800 mg PO HS 07/31/19 07/31/19 Morphine Sulfate [Morphine Sulfate 15 mg PO BID PRN 07/31/19 07/31/19 ER] Verapamil HCl [Verapamil ER] 120 mg PO DAILY 07/31/19 07/31/19 lisinopriL 20 mg PO HS 07/31/19 07/31/19 Allergies Allergy/AdvReac Type Severity Reaction Status Date / Time ketorolac tromethamine AdvReac Unknown Verified 04/24/20 01:19 [From Toradol] tincture of benzoin Allergy Rash/Hives Uncoded 04/24/20 01:19 Review of Systems ROS Statement: Those systems with pertinent positive or pertinent negative responses have been documented in the HPI. ROS Other: All systems not noted in ROS Statement are negative. Past Medical History Past Medical History: COPD, Hyperlipidemia, Hypertension Additional Past Medical History / Comment(s): back pain, degenerative disc disease, herniated disc., carpel tunnel History of Any Multi-Drug Resistant Organisms: None Reported Past Surgical History: Section Additional Past Surgical History / Comment(s): exploritory surgery last december to check ovaries related to increased pain Past Anesthesia/Blood Transfusion Reactions: No Reported Reaction Past Psychological History: Anxiety, Depression Smoking Status: Current every day smoker Past Alcohol Use History: None Reported Past Drug Use History: None Reported - Past Family History Father Family Medical History: Coronary Artery Disease (CAD), Hypertension, Myocardial Infarction ([place]) Mother Family Medical History: Congestive Heart Failure (CHF), Diabetes Mellitus, Hypertension Sister(s) Family Medical History: CVA/TIA, Myocardial Infarction ([place]) Additional Family Medical History / Comment(s): passed from massive brain bleed Brother(s) Family Medical History: Myocardial Infarction ([place]) Daughter(s) Family Medical History: No Reported History Son(s) Family Medical History: No Reported History General Exam - General Exam Comments Initial Comments: Physical Exam GENERAL: Patient is well-developed and well-nourished. Patient is nontoxic and well-hydrated and is in no distress. HENT: Normocephalic, Atraumatic. EYES: PERRL, EOMI PULMONARY: Unlabored respirations. CARDIOVASCULAR: RRR Warm and well perfused extremities ABDOMEN: Non-distended SKIN: No rashes or bruising : Deferred NEUROLOGIC: Alert and oriented Normal speech MUSCULOSKELETAL: tenderness to palpation of lumbar spine and paraspinal muscles No deformity or step offs Small contusion approximately 1cm in diameter to the right of midline PSYCHIATRIC: No SI/HI Limitations: no limitations Course Vital Signs 04/24/20 01:14 Temperature 98.1 F Pulse Rate 94 Respiratory 18 Rate Blood Pressure 155/84 O2 Sat by Pulse 99 Oximetry Medical Decision Making - Medical Decision Making The patient was seen and evaluated history is obtained from the patient Patient had a mechanical fall and is complaining of worsening low back pain x- rays were obtained and revealed no acute findings Patient received IM Dilaudid for pain management upon reevaluation reports pain is improved at this time she is comfortable with the plan for discharge home 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 Disposition Clinical Impression: Mechanical back pain Disposition: HOME SELF-CARE Condition: Stable Instructions (If sedation given, give patient instructions): Acute Low Back Pain (ED) Additional Instructions: As we discussed her x-rays today have some degenerative changes but no acute findings C need to follow with your pain management doctor for her chronic back pain Return to the ER if he develop any worsening pain, any numbness or weakness in the legs or any new or concerning symptoms Is patient prescribed a controlled substance at d/c from ED?: No Referrals: Mike Jean MD [Primary Care Provider] - 1-2 days
--- NOTE | 2020-04-24 03:00 | XR ---
EXAMINATION TYPE: XR lumbar spine 2 or 3V DATE OF EXAM: 04/24/2020 COMPARISON: 02/28/2015 HISTORY: Back pain TECHNIQUE: 3 views FINDINGS: Lumbar vertebra have fairly normal alignment. There is slight levoscoliosis. There is minor spurring of the endplates. There is no significant disc space narrowing. There is no compression fra cture. Abdominal aorta is atheromatous. Sacroiliac joints appear intact. IMPRESSION: Mild degenerative disc hypertrophic changes. No fracture. No change compared to old exam.
[2020-04-24 04:44] VITALS: BP 151/90; PULSE 73; RESP 19; TEMP 98
== END 2020-04-24 04:44 | disposition home or self-care (01) ==
LOC: EC 00:58
DX: M54.5 Low back pain (principal); I10 Essential (primary) hypertension; J44.9 Chronic obstructive pulmonary disease, unspecified; E78.5 Hyperlipidemia, unspecified; F41.9 Anxiety disorder, unspecified; F17.200 Nicotine dependence, unspecified, uncomplicated; Z79.899 Other long term (current) drug therapy; Z79.51 Long term (current) use of inhaled steroids; Z88.8 Allergy status to other drugs, medicaments and biological substances; Z88.6 Allergy status to analgesic agent; W01.10XA Fall on same level from slipping, tripping and stumbling with subsequent striking against unspecified object, initial encounter
CPT/HCPCS: 72100; 99283; 96372; J1170

== ENCOUNTER → 2020-09-07 | Outpatient (CLI) | payer OTHER ==
--- NOTE | 2020-09-07 16:11 | CONS ---
CONSULTATION DATE OF SERVICE: 09/07/2020 This 54-year-old lady had been evaluated in the sleep center for possible obstructive sleep apnea-hypopnea syndrome. HISTORY OF PRESENT ILLNESS/SLEEP-WAKE EVALUATION: Patient usual sleep schedule from 10 p.m. to 6 a.m. Sometimes she has problems with falling asleep, possibly secondary to pain. She stops breathing during the sleep, may wake up with gasping for air, especially when she is on the back position. She snores and has up to 3 episodes of nocturia during the sleep. During the night she also wakes up every 1-2 hours according to her. She sleeps on the back and side position. Has TV set in bedroom. During the day, patient feels significant sleepiness. Takes naps several times a day. May see vivid dreams during naps. During the sleep, she multiple times changed her position in bed. [place] Sleepiness Scale is 10. PAST MEDICAL HISTORY: Positive for COPD, hypertension, hyperlipidemia, fibromyalgia, headaches. PAST SURGICAL HISTORY: , exploratory surgery for ovary. MEDICATIONS: Lisinopril 20 mg once a day, Lipitor 80 mg once a day, Fenofibrate 160 mg once a day, Lasix 40 mg once a day, Neurontin 600 mg up to 3 times a day, MS Contin 30 mg twice a day, Percocet 10-325 twice a day, Ambien 10 mg at bedtime as needed, Abilify 30 mg once a day, SR 160 mg once a day, albuterol inhaler 2 puffs twice a day, Flovent inhaler 2 puffs 3 times a day, inhaler 2 puffs twice a day, nebulizer. SOCIAL HISTORY: Positive for smoking for about 34 pack years, presently decrease amount of cigarettes to 4 cigarettes a day. Alcohol consumption none. FAMILY HISTORY: Positive for heart problems, snoring, diabetes, acid reflux. REVIEW OF SYSTEMS: Multiple awakenings from sleep, sleepiness during the day, snoring, awakenings with gasping for air. PHYSICAL EXAMINATION: GENERAL: lady without distress. VITAL SIGNS: BP 123/76, HR 70, RR 15, height 5 feet 6-1/2 inches, weight 217 pounds, BMI 34.4, temperature 98.0, oxygen saturation at room air 97%. HEENT: PERRLA, EOMI. Oropharynx extremely low position of soft palate. Mallampati 4. NECK: Is wide 16 inches in circumference. LUNGS: Clear to percussion and to auscultation. Good air exchange. No wheezing or rhonchi. HEART: S1, S2 regular. No murmurs, gallops, or rubs. ABDOMEN: Obese. EXTREMITIES: No clubbing or cyanosis. ABSORPTION AND ADSORPTION ENGINEER: Awake, alert, and oriented X3. Cranial nerves 2 to 7 intact. There is no fasciculation or atrophy. noted. No focal deficits observed. IMPRESSION: 1. Snoring, awakenings from sleep, gasping for air, and choking, extremely low position of soft, Mallampati 4, wide neck 16 inches in circumference, sleepiness. [place] Sleepiness Scale 10. Obstructive sleep apnea-hypopnea syndrome. 2. Obesity, body mass index 34.4. 3. Chronic obstructive pulmonary disease. 4. Hypertension. 5. Hyperlipidemia. 6. History of fibromyalgia. 7. Headaches. 8. Status post . 9. Status post exploratory surgery for the ovary. PLAN: 1. Polysomnography for evaluation of patient's breathing during sleep. 2. CPAP/BiPAP titration if sleep study confirms obstructive sleep apnea-hypopnea syndrome. 3. Preferable position during sleep on the side. 4. No driving if patient feels any sleepiness. 5. I will see patient for follow up visit to explain results of testing and following plan. Thank you very much for referring this patient for consultation. Sincerely, Soto Torre MD, PhD, FAASM Diplomat of [place] [employer] [place] [employer] [facility] [place] MMODL / IJN: [id number] /
== END | disposition home or self-care (01) ==
CPT/HCPCS: 99211

== ENCOUNTER 2021-06-23 00:58 | Emergency (ER) | payer OTHER ==
[2021-06-23] MEDS ORDERED: HYDROmorphone 1 MG/ML 1 ML SYRINGE IVP STA ×2 (01:45→03:56)
[2021-06-23] MEDS ORDERED: ONDANSETRON 4 MG/2 ML VIAL IVP STA (01:45)
[2021-06-23] MEDS ORDERED: SODIUM CHLORIDE 0.9% 1,000 ML IV ONE (01:46)
[2021-06-23 02:33] LABS: Appearance,Urine Clear (Clear); Bilirubin,Urine Negative (Negative); Blood,Urine Small (Negative); Color,Urine Light Yellow; Glucose,Urine (UA) Negative (Negative); Ketones,Urine Negative (Negative); Leukocyte Esterase,Urine Negative (Negative); Mucus,Urine Rare /hpf; Nitrite,Urine Negative (Negative); PH, Urine 5.5 (5.0-8.0); Protein,Urine Negative (Negative); RBC,Urine 1 /hpf (0-5); Specific Gravity,Urine 1.006 (1.001-1.035); Squamous Epithelial Cell,Urine 2 /hpf (0-4); Urobilinogen,Urine <2.0 mg/dL (<2.0); WBC,Urine 1 /hpf (0-5)
[2021-06-23 02:34] LABS: Basophils # (A) 0.1 k/uL (0-0.2); Basophils % (A) 1 %; Eosinophils # (A) 0.4 k/uL (0-0.7); Eosinophils % (A) 3 %; HCT 43.2 % (34.0-46.0); HGB 14.7 gm/dL (11.4-16.0); Lymphocytes # (A) 3.9 k/uL (1.0-4.8); Lymphocytes % (A) 33 %; MCH 31.2 pg (25.0-35.0); MCHC 34.1 g/dL (31.0-37.0); MCV 91.7 fL (80.0-100.0); Mean Platelet Volume 8.5; Monocytes # (A) 0.7 k/uL (0-1.0); Monocytes % (A) 6 %; Neutrophils # (A) 6.7 k/uL (1.3-7.7); Neutrophils % (A) 56 %; Platelet Count 350 k/uL (150-450); RBC 4.71 m/uL (3.80-5.40); RDW 13.2 % (11.5-15.5); WBC 11.8 k/uL (3.8-10.6)
--- NOTE | 2021-06-23 02:41 | CT ---
EXAMINATION TYPE: CT soft tissue neck w con DATE OF EXAM: 06/23/2021 COMPARISON: None HISTORY: Nodules on thyroid CT DLP: 343.80 mGycm Automated exposure control for dose reduction was used. CONTRAST: Performed with IV Contrast, patient injected with 100 mL of Isovue 300. Images obtained from the level of the aortic arch to the top of the frontal sinuses with IV contrast. There is normal branching pattern of the great vessels on the aortic arch. There is arterial flow in the great vessels. Thyroid gland is symmetric. There are small rounded hypodensities in both thyroid lobes measuring up to 1 cm and consistent with multinodular goiter. There is no dominant thyroid mass . There is normal contrast opacification of the carotid arteries and jugular veins. There is arterial f low in the vertebral arteries. The epiglottis is normal. Tongue appears normal. Prevertebral soft tissues appear normal. Tonsils and adenoids appear normal. Subglottic trachea appears normal. There is no evidence of pharyngeal mass. Submandibular salivary glands are symmetric. Parotid glands are symmetric. There are a few bilateral parotid lymph nodes that measure up to 6 mm. There is fairly normal aeration of the paranasal sinuses. Orbital margins are intact. There is no muna dence of retro-orbital mass. I see no bony destructive process. The maxilla is intact. The cervical v ertebra have normal alignment. There is no compression fracture. There is mild degenerative spurring in the mid and lower cervical spine. There are bilateral anterior triangle cervical lymph nodes that measure up to 11 mm. IMPRESSION: Small rounded hypodensities in the thyroid suggestive of nodular goiter. No dominant thyroid mass hernandez ntified. There are bilateral anterior cervical lymph nodes likely inflammatory.
--- NOTE | 2021-06-23 03:10 | ED ---
Back Pain HPI - General Chief Complaint: Back Pain/Injury Stated Complaint: Back Pain Time Seen by Provider: 06/23/21 01:00 Source: patient, EMS Limitations: physical limitation - History of Present Illness Initial Comments: 55 year-old female patient presents to the emergency department for evaluation of enlarged lymph nodes in her neck, sore throat, and pain across the back of her head. States that these symptoms have been going on for the last six months. She did have ultrasound of her thyroid which showed nodules. She had ENT evaluation of her throat and was told she had polyps on her vocal cords. She states that she has chronic neck and back pain but these symptoms are worse. She reports "deep bone pain" and muscular pain. She is very scared she has lymphoma. States she has all the symptoms listed online and her physician will not listen to her. She denies any fever or chills. Denies hemoptysis. States she does take MS contin and percocet at home for chronic pain. Patient denies any recent rash, cough, shortness of breath, chest pain, diarrhea, constipation, back pain, numbness, tingling, dizziness, weakness, hematuria, dysuria, urinary urgency, urinary frequency, headache, visual changes, or any other complaints. - Related Data Home Medications Medication Instructions Recorded Confirmed Aclidinium [place] [Tudorza 1 puff PO RT-BID 11/18/16 07/31/19 Pressair] Albuterol Inhaler (Mhu) [Ventolin 2 puff INHALATION RT-Q6H PRN 11/18/16 07/31/19 Hfa Inhaler (Mhu)] Fenofibrate [Lofibra] 160 mg PO HS 11/18/16 07/31/19 Gabapentin [Neurontin] 600 mg PO BID 11/18/16 07/31/19 LORazepam [Ativan] 0.5 mg PO BID PRN 11/18/16 07/31/19 Mometasone/Formoterol [Dulera 200 2 puff INHALATION RT-BID 11/18/16 07/31/19 Mcg-5 Mcg Inhaler] oxyCODONE HCL/ACETAMINOPHEN 1 tab PO BID PRN 11/18/16 07/31/19 [Percocet 10-325 mg] Atorvastatin [Lipitor] 80 mg PO HS 07/31/19 07/31/19 Ergocalciferol (Vitamin D2) 50,000 unit PO TH 07/31/19 07/31/19 [Drisdol (50,000 Iu)] Gabapentin 800 mg PO HS 07/31/19 07/31/19 Morphine Sulfate [Morphine Sulfate 15 mg PO BID PRN 07/31/19 07/31/19 ER] Verapamil HCl [Verapamil ER] 120 mg PO DAILY 07/31/19 07/31/19 lisinopriL 20 mg PO HS 07/31/19 07/31/19 Previous Rx's Medication Instructions Recorded Amoxic-Pot Clav 875-125Mg 1 tab PO Q12HR #20 tablet 06/23/21 [Augmentin 875-125] Allergies Allergy/AdvReac Type Severity Reaction Status Date / Time ketorolac tromethamine AdvReac Unknown Verified 06/23/21 01:19 [From Toradol] tincture of benzoin Allergy Rash/Hives Uncoded 06/23/21 01:19 Review of Systems ROS Statement: Those systems with pertinent positive or pertinent negative responses have been documented in the HPI. ROS Other: All systems not noted in ROS Statement are negative. Past Medical History Past Medical History: COPD, Hyperlipidemia, Hypertension Additional Past Medical History / Comment(s): back pain, degenerative disc disease, herniated disc., carpel tunnel, polyps on vocal cords, nodules on thyroid History of Any Multi-Drug Resistant Organisms: None Reported Past Surgical History: Section Additional Past Surgical History / Comment(s): exploritory surgery last december to check ovaries related to increased pain Past Anesthesia/Blood Transfusion Reactions: No Reported Reaction Past Psychological History: Anxiety, Depression Smoking Status: Current every day smoker Past Alcohol Use History: None Reported Past Drug Use History: None Reported - Past Family History Father Family Medical History: Coronary Artery Disease (CAD), Hypertension, Myocardial Infarction ([place]) Mother Family Medical History: Congestive Heart Failure (CHF), Diabetes Mellitus, Hypertension Sister(s) Family Medical History: CVA/TIA, Myocardial Infarction ([place]) Additional Family Medical History / Comment(s): passed from massive brain bleed Brother(s) Family Medical History: Myocardial Infarction ([place]) Daughter(s) Family Medical History: No Reported History Son(s) Family Medical History: No Reported History General Exam Limitations: physical limitation General appearance: alert, in no apparent distress, other (This is a well-dev eloped, well-nourished adult female patient in no acute distress. Vital signs upon presentation are temperature 99.1F, pulse 82, respirations 20, blood pressure 115/84, pulse ox 96% on room air.) Eye exam: Present: normal appearance, PERRL, EOMI. Absent: scleral icterus, conjunctival injection, periorbital swelling ENT exam: Present: normal exam, normal oropharynx, mucous membranes moist Neck exam: Present: normal inspection, lymphadenopathy (Mild anterior cervical). Absent: tenderness, meningismus Respiratory exam: Present: normal lung sounds bilaterally. Absent: respiratory distress, wheezes, rales, rhonchi, stridor Cardiovascular Exam: Present: regular rate, normal rhythm, normal heart sounds. Absent: systolic murmur, diastolic murmur, rubs, gallop, clicks GI/Abdominal exam: Present: soft, normal bowel sounds. Absent: distended, tenderness, guarding, rebound, rigid Neurological exam: Present: alert, oriented X3, CN II-XII intact Psychiatric exam: Present: normal affect, normal mood Skin exam: Present: warm, dry, intact, normal color. Absent: rash Course Vital Signs 06/23/21 06/23/21 01:10 03:18 Temperature 99.1 F Pulse Rate 82 72 Respiratory 20 18 Rate Blood Pressure 115/84 119/64 O2 Sat by Pulse 96 100 Oximetry Medical Decision Making - Medical Decision Making 55-year-old female patient presents to the emergency department today for evaluation of swollen lymph nodes in her neck, pain in the back of her head, and sore throat has been going on for the last 6 months. Physical examination did reveal mild anterior cervical lymphadenopathy. She is afebrile with normal vital signs. Labs reviewed and revealed mild elevated white blood cell count at 11.8. There is no pharyngeal erythema. Soft tissue neck CT was done and showed mild anterior cervical lymphadenopathy. Radiologist believes this is inflammatory. I did discuss findings and results with her. She'll be started on Augmentin. If symptoms are not improved after the medications she is instructed to follow-up with her primary care physician for recheck. Return parameters discussed in detail. She verbalizes understanding and agrees with this plan. Case discussed with my attending Dr. Calderón. - Lab Data Result diagrams: 06/23/21 02:19 06/23/21 02:19 Lab Results 06/23/21 06/23/21 06/23/21 Range/Units 02:19 02:19 02:19 WBC 11.8 H (3.8-10.6) k/uL RBC 4.71 (3.80-5.40) m/uL Hgb 14.7 (11.4-16.0) gm/dL Hct 43.2 (34.0-46.0) % MCV 91.7 (80.0-100.0) fL MCH 31.2 (25.0-35.0) pg MCHC 34.1 (31.0-37.0) g/dL RDW 13.2 (11.5-15.5) % Plt Count 350 (150-450) k/uL MPV 8.5 Neutrophils % 56 % Lymphocytes % 33 % Monocytes % 6 % Eosinophils % 3 % Basophils % 1 % Neutrophils # 6.7 (1.3-7.7) k/uL Lymphocytes # 3.9 (1.0-4.8) k/uL Monocytes # 0.7 (0-1.0) k/uL Eosinophils # 0.4 (0-0.7) k/uL Basophils # 0.1 (0-0.2) k/uL Sodium 135 L (137-145) mmol/L Potassium 5.0 (3.5-5.1) mmol/L Chloride 105 (98-107) mmol/L Carbon Dioxide 21 L (22-30) mmol/L Anion Gap 9 mmol/L BUN 10 (7-17) mg/dL Creatinine 0.69 (0.52-1.04) mg/dL Est GFR (CKD-EPI)AfAm >90 (>60 ml/min/1.73 sqM) Est GFR (CKD-EPI)NonAf >90 (>60 ml/min/1.73 sqM) Glucose 118 H (74-99) mg/dL Calcium 9.5 (8.4-10.2) mg/dL Total Bilirubin 0.6 (0.2-1.3) mg/dL AST 29 (14-36) U/L ALT 18 (4-34) U/L Alkaline Phosphatase 108 (38-126) U/L Total Protein 7.8 (6.3-8.2) g/dL Albumin 4.5 (3.5-5.0) g/dL Urine Color Light Yellow Urine Appearance Clear (Clear) Urine pH 5.5 (5.0-8.0) Ur Specific [place] 1.006 (1.001-1.035) Urine Protein Negative (Negative) Urine Glucose (UA) Negative (Negative) Urine Ketones Negative (Negative) Urine Blood Small H (Negative) Urine Nitrite Negative (Negative) Urine Bilirubin Negative (Negative) Urine Urobilinogen <2.0 (<2.0) mg/dL Ur Leukocyte Esterase Negative (Negative) Urine RBC 1 (0-5) /hpf Urine WBC 1 (0-5) /hpf Ur Squamous Epith Cells 2 (0-4) /hpf Urine Mucus Rare H (None) /hpf Disposition Clinical Impression: Lymphadenopathy, Sore throat Disposition: HOME SELF-CARE Condition: Good Instructions (If sedation given, give patient instructions): Lymphadenopathy (ED) Additional Instructions: Follow-up with your primary care physician for further evaluation as soon as possible. Follow-up with her ENT physician. Return for any new, worsening, or concerning symptoms. Prescriptions: Amoxic-Pot Clav 875-125Mg [Augmentin 875-125] 1 tab PO Q12HR #20 tablet Is patient prescribed a controlled substance at d/c from ED?: No Referrals: Mike Jean MD [Primary Care Provider] - 1-2 days Time of Disposition: 03:47
[2021-06-23 03:11] LABS: ALT 18 U/L (4-34); African American GFR (CKD) >90 (>60 ml/min/1.73 sqM); Anion Gap 9 mmol/L; Blood Urea Nitrogen 10 mg/dL (7-17); Calcium 9.5 mg/dL (8.4-10.2); Carbon Dioxide 21 mmol/L (22-30); Chloride 105 mmol/L (98-107); Glucose 118 mg/dL (74-99); Non-African American GFR(CKD) >90 (>60 ml/min/1.73 sqM); Sodium 135 mmol/L (137-145); Total Bilirubin 0.6 mg/dL (0.2-1.3)
[2021-06-23 03:14] LABS: AST 29 U/L (14-36); Albumin 4.5 g/dL (3.5-5.0); Alkaline Phosphatase 108 U/L (38-126); Total Protein 7.8 g/dL (6.3-8.2)
[2021-06-23] MEDS ORDERED: AMOXIC-POT CLAV 875MG STARTER PACK 2 TAB BTL PO STA (03:47)
[2021-06-23 03:54] VITALS: RESP 18
[2021-06-23 04:12] VITALS: BP 140/61; PULSE 67; TEMP 98.5
== END 2021-06-23 04:15 | disposition home or self-care (01) ==
LOC: EC 00:58
DX: J02.9 Acute pharyngitis, unspecified (principal); R59.0 Localized enlarged lymph nodes; J44.9 Chronic obstructive pulmonary disease, unspecified; E78.5 Hyperlipidemia, unspecified; I10 Essential (primary) hypertension; F41.9 Anxiety disorder, unspecified; F32.9 Major depressive disorder, single episode, unspecified; F17.200 Nicotine dependence, unspecified, uncomplicated; G89.29 Other chronic pain; Z88.1 Allergy status to other antibiotic agents
CPT/HCPCS: 99284; 96374; 96375; 96376; 96361; 36415; 80053; 85025; 81001; 70491; J2405; J1170; Q9967

== ENCOUNTER → 2021-10-15 | Outpatient (CLI) | payer OTHER ==
--- NOTE | 2021-10-15 13:44 | CT ---
EXAMINATION TYPE: CT soft tissue neck w con DATE OF EXAM: 10/15/2021 12:08 PM COMPARISON: CT dated 06/06/2021 HISTORY: Fatigue, night sweats, sinus drainage, bone pain, stomach problems, headache. CT DLP: 612.5 mGycm Automated exposure control for dose reduction was used. CONTRAST: CT scan of the neck is performed following with IV Contrast, patient injected with 100 mL of Isovue M 300. Axial images are obtained, coronal and sagittal reformatted images are reviewed. FINDINGS: The soft palate was contracted and positioned superiorly inseparable from the nasopharyngeal soft tis martha at the time of the scan. Otherwise unremarkable nasopharynx, oropharynx, hypopharynx, larynx, tra zach and visualized portion of the esophagus. Prominent thyroid gland with heterogeneous texture and tiny hypodensity within, please correlate with thyroid ultrasound results. Scattered subcentimeter nodules within the parotid glands, stable compared to the previous CT scan an d could represent prominent parotid lymph nodes. Symmetrical unremarkable submandibular salivary glan ds. No gross base of the tongue abnormality. Prominent bilateral cervical and submandibular lymph nod es, all subcentimeter in size without interval progression, nonspecific. 9 mm right supraclavicular lymph node, also stable. Solitary millimetric submental lymph node is also stable. Separate origin of the left vertebral artery arising directly from the aortic arch. Scattere d arterial atherosclerotic calcifications. Patent major neck vessels. CT scan of the chest is dictate d separately. Degenerative changes at C4-5, C5-6 and C6-7 levels. No aggressive bone lesion. IMPRESSION: Prominent number of subcentimeter lymph nodes in the neck as detailed above, without progression comp ared to the previous CT scan. This includes suspected bilateral parotid and right supraclavicular lym ph nodes. No pathologically enlarged or necrotic lymph nodes seen in the neck. No other obvious neck mass or suspicious lesion. Incidental findings as described above.
--- NOTE | 2021-10-15 14:01 | CT ---
EXAMINATION TYPE: CT Chest Abd Pelvis w con DATE OF EXAM: 10/15/2021 COMPARISON: CT dated 05 April 2019 HISTORY: Fatigue, night sweats, sinus drainage, bone pain, stomach problems, headache. CT DLP: 2011.4 mGycm Automated exposure control for dose reduction was used. CONTRAST: Multiplanar CT scan of the chest, abdomen and pelvis is performed with Oral Contrast and with IV Cont rast, patient injected with 100 mL of Isovue M300. FINDINGS: Chest: Stable 2 mm nodule in the lateral aspect of the left lung base. Unremarkable lungs otherwise. Patent central airways. No pleural or pericardial effusion. No cardiomegaly. Scattered arterial atherosclero tic calcifications including coronary arterial calcifications. Scattered subcentimeter axillary, mediastinal and hilar lymph nodes, stable since 2019 CT scan. No pa thologically enlarged lymph nodes in the chest. Degenerative changes of the mid to lower thoracic spi ne. No aggressive bone lesion. Abdomen and pelvis: Motion artifacts. Questionable hepatic steatosis. No definite hepatic focal lesion identified. Unrema rkable gallbladder, spleen, pancreas, adrenals and kidneys. Scattered arterial atherosclerotic calcif ications. Grossly unremarkable urinary bladder. No gross uterine or adnexal mass. Unremarkable undistended stomach, duodenum and small bowel. Fecal loading of the colon. No gross colo eduardo mass. Normal appendix. Scattered subcentimeter bilateral inguinal lymph nodes. No pathologically enlarged abdominal or pelvic lymph nodes. No sizable ascites. Mild degenerative changes of the lumbar spine. No aggressive bone lesion. IMPRESSION: No definite suspicious lesion or pathologically enlarged lymph nodes in the chest, abdomen or the pel vis. Incidental findings as described above.
== END | disposition home or self-care (01) ==
LOC: RADCTMAIN 09:47
PROVIDERS: ATTEND Internal Medicine Hematology & Oncology
DX: R59.0 Localized enlarged lymph nodes (principal); R93.89 Abnormal findings on diagnostic imaging of other specified body structures
CPT/HCPCS: 70491; 71260; 74177; 36415; Q9967 ×2

== ENCOUNTER 2022-01-21 13:26 | Observation (INO) | payer OTHER ==
[2022-01-21 14:46] LABS: Basophils % (A) 1 %; Eosinophils # (A) 0.2 k/uL (0-0.7); Eosinophils % (A) 3 %; HCT 41.7 % (34.0-46.0); HGB 13.7 gm/dL (11.4-16.0); Lymphocytes # (A) 2.3 k/uL (1.0-4.8); Lymphocytes % (A) 36 %; MCH 30.8 pg (25.0-35.0); MCHC 32.9 g/dL (31.0-37.0); MCV 93.6 fL (80.0-100.0); Mean Platelet Volume 7.1; Monocytes # (A) 0.3 k/uL (0-1.0); Monocytes % (A) 5 %; Neutrophils # (A) 3.4 k/uL (1.3-7.7); Neutrophils % (A) 53 %; Platelet Count 310 k/uL (150-450); RBC 4.45 m/uL (3.80-5.40); RDW 13.1 % (11.5-15.5); WBC 6.4 k/uL (3.8-10.6)
[2022-01-21 14:50] LABS: INR 0.8 (<1.2); Prothrombin Time 9.5 sec (9.0-12.0)
[2022-01-21 14:51] LABS: ALT 22 U/L (4-34); AST 20 U/L (14-36); African American GFR (CKD) >90 (>60 ml/min/1.73 sqM); Alkaline Phosphatase 88 U/L (38-126); Anion Gap 5 mmol/L; Blood Urea Nitrogen 8 mg/dL (7-17); Calcium 9.1 mg/dL (8.4-10.2); Carbon Dioxide 29 mmol/L (22-30); Chloride 106 mmol/L (98-107); Glucose 139 mg/dL (74-99); Lipase 77 U/L (23-300); Magnesium 1.7 mg/dL (1.6-2.3); Non-African American GFR(CKD) >90 (>60 ml/min/1.73 sqM); Partial Thromboplastin Time 23.8 sec (22.0-30.0); Potassium 4.3 mmol/L (3.5-5.1); Sodium 140 mmol/L (137-145); Total Bilirubin 0.2 mg/dL (0.2-1.3); Total Protein 6.7 g/dL (6.3-8.2)
--- NOTE | 2022-01-21 14:58 | XR ---
EXAMINATION TYPE: XR chest 2V DATE OF EXAM: 01/21/2022 COMPARISON: Chest radiograph 02/21/2020 HISTORY: Chest pain TECHNIQUE: Frontal and lateral views of the chest are obtained. FINDINGS: There is no focal air space opacity, pleural effusion, or pneumothorax seen. The cardiac silhouette size is within normal limits. The osseous structures are intact. IMPRESSION: No acute cardiopulmonary process.
[2022-01-21] MEDS ORDERED: MORPHINE SULFATE 4 MG/ML SYRINGE IVP STA (15:02)
--- NOTE | 2022-01-21 15:02 | ED ---
Chest Pain HPI - General Chief Complaint: Chest Pain Stated Complaint: Chest pain/Neck pain Time Seen by Provider: 01/21/22 14:07 Source: patient Mode of arrival: wheelchair Limitations: no limitations - History of Present Illness Initial Comments: 56-year-old female with past medical history of chronic back pain, COPD presents emergency department with chest pain. Reports that it has been going on intermittently for the past 4 days and became constant starting yesterday. Described as a pain over the left side of her chest with radiation around to her back. She admits to associated shortness of breath and nausea. No vomiting. Denies previous history of cardiac disease. Does have a large family of cardiac disease. She is a smoker. Denies fevers, chills or cough. No abdominal pain. No ripping or tearing sensation to her back. Denies any numbness, tingling or weakness in her extremity. No lower external swelling. No history of DVT or PE. No other alleviating, precipitating or modifying factors - Related Data Home Medications Medication Instructions Recorded Confirmed Fenofibrate [Lofibra] 160 mg PO HS 11/18/16 01/21/22 oxyCODONE HCL/ACETAMINOPHEN 1 tab PO BID PRN 11/18/16 01/21/22 [Percocet 10-325 mg] Atorvastatin [Lipitor] 80 mg PO HS 07/31/19 01/21/22 Gabapentin 800 mg PO TID 07/31/19 01/21/22 Morphine Sulfate [Morphine Sulfate 15 mg PO BID PRN 07/31/19 01/21/22 ER] Albuterol Inhaler [Ventolin Hfa 2 puff INHALATION RT-QID PRN 11/29/21 01/21/22 Inhaler] Flovent (Unknown Strength) 2 puff INHALATION RT-BID 11/29/21 01/21/22 Glycopyrrolate/Formoterol Fum 1 puff INHALATION RT-DAILY 11/29/21 01/21/22 [Bevespi Aerosphere Inhaler] lisinopriL 40 mg PO DAILY 11/29/21 01/21/22 Morphine Sulfate ER [Ms Contin] 30 mg PO Q12HR 01/21/22 01/21/22 Allergies Allergy/AdvReac Type Severity Reaction Status Date / Time ketorolac tromethamine AdvReac Unknown Verified 01/21/22 15:15 [From Toradol] tincture of benzoin Allergy Rash/Hives Uncoded 01/21/22 13:48 Review of Systems ROS Statement: Those systems with pertinent positive or pertinent negative responses have been documented in the HPI. ROS Other: All systems not noted in ROS Statement are negative. EKG Findings - EKG Comments: EKG Findings:: EKG demonstrates sinus rhythm with a rate of 73. IA interval 154. QRS 85. QTC 404. No acute ST segment elevations or depressions Past Medical History Past Medical History: COPD, Hyperlipidemia, Hypertension Additional Past Medical History / Comment(s): back pain, degenerative disc disease, herniated disc., carpel tunnel, polyps on vocal cords, nodules on thyroid, chronic neck pain, chronic and recurrent headaches History of Any Multi-Drug Resistant Organisms: None Reported Past Surgical History: Section Additional Past Surgical History / Comment(s): exploritory surgery last december to check ovaries related to increased pain Past Anesthesia/Blood Transfusion Reactions: No Reported Reaction Past Psychological History: Anxiety, Depression Smoking Status: Current every day smoker Past Alcohol Use History: None Reported Past Drug Use History: None Reported - Past Family History Father Family Medical History: Coronary Artery Disease (CAD), Hypertension, Myocardial Infarction ([place]) Additional Family Medical History / Comment(s): Brain aneurysm in more than one family member Mother Family Medical History: Congestive Heart Failure (CHF), Diabetes Mellitus, Hypertension Sister(s) Family Medical History: CVA/TIA, Myocardial Infarction ([place]) Additional Family Medical History / Comment(s): passed from massive brain bleed Brother(s) Family Medical History: Myocardial Infarction ([place]) Daughter(s) Family Medical History: No Reported History Son(s) Family Medical History: No Reported History General Exam Limitations: no limitations General appearance: alert, in no apparent distress Head exam: Present: atraumatic, normocephalic, normal inspection Eye exam: Present: normal appearance, PERRL, EOMI. Absent: scleral icterus, conjunctival injection, periorbital swelling ENT exam: Present: normal exam, mucous membranes moist Neck exam: Present: normal inspection. Absent: tenderness, meningismus, lymphadenopathy Respiratory exam: Present: normal lung sounds bilaterally. Absent: respiratory distress, wheezes, rales, rhonchi, stridor Cardiovascular Exam: Present: regular rate, normal rhythm, normal heart sounds. Absent: systolic murmur, diastolic murmur, rubs, gallop, clicks GI/Abdominal exam: Present: soft, normal bowel sounds. Absent: distended, tenderness, guarding, rebound, rigid Extremities exam: Present: normal inspection, full ROM, normal capillary refill. Absent: tenderness, pedal edema, joint swelling, calf tenderness Back exam: Present: normal inspection Neurological exam: Present: alert, oriented X3, CN II-XII intact Psychiatric exam: Present: normal affect, normal mood Skin exam: Present: warm, dry, intact, normal color. Absent: rash Course Vital Signs 01/21/22 01/21/22 01/21/22 13:46 14:38 15:48 Temperature 98.3 F Pulse Rate 78 64 Respiratory 16 30 H 18 Rate Blood Pressure 133/74 144/81 O2 Sat by Pulse 99 97 Oximetry 01/21/22 01/21/22 01/21/22 18:00 19:00 19:33 Temperature Pulse Rate 70 60 54 L Respiratory 15 13 Rate Blood Pressure 139/91 135/80 O2 Sat by Pulse 98 96 Oximetry 01/21/22 01/21/22 19:38 23:18 Temperature Pulse Rate 59 L 69 Respiratory 17 Rate Blood Pressure 102/85 O2 Sat by Pulse 98 Oximetry Chest Pain MDM - MDM Upon arrival patient was placed into room 3. A thorough history and physical exam was performed. EKG was obtained. Patient placed on continuous pulse ox and cardiac monitoring. IV is established laboratory says her conducted. Patient does go for chest x-ray. She was given 4 of morphine for pain control and 4 aspirins. Laboratory studies are reviewed and demonstrated a negative troponin. Due to risk factors did recommend admission for cardiology consultation in order to trend her troponins. Patient did agree to this. Spoke with Dr. Bernard who agreed to admit the patient. Disposition Clinical Impression: Chest pain Disposition: ADMITTED IP TO THIS HOSP Condition: Stable Is patient prescribed a controlled substance at d/c from ED?: No Time of Disposition: 16:05 Decision to Admit Reason: Admit from EC Decision Date: 01/21/22 Decision Time: 16:05
[2022-01-21] MEDS ORDERED: ASPIRIN 81 MG PO STA (16:04)
[2022-01-21] MEDS ORDERED: NALOXONE 0.4 MG/ML 1 ML VIAL IV PRN (16:05)
[2022-01-21] MEDS ORDERED: NITROGLYCERIN SL TABS 0.4 MG TAB SUBLINGUAL PRN (16:06)
[2022-01-21] MEDS ORDERED: ACETAMINOPHEN TAB 325 MG TAB PO PRN (16:06)
[2022-01-21] MEDS ORDERED: ONDANSETRON 4 MG/2 ML VIAL IVP PRN (16:06)
[2022-01-21] MEDS ORDERED: NALOXONE 0.4 MG/ML 10 ML VIAL IVP PRN (16:06)
[2022-01-21] MEDS: HEPARIN SODIUM,PORCINE/PF 5,000 UNIT/0.5 ML SYRINGE SQ SCH (17:17)
[2022-01-21] MEDS ORDERED: MAG HYDROX/AL HYDROX/SIMETH 30 ML, HYOSCYAMINE ELIXIR 10 ML, LIDOCAINE VISCOUS 2% 10 ML PO ONE ×3 (17:28)
[2022-01-21] MEDS ORDERED: IPRATROPIUM-ALBUTEROL 3 ML NEB INHALATION PRN (17:30)
--- NOTE | 2022-01-21 17:33 | P.HPIM ---
History of Present Illness H&P Date: 01/21/22 History of Presenting Illness: Patient is a very pleasant 56-year-old female with a past medical history of hypertension, hyperlipidemia, COPD, anxiety, depression, nicotine dependence and chronic neck and back pain. She presented to the emergency department with a chief complaint of chest/neck pain. Patient states this pain is different from her chronic neck pain and reports pain to her midsternal chest as well as beneath her left breast and patient reports having difficulty explaining how this pain feels. She reports it began approximately 4 days ago and has been waxing and waning. She states this chest pain radiates into her back and then the back of her neck accompanied by a headache. Patient denies having any dizziness, lightheadedness, changes in vision or hearing, palpitations, shortness of breath, nausea, vomiting, or experiencing any numbness/tingling/w eakness in her extremities. In the emergency department, patient underwent full evaluation. EKG showing normal sinus rhythm at 73 bpm with no noted T wave or ST abnormality showing no signs of acute ischemia at this time. Chest x-ray negative for acute cardiopulmonary process. CBC, coags, and CMP were unremarkable. Troponin negative at less than 0.012. Patient given aspirin and to be admitted under our services with consult to cardiology. Review of systems: Pertinent positives and negatives as discussed in HPI, a complete review of systems was performed and all other systems are negative. Physical exam: Vital signs reviewed and stable. General: Nontoxic, no distress and appears stated age. Derm: Skin warm and dry, normal coloration for ethnicity. Head: Atraumatic, normocephalic and symmetric. Eyes: EOMs intact, no lid lag, and anicteric sclera Mouth: no lip lesions, mucus membranes moist Cardiovascular: regular rate and rhythm with normal S1S2, no murmur, positive posterior tibial pulses bilaterally, and cap refill < 2 seconds. Lungs: Respirations even, regular, and unlabored on room air. Lungs CTA bilaterally, no rhonchi, no rales, no wheezing, and no accessory muscle usage. Abdominal: soft, nontender to palpation, no guarding, no appreciable organomegaly Ext: ROM intact. No gross muscle atrophy, no edema, no contractures Neuro: Speech clear, face symmetrical and CN II-XII grossly intact with no noted focal neuro deficits Psych: Alert and oriented to person, place, time, and situation. Appropriate and pleasant affect. Assessment and Plan of Care: Chest pain, rule out acute coronary event -Cardiology consult, appreciate further recommendations -Telemetry monitoring -Trend troponins -Cardiac diet, NPO at midnight -Aspirin, atorvastatin, and lisinopril -Lipid profile with a.m. labs. -Echocardiogram Hypertension -Monitor vital signs and continue daily medication regimen of lisinopril. Hyperlipidemia -Continue daily medication regimen with fenofibrate and statin. COPD -Duonebs as needed for wheezing/shortness of breath and continue daily Flovent. Nicotine dependence -Continue to educate and encourage patient on the importance of smoking naren sation and the risks associated with continued use. The patient is admitted with an anticipated less than 2 midnight stay for evaluation of chest pain CODE STATUS: Full code DVT prophylaxis: Heparin Discussed with: Patient Anticipated discharge date: Tomorrow morning Anticipated discharge place: Home A total of 40 minutes was spent on the care of this complex patient more than 50% of the time was spent in counseling and care coordination. I reviewed the documentation as provided by the LEROY above, who is the original author of this note. I agree with the documented assessment and plan, with the following changes: none Past Medical History Past Medical History: COPD, Hyperlipidemia, Hypertension Additional Past Medical History / Comment(s): back pain, degenerative disc disease, herniated disc., carpel tunnel, polyps on vocal cords, nodules on thyroid, chronic neck pain, chronic and recurrent headaches History of Any Multi-Drug Resistant Organisms: None Reported Past Surgical History: Section Additional Past Surgical History / Comment(s): exploritory surgery last december to check ovaries related to increased pain Past Anesthesia/Blood Transfusion Reactions: No Reported Reaction Past Psychological History: Anxiety, Depression Smoking Status: Current every day smoker Past Alcohol Use History: None Reported Past Drug Use History: None Reported - Past Family History Father Family Medical History: Coronary Artery Disease (CAD), Hypertension, Myocardial Infarction ([place]) Additional Family Medical History / Comment(s): Brain aneurysm in more than one family member Mother Family Medical History: Congestive Heart Failure (CHF), Diabetes Mellitus, Hypertension Sister(s) Family Medical History: CVA/TIA, Myocardial Infarction ([place]) Additional Family Medical History / Comment(s): passed from massive brain bleed Brother(s) Family Medical History: Myocardial Infarction ([place]) Daughter(s) Family Medical History: No Reported History Son(s) Family Medical History: No Reported History Medications and Allergies Home Medications Medication Instructions Recorded Confirmed Type Fenofibrate [Lofibra] 160 mg PO HS 11/18/16 01/21/22 History oxyCODONE HCL/ACETAMINOPHEN 1 tab PO BID PRN 11/18/16 01/21/22 History [Percocet 10-325 mg] Atorvastatin [Lipitor] 80 mg PO HS 07/31/19 01/21/22 History Gabapentin 800 mg PO TID 07/31/19 01/21/22 History Morphine Sulfate [Morphine Sulfate 15 mg PO BID PRN 07/31/19 01/21/22 History ER] Albuterol Inhaler [Ventolin Hfa 2 puff INHALATION RT-QID PRN 11/29/21 01/21/22 History Inhaler] Flovent (Unknown Strength) 2 puff INHALATION RT-BID 11/29/21 01/21/22 History Glycopyrrolate/Formoterol Fum 1 puff INHALATION RT-DAILY 11/29/21 01/21/22 History [Bevespi Aerosphere Inhaler] lisinopriL 40 mg PO DAILY 11/29/21 01/21/22 History Morphine Sulfate ER [Ms Contin] 30 mg PO Q12HR 01/21/22 01/21/22 History Allergies Allergy/AdvReac Type Severity Reaction Status Date / Time ketorolac tromethamine AdvReac Unknown Verified 01/21/22 15:15 [From Toradol] tincture of benzoin Allergy Rash/Hives Uncoded 01/21/22 13:48 Physical Exam Osteopathic Statement: *. No significant issues noted on an osteopathic structural exam other than those noted in the History and Physical/Consult. Vitals: Vital Signs Temp Pulse Resp BP Pulse Ox 01/21/22 13:46 98.3 F 78 16 133/74 99 Intake and Output 01/21/22 01/21/22 01/21/22 06:59 14:59 22:59 Other: Weight 91.626 kg Results CBC & Chem 7: 01/21/22 14:33 01/21/22 14:33 Labs: Abnormal Lab Results - Last 24 Hours (Table) 01/21/22 Range/Units 14:33 Glucose 139 H (74-99) mg/dL
[2022-01-21] MEDS: NICOTINE 21MG/24HR PATCH TRANSDERM SCH (17:58)
[2022-01-21] MEDS: MORPHINE SULFATE 4 MG/ML SYRINGE IV PRN ×2 (18:00→21:14)
[2022-01-21] MEDS: FORMOTEROL FUMARATE 20 MCG/2 ML NEBU INHALATION SCH (19:31)
[2022-01-21] MEDS: IPRATROPIUM 0.5 MG/2.5 ML NEBU INHALATION SCH (19:31)
[2022-01-21] MEDS ORDERED: FENOFIBRATE 160 MG TAB PO SCH (21:00)
[2022-01-21] MEDS: ATORVASTATIN 80 MG TAB PO SCH (21:12)
[2022-01-21] MEDS: MORPHINE SULFATE ER 30 MG TABLET PO SCH (21:12)
[2022-01-21] MEDS: GABAPENTIN 400 MG CAP PO SCH (21:13)
[2022-01-22] MEDS: HEPARIN SODIUM,PORCINE/PF 5,000 UNIT/0.5 ML SYRINGE SQ SCH ×2 (00:24→09:52)
[2022-01-22] MEDS: MORPHINE SULFATE 4 MG/ML SYRINGE IV PRN ×2 (02:23→07:41)
[2022-01-22] MEDS: FORMOTEROL FUMARATE 20 MCG/2 ML NEBU INHALATION SCH (07:59)
[2022-01-22] MEDS: IPRATROPIUM 0.5 MG/2.5 ML NEBU INHALATION SCH ×2 (07:59→11:37)
[2022-01-22] MEDS ORDERED: NON FORMULARY DRUG (Glycopyrrolate/Formoterol Fum [Bevespi Aerosphere Inhaler] 10.7 GM Gm) INHALATION SCH (08:00)
[2022-01-22] MEDS ORDERED: FLUTICASONE 110 MCG INHALER INHALATION SCH (08:00)
[2022-01-22 08:49] LABS: African American GFR (CKD) >90 (>60 ml/min/1.73 sqM); Anion Gap 3 mmol/L; Blood Urea Nitrogen 11 mg/dL (7-17); Calcium 8.9 mg/dL (8.4-10.2); Carbon Dioxide 34 mmol/L (22-30); Chloride 104 mmol/L (98-107); Glucose 105 mg/dL (74-99); Non-African American GFR(CKD) 81 (>60 ml/min/1.73 sqM); Potassium 4.9 mmol/L (3.5-5.1); Sodium 141 mmol/L (137-145)
[2022-01-22] MEDS ORDERED: ASPIRIN 81 MG PO SCH (09:00)
[2022-01-22] MEDS ORDERED: lisinopriL 20 MG TAB PO SCH (09:00)
[2022-01-22] MEDS ORDERED: oxyCODONE-APAP 10-325MG 1 EACH TAB PO PRN (09:43)
[2022-01-22] MEDS ORDERED: MAG HYDROX/AL HYDROX/SIMETH 30 ML, HYOSCYAMINE ELIXIR 10 ML, LIDOCAINE VISCOUS 2% 10 ML PO ONE ×3 (09:44)
[2022-01-22] MEDS: MORPHINE SULFATE ER 30 MG TABLET PO SCH (09:53)
[2022-01-22] MEDS: GABAPENTIN 400 MG CAP PO SCH (09:54)
[2022-01-22] MEDS: NICOTINE 21MG/24HR PATCH TRANSDERM SCH (09:54)
--- NOTE | 2022-01-22 10:10 | P.CRDCN ---
History of Present Illness Consult date: 01/22/22 History of present illness: HISTORY OF PRESENT ILLNESS: This is a 56-year-old female with a past medical history significant for hypertension, hyperlipidemia, COPD, nicotine dependence, and chronic pain. Patient used to follow in the office with Dr. Conde but has not been seen since 2017. We have been asked to see the patient in consultation for chest pain. Patient examined at the bedside. Patient presented to the emergency room with a chief complaint of chest pain. She reports her chest pain has been present for the past 4 days. She states the pain is underneath her left breast and also in the midsternal region. She just describes the pain as a sharp pain and also a burning sensation. She reports the pain has been constant over the past 4 days. She also reports some pain in her left jaw. She reports pain in both of her arms which she states is chronic and reports she has pain in all of her muscles. She reports feeling some palpitations over the past few days as well. She continues to have chest discomfort this morning and is currently rating the pain 4/10. She reports the pain is worse with chest wall palpation and also worse with deep inspiration. The patient underwent a dobutamine stress test in 2019 which was negative for ischemia. The patient believes that she also underwent a stress echocardiogram in [place] after that but is unsure of the date. She states this was negative to her knowledge. She denies ever having a cardiac catheterization. * EKG reveals sinus mechanism with no signs of acute ischemia * Chest xray negative for acute process * Laboratory data: WBC 6.4. Hemoglobin 13.7. Platelet count 310. Sodium 141. Potassium 4.9. BUN 11. Creatinine 0.83. Magnesium 2.0. Troponin negative 3. * Current home cardiac medications include Lipitor 80 mg at night and lisinopril 40 mg daily * Most recent echocardiogram obtained in November 2016 revealed ejection fraction 55-60%, trace MR, and trace TR * Patient underwent dobutamine stress test in 2019 which was negative for ischemia REVIEW OF SYSTEMS: At the time of my exam: CONSTITUTIONAL: Denies fever or chills. HEENT: Denies blurred vision, vision changes, or eye pain. Denies hemoptysis CARDIOVASCULAR: Denies chest pain. Denies orthopnea. Denies PND. Denies palpitations RESPIRATORY: Denies shortness of breath. GASTROINTESTINAL: Denies abdominal pain. Denies nausea or vomiting. HEMATOLOGIC: Denies bleeding disorders. GENITOURINARY: Denies any blood in urine. SKIN: Denies pruitis. Denies rash. PHYSICAL EXAM: VITAL SIGNS: Reviewed. GENERAL: Well-developed in no acute distress. HEENT: Head is normocephalic. Pupils are equal, round. Sclerae anicteric. Mucous membranes of the mouth are moist. Neck supple. No JVD or thyromegaly LUNGS: Respirations even and unlabored. Lungs essentially clear to auscultation bilaterally. HEART: Regular rate and rhythm. S1 and S2 heard. ABDOMEN: Soft. Nondistended. Nontender. EXTREMITIES: Normal range of motion. No clubbing or cyanosis. Peripheral pulses intact. No lower extremity edema NEUROLOGIC: Awake and alert. Oriented x 3. ASSESSMENT: Chest pain, with typical and atypical features, reproducible, troponin negative 3 Hypertension Hyperlipidemia COPD Nicotine dependence Chronic pain with chronic opioid use PLAN: An acute coronary event has been ruled out Obtain 2-D echo to assess cardiac structure and function Check TSH Resume home cardiac medications Further recommendations pending evaluation by Dr. Houston Nurse practitioner note has been reviewed by physician. Signing provider agrees with the documented findings, assessment, and plan of care. Past Medical History Past Medical History: COPD, Hyperlipidemia, Hypertension Additional Past Medical History / Comment(s): back pain, degenerative disc disease, herniated disc., carpel tunnel, polyps on vocal cords, nodules on thyr oid, chronic neck pain, chronic and recurrent headaches History of Any Multi-Drug Resistant Organisms: None Reported Past Surgical History: Section Additional Past Surgical History / Comment(s): exploritory surgery last may to check ovaries related to increased pain Past Anesthesia/Blood Transfusion Reactions: No Reported Reaction Past Psychological History: Anxiety, Depression Smoking Status: Current every day smoker Past Alcohol Use History: None Reported Past Drug Use History: None Reported Additional Drug Use History / Comment(s): Pt denies drug use but UDS was positive for THC. - Past Family History Father Family Medical History: Coronary Artery Disease (CAD), Hypertension, Myocardial Infarction ([place]) Additional Family Medical History / Comment(s): Brain aneurysm in more than one family member Mother Family Medical History: Congestive Heart Failure (CHF), Diabetes Mellitus, Hypertension Sister(s) Family Medical History: CVA/TIA, Myocardial Infarction ([place]) Additional Family Medical History / Comment(s): passed from massive brain bleed Brother(s) Family Medical History: Myocardial Infarction ([place]) Daughter(s) Family Medical History: No Reported History Son(s) Family Medical History: No Reported History Medications and Allergies Home Medications Medication Instructions Recorded Confirmed Type Fenofibrate [Lofibra] 160 mg PO HS 11/18/16 01/21/22 History oxyCODONE HCL/ACETAMINOPHEN 1 tab PO BID PRN 11/18/16 01/21/22 History [Percocet 10-325 mg] Atorvastatin [Lipitor] 80 mg PO HS 07/31/19 01/21/22 History Gabapentin 800 mg PO TID 07/31/19 01/21/22 History Morphine Sulfate [Morphine Sulfate 15 mg PO BID PRN 07/31/19 01/21/22 History ER] Albuterol Inhaler [Ventolin Hfa 2 puff INHALATION RT-QID PRN 11/29/21 01/21/22 History Inhaler] Flovent (Unknown Strength) 2 puff INHALATION RT-BID 11/29/21 01/21/22 History Glycopyrrolate/Formoterol Fum 1 puff INHALATION RT-DAILY 11/29/21 01/21/22 History [Bevespi Aerosphere Inhaler] lisinopriL 40 mg PO DAILY 11/29/21 01/21/22 History Morphine Sulfate ER [Ms Contin] 30 mg PO Q12HR 01/21/22 01/21/22 History Allergies Allergy/AdvReac Type Severity Reaction Status Date / Time ketorolac tromethamine AdvReac Unknown Verified 01/21/22 15:15 [From Toradol] tincture of benzoin Allergy Rash/Hives Uncoded 01/21/22 13:48 Physical Exam Vitals: Vital Signs Temp Pulse Pulse Resp BP BP Pulse Ox 01/22/22 08:18 63 01/22/22 08:09 62 01/22/22 08:00 63 01/22/22 07:00 97.8 F 65 14 120/76 97 01/22/22 02:35 73 18 01/22/22 00:32 98.5 F 73 18 107/75 98 01/21/22 23:18 69 17 102/85 98 01/21/22 19:38 59 L 01/21/22 19:33 54 L 01/21/22 19:00 60 13 135/80 96 01/21/22 18:00 70 15 139/91 98 01/21/22 15:48 64 18 144/81 97 01/21/22 14:38 30 H 01/21/22 13:46 98.3 F 78 16 133/74 99 Intake and Output 01/21/22 01/22/22 01/22/22 22:59 06:59 14:59 Other: Voiding Method Toilet # Voids 1 Weight 91.626 kg Results 01/21/22 14:33 01/22/22 07:52 Cardiac Enzymes 01/21/22 01/21/22 01/21/22 Range/Units 14:33 14:33 18:25 AST 20 (14-36) U/L Troponin I <0.012 <0.012 (0.000-0.034) ng/mL 01/21/22 Range/Units 21:09 AST (14-36) U/L Troponin I <0.012 (0.000-0.034) ng/mL Coagulation 01/21/22 Range/Units 14:33 PT 9.5 (9.0-12.0) sec APTT 23.8 (22.0-30.0) sec CBC 01/21/22 Range/Units 14:33 WBC 6.4 (3.8-10.6) k/uL RBC 4.45 (3.80-5.40) m/uL Hgb 13.7 (11.4-16.0) gm/dL Hct 41.7 (34.0-46.0) % Plt Count 310 (150-450) k/uL Comprehensive Metabolic Panel 01/21/22 01/22/22 Range/Units 14:33 07:52 Sodium 140 141 (137-145) mmol/L Potassium 4.3 4.9 (3.5-5.1) mmol/L Chloride 106 104 (98-107) mmol/L Carbon Dioxide 29 34 H (22-30) mmol/L BUN 8 11 (7-17) mg/dL Creatinine 0.70 0.83 (0.52-1.04) mg/dL Glucose 139 H 105 H (74-99) mg/dL Calcium 9.1 8.9 (8.4-10.2) mg/dL AST 20 (14-36) U/L ALT 22 (4-34) U/L Alkaline Phosphatase 88 (38-126) U/L Total Protein 6.7 (6.3-8.2) g/dL Albumin 4.0 (3.5-5.0) g/dL Current Medications Generic Name Dose Route Start Last Admin Trade Name Freq PRN Reason Stop Dose Admin Acetaminophen 650 mg 01/21/22 16:06 Acetaminophen Tab 325 Mg Tab PO Q6HR PRN Mild Pain or Fever > 100.5 Albuterol/Ipratropium 3 ml 01/21/22 17:30 Ipratropium-Albuterol 3 Ml Neb INHALATION RT-Q2H PRN Shortness Of Breath Or Wheezing Aspirin 81 mg 01/22/22 09:00 Aspirin 81 Mg PO DAILY PARAMJIT Atorvastatin Calcium 80 mg 01/21/22 21:00 01/21/22 21:12 Atorvastatin 80 Mg Tab PO 80 mg HS PARAMJIT Administration Fenofibrate 160 mg 01/21/22 21:00 01/21/22 21:12 Fenofibrate 160 Mg Tab PO 160 mg HS PARAMJIT Administration Fluticasone Propionate 2 puff 01/22/22 08:00 Fluticasone 110 Mcg Inhaler INHALATION RT-BID PARAMJIT Formoterol Fumarate 20 mcg 01/21/22 20:00 01/22/22 07:59 Formoterol Fumarate 20 Mcg/2 Ml Nebu INHALATION 20 mcg RT-BID PARAMJIT Administration Gabapentin 800 mg 01/21/22 22:00 01/22/22 09:54 Gabapentin 400 Mg Cap PO 800 mg TID PARAMJIT Administration Heparin Sodium (Porcine) 5,000 unit 01/21/22 16:15 01/22/22 09:52 Heparin Sodium,Porcine/Pf 5,000 Unit/0.5 Ml Syringe SQ 5,000 unit Q8HR PARAMJIT Administration Ipratropium [place] 0.5 mg 01/21/22 20:00 01/22/22 07:59 Ipratropium 0.5 Mg/2.5 Ml Nebu INHALATION 0.5 mg RT-QID PARAJMIT Administration Lisinopril 40 mg 01/22/22 09:00 01/22/22 09:53 Lisinopril 20 Mg Tab PO 40 mg DAILY PARAMJIT Administration Morphine Sulfate 30 mg 01/21/22 21:00 01/22/22 09:53 Morphine Sulfate Er 30 Mg Tablet PO 30 mg Q12HR PARAMJIT Administration Protocol Morphine Sulfate 4 mg 01/21/22 16:05 01/22/22 07:41 Morphine Sulfate 4 Mg/Ml Syringe IV 4 mg Q4HR PRN Administration Severe Pain Naloxone HCl 0.2 mg 01/21/22 16:05 Naloxone 0.4 Mg/Ml 1 Ml Vial IV Q2M PRN Opioid Reversal Nicotine 1 patch 01/21/22 17:45 01/22/22 09:54 Nicotine 21mg/24hr Patch TRANSDERM 1 patch DAILY PARAMJIT Administration Nitroglycerin 0.4 mg 01/21/22 16:06 Nitroglycerin Sl Tabs 0.4 Mg Tab SUBLINGUAL Q5M PRN Chest Pain Ondansetron HCl 4 mg 01/21/22 16:06 Ondansetron 4 Mg/2 Ml Vial IVP Q8HR PRN Nausea And Vomiting Oxycodone/Acetaminophen 1 each 01/22/22 09:43 Oxycodone-Apap 10-325mg 1 Each Tab PO BID PRN Pain Intake and Output 01/21/22 01/22/22 01/22/22 22:59 06:59 14:59 Other: Voiding Method Toilet # Voids 1 Weight 91.626 kg 01/21/22 14:33 01/22/22 07:52
[2022-01-22 10:42] LABS: Basophils # (A) 0.04 X 10*3/uL (0.00-0.10); Basophils % (A) 0.5 %; Eosinophils # (A) 0.23 X 10*3/uL (0.04-0.35); Eosinophils % (A) 2.9 %; HGB 12.2 g/dL (12.0-15.0); Immature Grans, Automated 0.4 %; Lymphocytes # (A) 3.74 X 10*3/uL (0.90-5.00); Lymphocytes % (A) 47.4 %; MCHC 32.1 g/dL (32.0-37.0); MCV 93.6 fL (80.0-97.0); Mean Platelet Volume 9.8 fL (9.5-12.2); Monocytes # (A) 0.44 X 10*3/uL (0.20-1.00); Monocytes % (A) 5.6 %; NRBC Per 100 WBC 0 /100 WBCS (0.0-0.0); Neutrophils # (A) 3.41 X 10*3/uL (1.80-7.70); Neutrophils % (A) 43.2 %; Platelet Count 258 X 10*3/uL (140-440); RBC 4.06 X 10*6/uL (4.10-5.20); RDW 13.1 % (11.5-14.5); WBC 7.89 X 10*3/uL (4.50-10.00)
--- NOTE | 2022-01-22 13:23 | CA ---
Transthoracic Echo Report Name: Pamella Meredith Age: 56 Gender: F : 1965 Exam Date: 01/22/2022 10:00 Exam Location: [facility] Ht (in): 67 Wt (lb): 202 Ordering Physician: Michelle Renteria Attending/Referring Phys: [id number], Myra Marketing Intelligence Analyst Hodan Bond, MARISELA Procedure CPT: Indications: LV function Cardiac Hx: Technical Quality: Good Contrast 1: Total Dose (mL): Contrast 2: Total Dose (mL): MEASUREMENTS (Male / Female) Normal Values 2D ECHO LV Diastolic Diameter PLAX 4.6 cm 4.2 - 5.9 / 3.9 - 5.3 cm LV Systolic Diameter PLAX 2.9 cm IVS Diastolic Thickness 1.4 cm 0.6 - 1.0 / 0.6 - 0.9 cm LVPW Diastolic Thickness 1.4 cm 0.6 - 1.0 / 0.6 - 0.9 cm LV Relative Wall Thickness 0.6 RV Internal Dim ED PLAX 3.2 cm LA Systolic Diameter LX 3.4 cm 3.0 - 4.0 / 2.7 - 3.8 cm LA Volume 50.6 cm??? 18 - 58 / 22 - 52 cm??? M-MODE Aortic Root Diameter MM 3.0 cm MV E Point Septal Separation 0.3 cm AV Cusp Separation MM 2.1 cm DOPPLER AV Peak Velocity 155.1 cm/s AV Peak Gradient 9.6 mmHg MV Area PHT 3.6 cm??? Mitral E Point Velocity 95.0 cm/s Mitral A Point Velocity 73.4 cm/s Mitral E to A Ratio 1.3 MV Deceleration Time 210.1 ms MV E' Velocity 9.4 cm/s Mitral E to MV E' Ratio 10.1 TR Peak Velocity 214.1 cm/s TR Peak Gradient 18.3 mmHg Right Ventricular Systolic Press 23.1 mmHg FINDINGS Left Ventricle Left ventricular ejection fraction is estimated at 60-65 %. Left ventricular cavity size normal. Moderate concentric left ventricular hypertrophy. Right Ventricle Normal right ventricular size and function. Right ventricular systolic pressure within normal limits. Right Atrium Normal right atrial size. Left Atrium Normal left atrial size. No evidence for an atrial septal defect. Mitral Valve Mild mitral regurgitation. Aortic Valve Trileaflet aortic valve. No aortic valve stenosis or regurgitation. Tricuspid Valve Mild tricuspid regurgitation. Pulmonic Valve Structurally normal pulmonic valve. Pericardium Normal pericardium. Aorta Normal size aortic root and proximal ascending aorta. CONCLUSIONS Moderate LVH Normal left ventricular ejection fraction 60-65% Mild mitral regurgitation Mild tricuspid regurgitation Previewed by: Dr. Narciso Houston DO (Electronically Signed) Final Date: 22 Jan 2022 13:22
[2022-01-22 14:47] VITALS: BP 100/66; PULSE 82; RESP 15; TEMP 97.7
[2022-01-22 14:55] LABS: Chol/HDL Ratio 5.78 Ratio; LDL Cholesterol,Calculated 132.3 mg/dL (0.0-131.0)
--- NOTE | 2022-01-22 15:44 | P.DS ---
Providers Date of admission: 01/21/22 16:05 Expected date of discharge: 01/22/22 Attending physician: Jakob Bernard MD Primary care physician: Stated None Hospital Course: Discharge Diagnosis: Chest pain, acute coronary event ruled out. Hypertension. Monitor vital signs and continue daily medication regimen of lisinopril. Hyperlipidemia. Continue daily medication regimen with fenofibrate and statin. COPD. Duonebs as needed for wheezing/shortness of breath and continue daily Flovent. Nicotine dependence. Continue to educate and encourage patient on the importance of smoking cessation and the risks associated with continued use. Hospital Course: Patient is a very pleasant 56-year-old female with a past medical history of hypertension, hyperlipidemia, COPD, anxiety, depression, nicotine dependence and chronic neck and back pain. She presented to the emergency department with a chief complaint of chest/neck pain. Patient states this pain is different from her chronic neck pain and reports pain to her midsternal chest as well as beneath her left breast and patient reports having difficulty explaining how this pain feels. She reports it began approximately 4 days ago and has been waxing and waning. She states this chest pain radiates into her back and then the back of her neck accompanied by a headache. Patient denies having any dizziness, lightheadedness, changes in vision or hearing, palpitations, shortness of breath, nausea, vomiting, or experiencing any numbness/tingling/weakness in her extremities. In the emergency department, patient underwent full evaluation. EKG showing normal sinus rhythm at 73 bpm with no noted T wave or ST abnormality showing no signs of acute ischemia at this time. Chest x-ray negative for acute cardiopulmonary process. CBC, coags, and CMP were unremarkable. Troponin negative at less than 0.012. Patient was given aspirin and admitted under our services with consult to cardiology. Troponins trended overnight and were all negative at less than 0.012. Lipid profile resulting with elevated triglycerides of the 153.00 and an LDL of 132.3. Repeat labs CBC and CMP remained unremarkable. Echocardiogram completed revealing an EF of 60-65% with mild mitral and tricuspid regurgitation. Cardiology recommending outpatient follow-up in the office in 2 weeks. Patient is medically stable at this time. Vital signs unremarkable. Acute coronary event has been ruled out. Patient medically stable for discharge home and to continue fenofibrate, atorvastatin, and lisinopril. Recommend stopping smoking. Physical exam: Vital signs reviewed and stable. General: Nontoxic, no distress and appears stated age. Derm: Skin warm and dry, normal coloration for ethnicity. Head: Atraumatic, normocephalic and symmetric. Eyes: EOMs intact, no lid lag, and anicteric sclera Mouth: no lip lesions, mucus membranes moist Cardiovascular: regular rate and rhythm with normal S1S2, no murmur, positive posterior tibial pulses bilaterally, and cap refill < 2 seconds. Lungs: Respirations even, regular, and unlabored on room air. Lungs CTA bilater ally, no rhonchi, no rales, no wheezing, and no accessory muscle usage. Abdominal: soft, nontender to palpation, no guarding, no appreciable organomegaly Ext: ROM intact. No gross muscle atrophy, no edema, no contractures Neuro: Speech clear, face symmetrical and CN II-XII grossly intact with no noted focal neuro deficits Psych: Alert and oriented to person, place, time, and situation. Appropriate and pleasant affect. A total of 32 minutes of time were spent preparing this complex discharge summary. Pt was discharged on 01/22/22 at 3:11 PM Patient Condition at Discharge: Stable Plan - Discharge Summary Discharge Rx Participant: No New Discharge Prescriptions: Continue oxyCODONE HCL/ACETAMINOPHEN [Percocet 10-325 mg] 1 tab PO BID PRN PRN Reason: Pain Fenofibrate [Lofibra] 160 mg PO HS Morphine Sulfate [Morphine Sulfate ER] 15 mg PO BID PRN PRN Reason: Pain Gabapentin 800 mg PO TID Atorvastatin [Lipitor] 80 mg PO HS Glycopyrrolate/Formoterol Fum [Bevespi Aerosphere Inhaler] 1 puff INHALATION RT-DAILY Flovent (Unknown Strength) 2 puff INHALATION RT-BID Albuterol Inhaler [Ventolin Hfa Inhaler] 2 puff INHALATION RT-QID PRN PRN Reason: Shortness Of Breath Morphine Sulfate ER [Ms Contin] 30 mg PO Q12HR lisinopriL 40 mg PO DAILY Discharge Medication List Fenofibrate [Lofibra] 160 mg PO HS 11/18/16 [History] oxyCODONE HCL/ACETAMINOPHEN [Percocet 10-325 mg] 1 tab PO BID PRN 11/18/16 [History] Atorvastatin [Lipitor] 80 mg PO HS 07/31/19 [History] Gabapentin 800 mg PO TID 07/31/19 [History] Morphine Sulfate [Morphine Sulfate ER] 15 mg PO BID PRN 07/31/19 [History] Albuterol Inhaler [Ventolin Hfa Inhaler] 2 puff INHALATION RT-QID PRN 11/29/21 [History] Flovent (Unknown Strength) 2 puff INHALATION RT-BID 11/29/21 [History] Glycopyrrolate/Formoterol Fum [Bevespi Aerosphere Inhaler] 1 puff INHALATION RT-DAILY 11/29/21 [History] lisinopriL 40 mg PO DAILY 11/29/21 [History] Morphine Sulfate ER [Ms Contin] 30 mg PO Q12HR 01/21/22 [History] Follow up Appointment(s)/Referral(s): Narciso Houston DO [STAFF PHYSICIAN] - 02/04/22 3:15 pm Tom Sanchez MD [REFERRING] - 1-2 Days Patient Instructions/Handouts: GERD (Gastroesophageal Reflux Disease) (DC), Chronic Back Pain (DC) Activity/Diet/Wound Care/Special Instructions: Activity: As tolerated. Take breaks as needed. Diet: Heart healthy and carb consistent diet. Avoid salts, or foods with hidden salts such as canned or boxed foods and frozen dinners. Extra salt makes your heart work harder and traps the fluid in your body for longer. Special Instructions: Take all of your medications as directed and remember to keep all of your doctor's appointments and follow-up as needed. Thank you for allowing us to participate in your care, it was truly a pleasure having you for our patient!!! Discharge Disposition: HOME SELF-CARE
== END 2022-01-22 15:35 | disposition home or self-care (01) ==
LOC: EC 13:26 → 6NMEDSUR 16:05
PROVIDERS: ADMIT Internal Medicine; ATTEND Internal Medicine
DX: R07.89 Other chest pain (principal); J44.9 Chronic obstructive pulmonary disease, unspecified; R11.0 Nausea; I10 Essential (primary) hypertension; E78.5 Hyperlipidemia, unspecified; R00.2 Palpitations; E78.1 Pure hyperglyceridemia; I08.1 Rheumatic disorders of both mitral and tricuspid valves; J38.1 Polyp of vocal cord and larynx; G56.00 Carpal tunnel syndrome, unspecified upper limb; G89.29 Other chronic pain; M54.2 Cervicalgia; M54.9 Dorsalgia, unspecified; R51.9 Headache, unspecified; R68.84 Jaw pain; M79.602 Pain in left arm; M79.601 Pain in right arm; M79.10 Myalgia, unspecified site; F32.A Depression, unspecified; F41.9 Anxiety disorder, unspecified; F17.200 Nicotine dependence, unspecified, uncomplicated; Z79.51 Long term (current) use of inhaled steroids; Z79.891 Long term (current) use of opiate analgesic; Z79.899 Other long term (current) drug therapy; Z88.5 Allergy status to narcotic agent; Z88.8 Allergy status to other drugs, medicaments and biological substances; Z98.891 History of uterine scar from previous surgery; Z98.890 Other specified postprocedural states; Z71.6 Tobacco abuse counseling; Z82.49 Family history of ischemic heart disease and other diseases of the circulatory system; Z83.3 Family history of diabetes mellitus; Z82.3 Family history of stroke
CPT/HCPCS: 96376 ×2; 96372 ×2; 96374; 99285; 36415; 94640 ×2; 93005; 93306; 80061; 80053; 80048; 84443; 83690; 83735 ×2; 84484; 85025 ×2; 85610; 85730; 71046; G0378 ×2; S4990 ×2; J2270 ×2; J1644 ×2

== ENCOUNTER 2022-01-26 01:58 | Emergency (ER) | payer OTHER ==
[2022-01-26 02:03] VITALS: BP 141/92; PULSE 92; RESP 18; TEMP 98.1
[2022-01-26] MEDS ORDERED: MORPHINE SULFATE 4 MG/ML SYRINGE IM STA ×2 (03:22→04:43)
--- NOTE | 2022-01-26 04:06 | CT ---
EXAMINATION TYPE: CT cervical spine wo con DATE OF EXAM: 01/26/2022 COMPARISON: 10/15/2021 HISTORY: Pt states she has a herniated disc in her neck CT DLP: 541.9 mGycm Automated exposure control for dose reduction was used. Images obtained from the skull base to T1 vertebra without contrast. Cervical vertebra show some straightening. Disc spaces are fairly normal. No compression fracture. No evidence of focal bone destruction. Facet joints are intact. Prevertebral soft tissues are intact. T he skull base is intact. IMPRESSION: Minor degenerative changes in the cervical spine at C5-6 and C6-7 with spur formation. No fracture. N o change compared to the old exam.
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
[2022-01-26] MEDS ORDERED: predniSONE 20 MG TAB PO STA (04:35)
== END 2022-01-26 05:24 | disposition home or self-care (01) ==
LOC: EC 01:58
DX: M54.12 Radiculopathy, cervical region (principal); E78.5 Hyperlipidemia, unspecified; F17.200 Nicotine dependence, unspecified, uncomplicated; I10 Essential (primary) hypertension; J44.9 Chronic obstructive pulmonary disease, unspecified; Z79.51 Long term (current) use of inhaled steroids; Z88.8 Allergy status to other drugs, medicaments and biological substances; Z88.6 Allergy status to analgesic agent; Z79.899 Other long term (current) drug therapy
CPT/HCPCS: 72125; 99283; 96372; J2270; J7512

== ENCOUNTER 2022-03-03 03:25 | Emergency (ER) | payer OTHER ==
[2022-03-03 03:42] VITALS: BP 148/71; PULSE 74; RESP 18; TEMP 98.7
[2022-03-03] MEDS ORDERED: PERMETHRIN 5% CREAM 60 GM TUBE TOPICAL ONE (04:00)
[2022-03-03] MEDS ORDERED: dexAMETHasone 2 MG TAB PO STA (04:22)
--- NOTE | 2022-03-03 04:22 | ED ---
Allergic Reaction HPI - General Chief complaint: Recheck/Abnormal Lab/Rx Stated complaint: STD test Time Seen by Provider: 03/03/22 03:45 Source: patient, RN notes reviewed, old records reviewed Mode of arrival: ambulatory Limitations: no limitations - History of Present Illness Initial Comments: This is a 56-year-old female presenting with significant itching. Patient very concerned over cause of which, which is been exposed to STI especially vaginal crabs. Patient has no burning with urination but does not fill on his itching all over body MD Complaint: other (Vaginal cramps) Exposure: other (Sexual transmission) Severity: moderate Treatment Prior to Arrival: benadryl Previous Allergy History: none - Related Data Home Medications Medication Instructions Recorded Confirmed Fenofibrate [Lofibra] 160 mg PO HS 11/18/16 01/21/22 oxyCODONE HCL/ACETAMINOPHEN 1 tab PO BID PRN 11/18/16 01/21/22 [Percocet 10-325 mg] Atorvastatin [Lipitor] 80 mg PO HS 07/31/19 01/21/22 Gabapentin 800 mg PO TID 07/31/19 01/21/22 Morphine Sulfate [Morphine Sulfate 15 mg PO BID PRN 07/31/19 01/21/22 ER] Albuterol Inhaler [Ventolin Hfa 2 puff INHALATION RT-QID PRN 11/29/21 01/21/22 Inhaler] Flovent (Unknown Strength) 2 puff INHALATION RT-BID 11/29/21 01/21/22 Glycopyrrolate/Formoterol Fum 1 puff INHALATION RT-DAILY 11/29/21 01/21/22 [Bevespi Aerosphere Inhaler] lisinopriL 40 mg PO DAILY 11/29/21 01/21/22 Morphine Sulfate ER [Ms Contin] 30 mg PO Q12HR 01/21/22 01/21/22 Previous Rx's Medication Instructions Recorded methocarbamoL [Robaxin-750] 750 mg PO TID PRN #30 tablet 01/26/22 predniSONE 60 mg PO DAILY #30 tab 01/26/22 Allergies Allergy/AdvReac Type Severity Reaction Status Date / Time ketorolac tromethamine AdvReac Unknown Verified 03/03/22 03:39 [From Toradol] tincture of benzoin Allergy Rash/Hives Uncoded 03/03/22 03:39 Review of Systems ROS Statement: Those systems with pertinent positive or pertinent negative responses have been documented in the HPI. ROS Other: All systems not noted in ROS Statement are negative. Past Medical History Past Medical History: COPD, Hyperlipidemia, Hypertension Additional Past Medical History / Comment(s): back pain, degenerative disc disease, herniated disc., carpel tunnel, polyps on vocal cords, nodules on thyroid, chronic neck pain, chronic and recurrent headaches History of Any Multi-Drug Resistant Organisms: None Reported Past Surgical History: Section Additional Past Surgical History / Comment(s): exploritory surgery last december to check ovaries related to increased pain Past Anesthesia/Blood Transfusion Reactions: No Reported Reaction Past Psychological History: Anxiety, Depression Smoking Status: Current every day smoker Past Alcohol Use History: None Reported Past Drug Use History: None Reported - Past Family History Father Family Medical History: Coronary Artery Disease (CAD), Hypertension, Myocardial Infarction ([place]) Additional Family Medical History / Comment(s): Brain aneurysm in more than one family member Mother Family Medical History: Congestive Heart Failure (CHF), Diabetes Mellitus, Hypertension Sister(s) Family Medical History: CVA/TIA, Myocardial Infarction ([place]) Additional Family Medical History / Comment(s): passed from massive brain bleed Brother(s) Family Medical History: Myocardial Infarction ([place]) Daughter(s) Family Medical History: No Reported History Son(s) Family Medical History: No Reported History General Exam Limitations: no limitations General appearance: alert, in no apparent distress Head exam: Present: atraumatic, normocephalic, normal inspection Eye exam: Present: normal appearance, PERRL, EOMI. Absent: scleral icterus, conjunctival injection, periorbital swelling ENT exam: Present: normal exam, mucous membranes moist Neck exam: Present: normal inspection. Absent: tenderness, meningismus, lymphadenopathy Respiratory exam: Present: normal lung sounds bilaterally. Absent: respiratory distress, wheezes, rales, rhonchi, stridor Cardiovascular Exam: Present: regular rate, normal rhythm, normal heart sounds. Absent: systolic murmur, diastolic murmur, rubs, gallop, clicks GI/Abdominal exam: Present: soft, normal bowel sounds. Absent: distended, tenderness, guarding, rebound, rigid Extremities exam: Present: normal inspection, full ROM, normal capillary refill. Absent: tenderness, pedal edema, joint swelling, calf tenderness Back exam: Present: normal inspection Neurological exam: Present: alert, oriented X3, CN II-XII intact Psychiatric exam: Present: normal affect, normal mood Skin exam: Present: warm, dry, intact, normal color. Absent: rash Course Vital Signs 03/03/22 03:39 Temperature 98.7 F Pulse Rate 74 Respiratory 18 Rate Blood Pressure 148/71 O2 Sat by Pulse 98 Oximetry - Reevaluation(s) Reevaluation #1: 03/03/22 05:00 Medical record is reviewed Reevaluation #2: 03/03/22 05:00 Patient informed results and questions answered Medical Decision Making - Medical Decision Making 56 female presents today for evaluation of itchy, as well as STI versus louse. Patient given treatment for louse and can be discharged home Disposition Clinical Impression: STI (sexually transmitted infection) Disposition: HOME SELF-CARE Condition: Good Instructions (If sedation given, give patient instructions): Sexually Transmitted Diseases (ED) Is patient prescribed a controlled substance at d/c from ED?: No Referrals: None,Stated [Primary Care Provider] - 1-2 days Time of Disposition: 05:00
[2022-03-03 05:32] LABS: Appearance,Urine Clear (Clear); Bacteria,Urine Rare /hpf; Bilirubin,Urine Negative (Negative); Blood,Urine Trace (Negative); Color,Urine Colorless; Glucose,Urine (UA) Negative (Negative); Ketones,Urine Negative (Negative); Leukocyte Esterase,Urine Negative (Negative); Nitrite,Urine Negative (Negative); Protein,Urine Negative (Negative); RBC,Urine 6 /hpf (0-5); Specific Gravity,Urine 1.005 (1.001-1.035); Squamous Epithelial Cell,Urine <1 /hpf (0-4); Urobilinogen,Urine <2.0 mg/dL (<2.0); WBC,Urine 2 /hpf (0-5)
== END 2022-03-03 06:10 | disposition home or self-care (01) ==
LOC: EC 03:25
DX: A64 Unspecified sexually transmitted disease (principal); I10 Essential (primary) hypertension; E78.5 Hyperlipidemia, unspecified; J44.9 Chronic obstructive pulmonary disease, unspecified; F32.A Depression, unspecified; F41.9 Anxiety disorder, unspecified; F17.200 Nicotine dependence, unspecified, uncomplicated; Z79.51 Long term (current) use of inhaled steroids; Z79.899 Other long term (current) drug therapy
CPT/HCPCS: 81001; 87491; 87591; 99283

== ENCOUNTER 2022-04-18 22:58 | Emergency (ER) | payer OTHER ==
[2022-04-18 23:31] VITALS: BP 141/89; PULSE 84; RESP 16; TEMP 98.2
[2022-04-19 00:11] LABS: Appearance,Urine Clear (Clear); Bilirubin,Urine Negative (Negative); Blood,Urine Negative (Negative); Color,Urine Colorless; Glucose,Urine (UA) Negative (Negative); Ketones,Urine Negative (Negative); Leukocyte Esterase,Urine Negative (Negative); Nitrite,Urine Negative (Negative); PH, Urine 5.5 (5.0-8.0); Protein,Urine Negative (Negative); Specific Gravity,Urine 1.001 (1.001-1.035); Urobilinogen,Urine <2.0 mg/dL (<2.0)
[2022-04-19 00:12] LABS: Basophils # (A) 0.1 k/uL (0-0.2); Basophils % (A) 1 %; Eosinophils # (A) 0.1 k/uL (0-0.7); Eosinophils % (A) 1 %; HGB 13.9 gm/dL (11.4-16.0); Lymphocytes # (A) 3.4 k/uL (1.0-4.8); Lymphocytes % (A) 31 %; MCH 32.2 pg (25.0-35.0); MCHC 33.8 g/dL (31.0-37.0); MCV 95.3 fL (80.0-100.0); Mean Platelet Volume 7.7; Monocytes # (A) 0.4 k/uL (0-1.0); Monocytes % (A) 4 %; Neutrophils # (A) 6.9 k/uL (1.3-7.7); Neutrophils % (A) 62 %; Platelet Count 289 k/uL (150-450); RDW 12.6 % (11.5-15.5); WBC 11.1 k/uL (3.8-10.6)
[2022-04-19 00:22] LABS: ALT 18 U/L (4-34); AST 24 U/L (14-36); African American GFR (CKD) >90 (>60 ml/min/1.73 sqM); Albumin 4.6 g/dL (3.5-5.0); Alkaline Phosphatase 95 U/L (38-126); Amylase 36 U/L (30-110); Anion Gap 13 mmol/L; Blood Urea Nitrogen 9 mg/dL (7-17); Calcium 9.6 mg/dL (8.4-10.2); Carbon Dioxide 24 mmol/L (22-30); Chloride 100 mmol/L (98-107); Glucose 86 mg/dL (74-99); Lipase 46 U/L (23-300); Non-African American GFR(CKD) >90 (>60 ml/min/1.73 sqM); Potassium 3.8 mmol/L (3.5-5.1); Sodium 137 mmol/L (137-145); Total Bilirubin 0.4 mg/dL (0.2-1.3); Total Protein 7.4 g/dL (6.3-8.2)
[2022-04-19] MEDS ORDERED: SODIUM CHLORIDE 0.9% 500 ML 500 ML IV STA (02:32)
[2022-04-19] MEDS ORDERED: MORPHINE SULFATE 4 MG/ML SYRINGE IV STA ×2 (02:32→05:36)
--- NOTE | 2022-04-19 02:49 | ED ---
General Adult HPI - General Chief complaint: Nausea/Vomiting/Diarrhea Stated complaint: headache, body aches Time Seen by Provider: 04/19/22 02:20 Source: patient Mode of arrival: ambulatory Limitations: no limitations - History of Present Illness -: hour(s) Location: left, right, lower extremity Radiation: non-radiation Quality: other (Spasms) Consistency: intermittent Improves with: none Worsens with: none Treatments Prior to Arrival: none - Related Data Home Medications Medication Instructions Recorded Confirmed Fenofibrate [Lofibra] 160 mg PO HS 11/18/16 01/21/22 oxyCODONE HCL/ACETAMINOPHEN 1 tab PO BID PRN 11/18/16 01/21/22 [Percocet 10-325 mg] Atorvastatin [Lipitor] 80 mg PO HS 07/31/19 01/21/22 Gabapentin 800 mg PO TID 07/31/19 01/21/22 Morphine Sulfate [Morphine Sulfate 15 mg PO BID PRN 07/31/19 01/21/22 ER] Albuterol Inhaler [Ventolin Hfa 2 puff INHALATION RT-QID PRN 11/29/21 01/21/22 Inhaler] Flovent (Unknown Strength) 2 puff INHALATION RT-BID 11/29/21 01/21/22 Glycopyrrolate/Formoterol Fum 1 puff INHALATION RT-DAILY 11/29/21 01/21/22 [Bevespi Aerosphere Inhaler] lisinopriL 40 mg PO DAILY 11/29/21 01/21/22 Morphine Sulfate ER [Ms Contin] 30 mg PO Q12HR 01/21/22 01/21/22 Previous Rx's Medication Instructions Recorded methocarbamoL [Robaxin-750] 750 mg PO TID PRN #30 tablet 01/26/22 predniSONE 60 mg PO DAILY #30 tab 01/26/22 Allergies Allergy/AdvReac Type Severity Reaction Status Date / Time ketorolac tromethamine AdvReac Unknown Verified 04/18/22 23:30 [From Toradol] tincture of benzoin Allergy Rash/Hives Uncoded 04/18/22 23:30 Review of Systems ROS Statement: Those systems with pertinent positive or pertinent negative responses have been documented in the HPI. ROS Other: All systems not noted in ROS Statement are negative. Constitutional: Denies: fever, chills Respiratory: Denies: cough, dyspnea Cardiovascular: Denies: chest pain, palpitations, edema Gastrointestinal: Denies: abdominal pain, vomiting, diarrhea Genitourinary: Denies: dysuria Musculoskeletal: Reports: myalgia. Denies: back pain Skin: Denies: rash Neurological: Denies: headache, weakness Past Medical History Past Medical History: COPD, Hyperlipidemia, Hypertension Additional Past Medical History / Comment(s): back pain, degenerative disc disease, herniated disc., carpel tunnel, polyps on vocal cords, nodules on thyroid, chronic neck pain, chronic and recurrent headaches History of Any Multi-Drug Resistant Organisms: None Reported Past Surgical History: Section Additional Past Surgical History / Comment(s): exploritory surgery last december to check ovaries related to increased pain Past Anesthesia/Blood Transfusion Reactions: No Reported Reaction Past Psychological History: Anxiety, Depression Smoking Status: Current every day smoker Past Alcohol Use History: None Reported Past Drug Use History: None Reported - Past Family History Father Family Medical History: Coronary Artery Disease (CAD), Hypertension, Myocardial Infarction ([place]) Additional Family Medical History / Comment(s): Brain aneurysm in more than one family member Mother Family Medical History: Congestive Heart Failure (CHF), Diabetes Mellitus, Hypertension Sister(s) Family Medical History: CVA/TIA, Myocardial Infarction ([place]) Additional Family Medical History / Comment(s): passed from massive brain bleed Brother(s) Family Medical History: Myocardial Infarction ([place]) Daughter(s) Family Medical History: No Reported History Son(s) Family Medical History: No Reported History General Exam Limitations: no limitations General appearance: alert, in no apparent distress Head exam: Present: atraumatic, normocephalic Eye exam: Present: normal appearance. Absent: scleral icterus, conjunctival injection Neck exam: Present: normal inspection Respiratory exam: Present: normal lung sounds bilaterally. Absent: respiratory distress, wheezes, rales, rhonchi, stridor Cardiovascular Exam: Present: regular rate, normal rhythm, normal heart sounds. Absent: systolic murmur, diastolic murmur, rubs, gallop GI/Abdominal exam: Present: soft. Absent: distended, tenderness, guarding, rebound, rigid, mass Extremities exam: Present: normal inspection, normal capillary refill. Absent: pedal edema, calf tenderness Back exam: Present: normal inspection. Absent: CVA tenderness (R), CVA tenderness (L) Neurological exam: Present: alert Skin exam: Present: warm, dry, intact, normal color. Absent: rash Course Vital Signs 04/18/22 23:27 Temperature 98.2 F Pulse Rate 84 Respiratory 16 Rate Blood Pressure 141/89 O2 Sat by Pulse 99 Oximetry Medical Decision Making - Lab Data Result diagrams: 04/18/22 23:50 04/18/22 23:50 Lab Results 04/18/22 04/18/22 04/18/22 Range/Units 23:50 23:50 23:50 WBC 11.1 H (3.8-10.6) k/uL RBC 4.30 (3.80-5.40) m/uL Hgb 13.9 (11.4-16.0) gm/dL Hct 41.0 (34.0-46.0) % MCV 95.3 (80.0-100.0) fL MCH 32.2 (25.0-35.0) pg MCHC 33.8 (31.0-37.0) g/dL RDW 12.6 (11.5-15.5) % Plt Count 289 (150-450) k/uL MPV 7.7 Neutrophils % 62 % Lymphocytes % 31 % Monocytes % 4 % Eosinophils % 1 % Basophils % 1 % Neutrophils # 6.9 (1.3-7.7) k/uL Lymphocytes # 3.4 (1.0-4.8) k/uL Monocytes # 0.4 (0-1.0) k/uL Eosinophils # 0.1 (0-0.7) k/uL Basophils # 0.1 (0-0.2) k/uL Sodium 137 (137-145) mmol/L Potassium 3.8 (3.5-5.1) mmol/L Chloride 100 (98-107) mmol/L Carbon Dioxide 24 (22-30) mmol/L Anion Gap 13 mmol/L BUN 9 (7-17) mg/dL Creatinine 0.68 (0.52-1.04) mg/dL Est GFR (CKD-EPI)AfAm >90 (>60 ml/min/1.73 sqM) Est GFR (CKD-EPI)NonAf >90 (>60 ml/min/1.73 sqM) Glucose 86 (74-99) mg/dL Calcium 9.6 (8.4-10.2) mg/dL Total Bilirubin 0.4 (0.2-1.3) mg/dL AST 24 (14-36) U/L ALT 18 (4-34) U/L Alkaline Phosphatase 95 (38-126) U/L Total Protein 7.4 (6.3-8.2) g/dL Albumin 4.6 (3.5-5.0) g/dL Amylase 36 (30-110) U/L Lipase 46 (23-300) U/L Urine Color Colorless Urine Appearance Clear (Clear) Urine pH 5.5 (5.0-8.0) Ur Specific [place] 1.001 (1.001-1.035) Urine Protein Negative (Negative) Urine Glucose (UA) Negative (Negative) Urine Ketones Negative (Negative) Urine Blood Negative (Negative) Urine Nitrite Negative (Negative) Urine Bilirubin Negative (Negative) Urine Urobilinogen <2.0 (<2.0) mg/dL Ur Leukocyte Esterase Negative (Negative) Disposition Clinical Impression: Muscle spasm Disposition: HOME SELF-CARE Condition: Good Instructions (If sedation given, give patient instructions): Muscle Spasm (ED) Is patient prescribed a controlled substance at d/c from ED?: No Referrals: None,Stated [Primary Care Provider] - 1-2 days
[2022-04-19 05:23] LABS: Magnesium 1.7 mg/dL (1.6-2.3)
[2022-04-19 05:53] LABS: Amphetamine Screen,Urine Not Detected (NotDetected); Barbiturate Screen,Urine Not Detected (NotDetected); Benzodiazepines Screen,Urine Not Detected (NotDetected); Cocaine Screen,Urine Not Detected (NotDetected); Methadone Screen, Urine Not Detected (NotDetected); Opiate Screen,Urine Detected (NotDetected); Oxycodone Screen, Urine Detected (NotDetected); Phencyclidine Screen,Urine Not Detected (NotDetected); Tricyclic Antidepressant,Urine Not Detected (NotDetected); Urn Cannabinoid Scrn Not Detected (NotDetected)
[2022-04-23 07:52] LABS: Arsenic Whole Blood <3 mcg/L (<23); Mercury Whole Blood <5 mcg/L (<OR=10)
== END 2022-04-19 05:48 | disposition home or self-care (01) ==
LOC: EC 22:58
DX: M62.838 Other muscle spasm (principal); J44.9 Chronic obstructive pulmonary disease, unspecified; E78.5 Hyperlipidemia, unspecified; I10 Essential (primary) hypertension; F17.200 Nicotine dependence, unspecified, uncomplicated; Z82.49 Family history of ischemic heart disease and other diseases of the circulatory system; Z88.6 Allergy status to analgesic agent; Z88.8 Allergy status to other drugs, medicaments and biological substances
CPT/HCPCS: 36415 ×2; 83655 ×2; 80053; 82150; 83690; 83735; 85025; 81003; 82175; 83825 ×2; 82570; 80306; 99284; 96374; J2270

== ENCOUNTER 2022-04-26 18:21 | Emergency (ER) | payer OTHER ==
[2022-04-26 19:09] VITALS: RESP 24; TEMP 97.9
[2022-04-26] MEDS ORDERED: SODIUM CHLORIDE 0.9% 1,000 ML IV STA (21:31)
[2022-04-26] MEDS ORDERED: FLUORESCEIN STRIPS 1 MG STRIP LEFT EYE ONE (21:34)
[2022-04-26] MEDS ORDERED: PROPARACAINE 0.5% OPHTH DROPS 15 ML BTL LEFT EYE STA (21:34)
[2022-04-26] MEDS ORDERED: CYCLOBENZAPRINE 5 MG TAB PO STA (21:35)
[2022-04-26] MEDS ORDERED: ASPIRIN 325 MG TAB PO STA (22:00)
--- NOTE | 2022-04-26 22:16 | XR ---
EXAMINATION TYPE: XR chest 2V DATE OF EXAM: 04/26/2022 COMPARISON: 01/21/2022 HISTORY: Chest pain TECHNIQUE: 2 views FINDINGS: Heart and mediastinum are normal. Lungs are clear. Diaphragm is normal. Bony thorax is inta ct. IMPRESSION: Normal chest. No change.
[2022-04-26 22:21] LABS: Basophils # (A) 0.1 k/uL (0-0.2); Basophils % (A) 1 %; Eosinophils # (A) 0.3 k/uL (0-0.7); Eosinophils % (A) 3 %; HCT 42.2 % (34.0-46.0); HGB 13.6 gm/dL (11.4-16.0); Lymphocytes # (A) 3.8 k/uL (1.0-4.8); Lymphocytes % (A) 36 %; MCH 30.4 pg (25.0-35.0); MCHC 32.3 g/dL (31.0-37.0); MCV 93.9 fL (80.0-100.0); Mean Platelet Volume 7.9; Monocytes # (A) 0.5 k/uL (0-1.0); Monocytes % (A) 5 %; Neutrophils # (A) 5.6 k/uL (1.3-7.7); Neutrophils % (A) 53 %; Platelet Count 277 k/uL (150-450); RBC 4.49 m/uL (3.80-5.40); RDW 12.1 % (11.5-15.5); WBC 10.5 k/uL (3.8-10.6)
[2022-04-26 22:30] LABS: INR 0.9 (<1.2); Partial Thromboplastin Time 24.5 sec (22.0-30.0); Prothrombin Time 9.9 sec (9.0-12.0)
[2022-04-26 22:35] LABS: ALT 20 U/L (4-34); AST 22 U/L (14-36); African American GFR (CKD) >90 (>60 ml/min/1.73 sqM); Albumin 4.4 g/dL (3.5-5.0); Alkaline Phosphatase 83 U/L (38-126); Anion Gap 13 mmol/L; Blood Urea Nitrogen 5 mg/dL (7-17); Calcium 9.4 mg/dL (8.4-10.2); Carbon Dioxide 26 mmol/L (22-30); Chloride 101 mmol/L (98-107); Glucose 69 mg/dL (74-99); Magnesium 1.7 mg/dL (1.6-2.3); Non-African American GFR(CKD) >90 (>60 ml/min/1.73 sqM); Potassium 3.9 mmol/L (3.5-5.1); Sodium 140 mmol/L (137-145); Total Bilirubin 0.3 mg/dL (0.2-1.3)
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
[2022-04-26] MEDS ORDERED: ACETAMINOPHEN TAB 500 MG TAB PO STA (23:23)
[2022-04-26 23:59] VITALS: BP 141/68; PULSE 67
== END 2022-04-26 23:59 | disposition home or self-care (01) ==
LOC: EC 18:21
DX: R07.89 Other chest pain (principal); H57.12 Ocular pain, left eye; F60.0 Paranoid personality disorder; R06.02 Shortness of breath; J44.9 Chronic obstructive pulmonary disease, unspecified; E78.5 Hyperlipidemia, unspecified; I10 Essential (primary) hypertension; F17.200 Nicotine dependence, unspecified, uncomplicated; Z20.822 Contact with and (suspected) exposure to COVID-19; Z79.51 Long term (current) use of inhaled steroids; Z79.899 Other long term (current) drug therapy; Z88.6 Allergy status to analgesic agent; Z88.8 Allergy status to other drugs, medicaments and biological substances
CPT/HCPCS: 36415; 71046; 80053; 83735; 83880; 84484; 85025; 85610; 85730; 87635; 93005; 99285

== ENCOUNTER 2024-12-09 16:04 | Emergency (ER) | payer OTHER ==
[2024-12-09 16:11] VITALS: RESP 20
--- NOTE | 2024-12-09 16:31 | ED ---
Fall HPI - General Chief Complaint: Fall Stated Complaint: fall Time Seen by Provider: 12/09/24 16:29 Source: patient, RN notes reviewed, old records reviewed Mode of arrival: ambulatory Limitations: no limitations - History of Present Illness Initial Comments: Patient is a 58-year-old female presented the ER for evaluation of a fall. Patient states last 12-03-2024 she was walking through a restaurant which had uneven ground causing her to trip and fall. She states she tried to brace her fall with her left hand and landed on her left hip and wrist. She denies any head injury, loss of consciousness or blood thinner use. She denies any dizziness, lightheadedness, chest pain or shortness of breath prior to the fall. Patient states since then she has noted bruising to her left thenar eminence which has resolved, over the past week. She has taken prescribed MS contin and percocet for pain control. Patient reports generalized body pain but states this is chronic in nature as she has numerous urinary discs in her back and is following up with . No other falls since Friday. Patient does typically ambulate with a cane. Patient denies any other injuries or complaints. - Related Data Home Medications Medication Instructions Recorded Confirmed oxyCODONE HCL/ACETAMINOPHEN 1 tab PO BID 11/18/16 12/09/24 [Percocet 10-325 mg] Atorvastatin [Lipitor] 80 mg PO HS 07/31/19 12/09/24 Gabapentin 800 mg PO BID 07/31/19 12/09/24 Albuterol Inhaler [Ventolin Hfa 2 puff INHALATION RT-Q4H PRN 11/29/21 12/09/24 Inhaler] lisinopriL 40 mg PO DAILY 11/29/21 12/09/24 Morphine Sulfate ER [Ms Contin] 30 mg PO Q12HR 01/21/22 12/09/24 Aspirin EC [Ecotrin Low Dose] 81 mg PO DAILY 12/09/24 12/09/24 Allergies Allergy/AdvReac Type Severity Reaction Status Date / Time ketorolac tromethamine AdvReac Unknown Verified 12/09/24 16:35 [From Toradol] tincture of benzoin Allergy Rash/Hives Uncoded 04/26/22 19:09 Review of Systems ROS Statement: Those systems with pertinent positive or pertinent negative responses have been documented in the HPI. ROS Other: All systems not noted in ROS Statement are negative. Past Medical History Past Medical History: COPD, Hyperlipidemia, Hypertension Additional Past Medical History / Comment(s): back pain, degenerative disc disease, herniated disc., carpel tunnel, polyps on vocal cords, nodules on thyroid, chronic neck pain, chronic and recurrent headaches History of Any Multi-Drug Resistant Organisms: None Reported Past Surgical History: Section Additional Past Surgical History / Comment(s): exploritory surgery last december to check ovaries related to increased pain Past Anesthesia/Blood Transfusion Reactions: No Reported Reaction Past Psychological History: Anxiety, Depression Smoking Status: Current every day smoker Past Alcohol Use History: None Reported Past Drug Use History: None Reported - Past Family History Father Family Medical History: Coronary Artery Disease (CAD), Hypertension, Myocardial Infarction ([place]) Additional Family Medical History / Comment(s): Brain aneurysm in more than one family member Mother Family Medical History: Congestive Heart Failure (CHF), Diabetes Mellitus, Hypertension Sister(s) Family Medical History: CVA/TIA, Myocardial Infarction ([place]) Additional Family Medical History / Comment(s): passed from massive brain bleed Brother(s) Family Medical History: Myocardial Infarction ([place]) Daughter(s) Family Medical History: No Reported History Son(s) Family Medical History: No Reported History General Exam Limitations: no limitations General appearance: alert, in no apparent distress Neck exam: Present: normal inspection. Absent: tenderness, meningismus, lymphadenopathy Respiratory exam: Present: normal lung sounds bilaterally. Absent: respiratory distress, wheezes, rales, rhonchi, stridor Cardiovascular Exam: Present: regular rate, normal rhythm, normal heart sounds. Absent: systolic murmur, diastolic murmur, rubs, gallop, clicks Extremities exam: Present: normal inspection, full ROM, normal capillary refill (2+ bilateral radial and PT pulses), other (Negative leg roll bilaterally. No anatomical snuffbox tenderness bilaterally). Absent: tenderness, pedal edema, joint swelling, calf tenderness Back exam: Present: normal inspection Neurological exam: Present: alert, oriented X3, CN II-XII intact Skin exam: Present: warm, dry, intact, normal color. Absent: rash Course Vital Signs 12/09/24 12/09/24 16:06 17:33 Temperature 98.6 F 98.4 F Pulse Rate 103 H 99 Respiratory 20 20 Rate Blood Pressure 145/96 141/88 O2 Sat by Pulse 97 100 Oximetry - Reevaluation(s) Reevaluation #1: Patient seen ambulating with her cane to the bathroom without difficulty Medical Decision Making - Medical Decision Making Was pt. sent in by a medical professional or institution (, [facility], SEWING MACHINES SALESPERSON, urgent care, hospital, or half-way...) When possible be specific @ -No Did you speak to anyone other than the patient for history (EMS, parent, family, police, friend...)? What history was obtained from this source @ -No Did you review nursing and triage notes (agree or disagree)? Why? @ -I reviewed and agree with nursing and triage notes Were old charts reviewed (outside hosp., previous admission, EMS record, old EKG, old radiological studies, urgent care reports/EKG's, half-way records)? Report findings @ -No old charts were reviewed Differential Diagnosis (chest pain, altered mental status, abdominal pain women, abdominal pain men, vaginal bleeding, weakness, fever, dyspnea, syncope, headache, dizziness, GI bleed, back pain, seizure, CVA, palpatations, mental health, musculoskeletal)? @ -Fracture, dislocation, contusion, hematoma, intracranial hemorrhage, concussion, abrasion, laceration this list does not like to be all-inclusive EKG interpreted by me (3pts min.). @ -None done X-rays interpreted by me (1pt min.). @ -Left wrist x-ray interpreted me negative for acute fractures or dislocations. Left hand x-ray interpreted by me negative for acute fractures or dislocations. Left hip AP pelvis x-ray interpreted me negative for acute fractures or dislocations. Left knee x-ray showing bone spur off the superior patella. No fractures or dislocations. CT interpreted by me (1pt min.). @ -None done U/S interpreted by me (1pt. min.). @ -None done What testing was considered but not performed or refused? (CT, X-rays, U/S, labs)? Why? @ -None What meds were considered but not given or refused? Why? @ -None Did you discuss the management of the patient with other professionals (professionals i.e. , PA, SEWING MACHINES SALESPERSON, lab, RT, psych nurse, social work therapist, smooth stucco resurfacer, teacher, home lending officer, rn case mgr)? Give summary @ -No Was smoking cessation discussed for >3mins.? @ -No Was critical care preformed (if so, how long)? @ -No Were there social determinants of health that impacted care today? How? (Homelessness, low income, unemployed, alcoholism, drug addiction, transportation, low edu. Level, literacy, decrease access to med. care, senior living, rehab)? @ -No Was there de-escalation of care discussed even if they declined (Discuss DNR or withdrawal of care, Hospice)? DNR status @ -No What co-morbidities impacted this encounter? (DM, HTN, Smoking, COPD, CAD, Cancer, CVA, ARF, Chemo, Hep., AIDS, mental health diagnosis, sleep apnea, morbid obesity)? @ -None Was patient admitted / discharged? Hospital course, mention meds given and route, prescriptions, significant lab abnormalities, going to OR and other pertinent info. @ -Discharge. 58-year-old female presenting to the ER for evaluation of fall. Vitals within acceptable limits. Patient in no signs of acute distress nontoxic-appearing. Patient is freely moving all extremities and is neurovascularly intact. There is no anatomical snuffbox tenderness bilaterally. X-rays completed in the ER negative for acute process. Patient given [place] for pain control. Patient seen ambulating to the bathroom with assistance of her cane without difficulty while waiting for xray results. Upon reevaluation, patient resting comfortably on stretcher no signs of acute distress. Results discussed with patient, all questions answered. Conservative treatment options discussed. Appropriate return and follow-up discussed. Patient discharged in stable condition. Patient verbally expressed understanding and agreement with care plan. Case discussed with ED attending, Dr. Gasca. Undiagnosed new problem with uncertain prognosis? @ -No Drug Therapy requiring intensive monitoring for toxicity (Heparin, Nitro, Insulin, Cardizem)? @ -No Were any procedures done? @ -No Diagnosis/symptom? @ -Fall Acute, or Chronic, or Acute on Chronic? @ -Acute Uncomplicated (without systemic symptoms) or Complicated (systemic symptoms)? @ -Uncomplicated Side effects of treatment? @ -No Exacerbation, Progression, or Severe Exacerbation? @ -No Poses a threat to life or bodily function? How? (Chest pain, [place], [place], pneumonia, PE, COPD, DKA, ARF, appy, cholecystitis, CVA, Diverticulitis, Homicidal, Suicidal, threat to staff... and all critical care pts) @ -No - Radiology Data Radiology results: report reviewed, image reviewed Disposition Clinical Impression: Fall Disposition: HOME SELF-CARE Condition: Stable Instructions (If sedation given, give patient instructions): Fall Prevention (ED) Additional Instructions: Follow-up with PCP. Return to the ER for any new or worsening symptoms. Is patient prescribed a controlled substance at d/c from ED?: No Referrals: Charito Orozco PAC [REFERRING] - 1-2 days Time of Disposition: 17:17
[2024-12-09] MEDS: HYDROcodone/APAP 5-325MG 1 EACH TAB PO STA (16:37)
--- NOTE | 2024-12-09 17:03 | XR ---
EXAMINATION TYPE: XR knee complete LT DATE OF EXAM: 12/09/2024 4:56 PM COMPARISON: None available. CLINICAL INDICATION: Female, 58 years old with history of fall one week ago; PHH, pain TECHNIQUE: XR knee complete LT views submitted.. FINDINGS: No acute fracture or dislocation. Small suprapatellar joint effusion. Enthesophyte along th e superior margin of the patella at the quadriceps insertion site. No focal osseous erosion or aggres sive periosteal reaction. IMPRESSION: No acute osseous abnormality. [facility], , 12/09/2024 5:00 PM
--- NOTE | 2024-12-09 17:03 | XR ---
EXAMINATION TYPE: XR Hip LT and AP Pelvis DATE OF EXAM: 12/09/2024 4:56 PM COMPARISON: None available. CLINICAL INDICATION: Female, 58 years old with history of fall one week ago; PHH, pain TECHNIQUE: XR Hip LT and AP Pelvis; hip was examined in the frontal and lateral projections and a AP pelvis. FINDINGS: No evidence for acute process, joint dislocation or significant soft tissue swelling. IMPRESSION: No acute process. [facility], , 12/09/2024 5:01 PM
--- NOTE | 2024-12-09 17:08 | XR ---
EXAMINATION TYPE: XR hand complete LT DATE OF EXAM: 12/09/2024 4:56 PM COMPARISON: None available. CLINICAL INDICATION: Female, 58 years old with history of fall one week ago; PHH, pain TECHNIQUE: XR hand complete LT Frontal, lateral and oblique views were obtained. FINDINGS: Normal alignment of the visualized joints. No acute osseous pathology is identified. No e vidence of soft tissue swelling. IMPRESSION: No acute osseous pathology. [facility], , 12/09/2024 5:06 PM
--- NOTE | 2024-12-09 17:09 | XR ---
EXAMINATION TYPE: XR wrist complete LT DATE OF EXAM: 12/09/2024 4:56 PM COMPARISON: None available. CLINICAL INDICATION: Female, 58 years old with history of fall one week ago; PHH, pain TECHNIQUE: XR wrist complete LT; examined in the Frontal, navicular, lateral, and oblique. FINDINGS: No acute osseous pathology, joint dislocation, or joint effusion. No evidence of any soft tissue swelling is seen. IMPRESSION: No acute osseous pathology. [facility], , 12/09/2024 5:07 PM
[2024-12-09 17:35] VITALS: BP 141/88; PULSE 99; TEMP 98.4
== END 2024-12-09 17:34 | disposition home or self-care (01) ==
LOC: EC 16:04
DX: G89.29 Other chronic pain (principal); Z04.3 Encounter for examination and observation following other accident; F17.200 Nicotine dependence, unspecified, uncomplicated; Z88.6 Allergy status to analgesic agent; Z88.8 Allergy status to other drugs, medicaments and biological substances; W01.0XXA Fall on same level from slipping, tripping and stumbling without subsequent striking against object, initial encounter
CPT/HCPCS: 73502; 99283

== ENCOUNTER 2024-12-18 21:34 | Inpatient (IN) | payer OTHER ==
--- NOTE | 2024-12-18 21:58 | ED ---
Chest Pain HPI - General Chief Complaint: Chest Pain Stated Complaint: Mental healt, chest pain Time Seen by Provider: 12/18/24 21:36 Source: patient, EMS, RN notes reviewed, old records reviewed Mode of arrival: EMS Limitations: no limitations - History of Present Illness Initial Comments: This is a 58-year-old female to ER with chest pain severe chest pain severe abdominal pain nausea vomiting can stop puking. Patient only abdominal surgery is , patient is brought in by EMS who also note patient had and does need psychiatric evaluation and psychiatric wellness patient did appear to have some delusional and delirious thought process and initial conversation with EMS although she is only complaining of chest pain nausea vomiting and abdominal pain to me here in the ER no thoughts of homicide or suicide MD Complaint: chest pain, other (Abdominal pain nausea vomiting) -: hour(s) Pain Location: substernal Pain Radiation: none Severity: moderate Severity scale (1-10): 6 Consistency: constant Improves With: nothing, eating Other Symptoms: palpitations Treatments Prior to Arrival: none - Related Data Home Medications Medication Instructions Recorded Confirmed oxyCODONE HCL/ACETAMINOPHEN 1 tab PO BID 11/18/16 12/09/24 [Percocet 10-325 mg] Atorvastatin [Lipitor] 80 mg PO HS 07/31/19 12/09/24 Gabapentin 800 mg PO BID 07/31/19 12/09/24 Albuterol Inhaler [Ventolin Hfa 2 puff INHALATION RT-Q4H PRN 11/29/21 12/09/24 Inhaler] lisinopriL 40 mg PO DAILY 11/29/21 12/09/24 Morphine Sulfate ER [Ms Contin] 30 mg PO Q12HR 01/21/22 12/09/24 Aspirin EC [Ecotrin Low Dose] 81 mg PO DAILY 12/09/24 12/09/24 Allergies Allergy/AdvReac Type Severity Reaction Status Date / Time ketorolac tromethamine AdvReac Unknown Verified 12/18/24 21:39 [From Toradol] tincture of benzoin Allergy Rash/Hives Uncoded 12/18/24 21:39 Review of Systems ROS Statement: Those systems with pertinent positive or pertinent negative responses have been documented in the HPI. ROS Other: All systems not noted in ROS Statement are negative. EKG Findings - EKG Comments: EKG Findings:: EKG is sinus 78 VA 166 QRS 92 QTc 410 - EKG Results: EKG: interpreted by [facility] Past Medical History Past Medical History: COPD, Hyperlipidemia, Hypertension, Thyroid Disorder Additional Past Medical History / Comment(s): back pain, degenerative disc disease, herniated disc., carpel tunnel, polyps on vocal cords, nodules on thyroid, chronic neck pain, chronic and recurrent headaches History of Any Multi-Drug Resistant Organisms: None Reported Past Surgical History: Section Additional Past Surgical History / Comment(s): exploritory surgery last december to check ovaries related to increased pain Past Anesthesia/Blood Transfusion Reactions: No Reported Reaction Past Psychological History: Anxiety, Depression Smoking Status: Current every day smoker Past Alcohol Use History: None Reported Past Drug Use History: None Reported - Past Family History Father Family Medical History: Coronary Artery Disease (CAD), Hypertension, Myocardial Infarction ([place]) Additional Family Medical History / Comment(s): Brain aneurysm in more than one family member Mother Family Medical History: Congestive Heart Failure (CHF), Diabetes Mellitus, Hypertension Sister(s) Family Medical History: CVA/TIA, Myocardial Infarction ([place]) Additional Family Medical History / Comment(s): passed from massive brain bleed Brother(s) Family Medical History: Myocardial Infarction ([place]) Daughter(s) Family Medical History: No Reported History Son(s) Family Medical History: No Reported History General Exam Limitations: no limitations General appearance: anxious, in distress Head exam: Present: atraumatic, normocephalic, normal inspection Eye exam: Present: normal appearance, PERRL, EOMI. Absent: scleral icterus, conjunctival injection, periorbital swelling ENT exam: Present: normal exam, mucous membranes moist Neck exam: Present: normal inspection. Absent: tenderness, meningismus, ly mphadenopathy Respiratory exam: Present: normal lung sounds bilaterally. Absent: respiratory distress, wheezes, rales, rhonchi, stridor Cardiovascular Exam: Present: regular rate, normal rhythm, normal heart sounds. Absent: systolic murmur, diastolic murmur, rubs, gallop, clicks GI/Abdominal exam: Present: distended, tenderness, guarding, normal bowel sounds. Absent: rebound, rigid Extremities exam: Present: normal inspection, full ROM, normal capillary refill. Absent: tenderness, pedal edema, joint swelling, calf tenderness Back exam: Present: normal inspection Neurological exam: Present: alert, oriented X3, CN II-XII intact Psychiatric exam: Present: normal affect, normal mood Skin exam: Present: warm, dry, intact, normal color. Absent: rash Course Vital Signs 12/18/24 12/18/24 21:40 22:30 Temperature 97.4 F L Pulse Rate 75 66 Respiratory 22 16 Rate Blood Pressure 150/89 156/82 O2 Sat by Pulse 99 100 Oximetry - Reevaluation(s) Reevaluation #1: 12/18/24 22:52 Medical records reviewed Reevaluation #2: 12/18/24 22:52 Symptoms are improving here in the ER Reevaluation #3: 12/18/24 22:52 Patient informed of results questions answered Reevaluation #4: Was pt. sent in by a medical professional or institution ([facility], CONTRACTS ATTORNEY, urgent care, hospital, or skilled nursing...) When possible be specific @ -no Did you speak to anyone other than the patient for history (EMS, parent, family, police, friend...)? What history was obtained from this source @ -no Did you review nursing and triage notes (agree or disagree)? Why? @ -agree Are old charts reviewed (outside hosp., previous admission, EMS record, old EKG, old radiological studies, urgent care reports/EKG's, skilled nursing records)? Report findings @ -yes Differential Diagnosis (chest pain, altered mental status, abdominal pain women, abdominal pain men, vaginal bleeding, weakness, fever, dyspnea, syncope, headache, dizziness, GI bleed, back pain, seizure, CVA, palpatations, mental health, musculoskeletal)? @ -prior EKG interpreted by me (3pts min.). @ -yes X-rays interpreted by me (1pt min.). @ -yes negative for acute disease CT interpreted by me (1pt min.). @ -no U/S interpreted by me (1pt. min.). @ -no What testing was considered but not performed or refused? (CT, X-rays, U/S, labs)? Why? @ -none What meds were considered but not given or refused? Why? @ -none Did you discuss the management of the patient with other professionals (professionals i.e. , MAYA, CONTRACTS ATTORNEY, lab, RT, psych nurse, social welfare clerk, esters and emulsifiers supervisor, teacher, community service patrol officer, case filler)? Give summary @ -no Was smoking cessation discussed for >3mins.? @ -no Was critical care preformed (if so, how long)? @ -no Were there social determinants of health that impacted care today? How? (Homelessness, low income, unemployed, alcoholism, drug addiction, transportation, low edu. Level, literacy, decrease access to med. care, group home, rehab)? @ -none Was there de-escalation of care discussed even if they declined (Discuss DNR or withdrawal of care, Hospice)? DNR status @ -no What co-morbidities impacted this encounter? (DM, HTN, Smoking, COPD, CAD, Cancer, CVA, ARF, Chemo, Hep., AIDS, mental health diagnosis, sleep apnea, morbid obesity)? @ -none Was patient admitted / discharged? Hospital course, mention meds given and route, prescriptions, significant lab abnormalities, going to OR and other pertinent info. @ - Undiagnosed new problem with uncertain prognosis? @ -no Drug Therapy requiring intensive monitoring for toxicity (Heparin, Nitro, Insulin, Cardizem)? @ -no Were any procedures done? @ -no Diagnosis/symptom? @ - Acute, or Chronic, or Acute on Chronic? @ -Acute Uncomplicated (without systemic symptoms) or Complicated (systemic symptoms)? @ -Complicated Side effects of treatment? @ -no Exacerbation, Progression, or Severe Exacerbation? @ -exacerbation Poses a threat to life or bodily function? How? (Chest pain, [place], [place], pneumonia, PE, COPD, DKA, ARF, appy, cholecystitis, CVA, Diverticulitis, Homicidal, Suicidal, threat to staff... and all critical care pts) @ -yes Reevaluation #5: Differential Abdominal Pain Women: Appendicitis, Cholecystitis, diverticulosis, ischemic bowel, pancreatitis, hepatitis, UTI, gastroenteritis, AAA, incarcerated hernia, bowel obstruction, constipation, inflammatory bowel, hepatitis, peptic ulcer disease, splenic infarction, perforated viscus, vulvitis, ovarian torsion, PID, kidney stone, placenta abruption, this is not meant to be an all-inclusive list Differential Chest Pain: Stable Angina, Unstable Angina, STEMI, NSTEMI Aortic Dissection, Pneumothorax, Musculoskeletal, Esophageal Spasm GERD, Cholecystitis, Pancreatitis, Zoster, this is not meant to be an all-inclusive list. - Consultations Consultation #1: Spoke with EM who agrees to admit this patient Chest Pain MDM - MDM 58 female history of presents for abdominal pain nausea vomiting chest pain found to have small bowel obstruction here in the ER we will admit for surgical evaluation Disposition Clinical Impression: Chest pain, Atypical chest pain, Abdominal pain, Nausea & vomiting, SBO (small bowel obstruction) Referrals: Luciano Puckett MD [Primary Care Provider] - 1-2 days
[2024-12-18 22:08] LABS: Basophils # (A) 0.04 10*3/uL (0.00-0.10); Basophils % (A) 0.7 %; Eosinophils # (A) 0.23 10*3/uL (0.04-0.35); Eosinophils % (A) 3.9 %; HCT 36.3 % (37.2-46.3); HGB 12.8 g/dL (12.0-15.0); Lymphocytes % (A) 49.5 %; MCH 30.9 pg (27.0-32.0); MCHC 35.3 g/dL (32.0-37.0); MCV 87.7 fL (80.0-97.0); Mean Platelet Volume 10.3 fL (9.5-12.2); Monocytes # (A) 0.63 10*3/uL (0.20-1.00); Monocytes % (A) 10.8 %; Neutrophils # (A) 2.05 10*3/uL (1.80-7.70); Neutrophils % (A) 34.9 %; Platelet Count 212 10*3/uL (140-440); RBC 4.14 10*6/uL (4.10-5.20); RDW 12.1 % (11.5-14.5); WBC 5.86 10*3/uL (4.50-10.00)
[2024-12-18] MEDS: diphenhydrAMINE 50 MG/ML 1 ML VIAL IVP STA (22:11)
[2024-12-18] MEDS: ONDANSETRON 4 MG/2 ML VIAL IVP STA (22:11)
[2024-12-18] MEDS: SODIUM CHLORIDE 0.9% 1,000 ML IV STA (22:11)
[2024-12-18] MEDS: HYDROmorphone 2 MG/ML 1 ML SYRINGE IVP STA ×2 (22:11→23:10)
[2024-12-18 22:22] LABS: ALT 25 U/L (4-34); AST 26 U/L (14-36); African American GFR (CKD) >90 (>60 ml/min/1.73 sqM); Albumin 4.3 g/dL (3.5-5.0); Alkaline Phosphatase 100 U/L (38-126); Anion Gap 12 mmol/L; Blood Urea Nitrogen 13 mg/dL (7-17); Calcium 9.6 mg/dL (8.4-10.2); Carbon Dioxide 25 mmol/L (22-30); Chloride 103 mmol/L (98-107); Glucose 117 mg/dL (74-99); Lipase 74 U/L (23-300); Magnesium 1.7 mg/dL (1.6-2.3); Non-African American GFR(CKD) >90 (>60 ml/min/1.73 sqM); Potassium 3.7 mmol/L (3.5-5.1); Sodium 140 mmol/L (137-145); Total Bilirubin 0.3 mg/dL (0.2-1.3); Total Protein 6.9 g/dL (6.3-8.2)
[2024-12-18 22:27] LABS: INR 0.9 (<1.2); Partial Thromboplastin Time 24.4 sec (22.0-30.0); Prothrombin Time 10.6 sec (10.0-12.5)
[2024-12-18 22:30] LABS: NT-Pro-B-Type Natriuretic Pept 79 pg/mL
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
[2024-12-18] MEDS ORDERED: NALOXONE 0.4 MG/ML 1 ML VIAL IV PRN (22:48)
[2024-12-18] MEDS: SODIUM CHLORIDE 0.9% 1,000 ML IV SCH (22:55)
[2024-12-18] MEDS: LORazepam 2 MG/ML INJ IV STA (23:10)
[2024-12-18] MEDS: AMPICILLIN-SULBACTAM 3 GM in SODIUM CHLORIDE 0.9% 100 ML IVPB STA (23:19)
--- NOTE | 2024-12-19 00:31 | XR ---
EXAMINATION TYPE: XR chest 1V portable DATE OF EXAM: 12/19/2024 CLINICAL INDICATION: Female, 58 years old with history of NG tube confirmation, progress study. TECHNIQUE: Single AP portable upright view of the chest is obtained. COMPARISON: CT from one day earlier FINDINGS: There is new nasogastric tube projecting below the diaphragm coiled in stomach. Low lung v olumes are present. No new focal airspace opacity, pleural effusion, or pneumothorax seen. Cardiac si lhouette size is stable and within normal limits. Osseous structures are intact. IMPRESSION: There is a new nasogastric tube satisfactory in position. [facility], , 12/19/2024 12:29 AM
[2024-12-19 03:51] LABS: Basophils # (A) 0.05 10*3/uL (0.00-0.10); Basophils % (A) 0.6 %; Eosinophils # (A) 0.14 10*3/uL (0.04-0.35); Eosinophils % (A) 1.8 %; HCT 35.8 % (37.2-46.3); HGB 12.2 g/dL (12.0-15.0); Lymphocytes # (A) 2.31 10*3/uL (0.90-5.00); Lymphocytes % (A) 29.6 %; MCH 30.8 pg (27.0-32.0); MCHC 34.1 g/dL (32.0-37.0); MCV 90.4 fL (80.0-97.0); Mean Platelet Volume 10.2 fL (9.5-12.2); Monocytes # (A) 0.55 10*3/uL (0.20-1.00); Monocytes % (A) 7.1 %; Neutrophils # (A) 4.71 10*3/uL (1.80-7.70); Neutrophils % (A) 60.4 %; Platelet Count 200 10*3/uL (140-440); RBC 3.96 10*6/uL (4.10-5.20); RDW 12.4 % (11.5-14.5)
[2024-12-19 04:05] LABS: ALT 23 U/L (4-34); AST 24 U/L (14-36); African American GFR (CKD) >90 (>60 ml/min/1.73 sqM); Albumin 3.9 g/dL (3.5-5.0); Alkaline Phosphatase 88 U/L (38-126); Anion Gap 7 mmol/L; Blood Urea Nitrogen 12 mg/dL (7-17); Calcium 9.2 mg/dL (8.4-10.2); Carbon Dioxide 27 mmol/L (22-30); Chloride 104 mmol/L (98-107); Glucose 122 mg/dL (74-99); Magnesium 1.8 mg/dL (1.6-2.3); Non-African American GFR(CKD) >90 (>60 ml/min/1.73 sqM); Phosphorus 4.1 mg/dL (2.5-4.5); Potassium 4.2 mmol/L (3.5-5.1); Sodium 138 mmol/L (137-145); Total Bilirubin 0.4 mg/dL (0.2-1.3); Total Protein 6.5 g/dL (6.3-8.2)
[2024-12-19] MEDS: MORPHINE SULFATE 4 MG/ML SYRINGE IV PRN (04:05)
[2024-12-19] MEDS: PANTOPRAZOLE 40 MG/10 ML VIAL IV SCH (08:01)
[2024-12-19] MEDS: AMPICILLIN-SULBACTAM 3 GM in SODIUM CHLORIDE 0.9% 100 ML IVPB SCH (08:02)
--- NOTE | 2024-12-19 10:34 | P.GSCN ---
History of Present Illness Consult date: 12/19/24 Reason for Consult: Ileus versus small bowel obstruction History of present illness: Is a 58-year-old female who had complaints of abdominal pain and nausea yesterday. 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 Was found evidence of a ileus or possible distal small bowel obstruction. Patient states her nausea is improved today. However she still has not had any significant bowel function. Past Medical History Past Medical History: COPD, Hyperlipidemia, Hypertension, Thyroid Disorder Additional Past Medical History / Comment(s): back pain, degenerative disc disease, herniated disc., carpel tunnel, polyps on vocal cords, nodules on thyroid, chronic neck pain, chronic and recurrent headaches History of Any Multi-Drug Resistant Organisms: None Reported Past Surgical History: Section Additional Past Surgical History / Comment(s): exploritory surgery last december to check ovaries related to increased pain Past Anesthesia/Blood Transfusion Reactions: No Reported Reaction Past Psychological History: Anxiety, Depression Smoking Status: Current every day smoker Past Alcohol Use History: None Reported Past Drug Use History: None Reported Additional Drug Use History / Comment(s): Pt denies drug use but UDS was positive for THC. - Past Family History Father Family Medical History: Coronary Artery Disease (CAD), Hypertension, Myocardial Infarction ([place]) Additional Family Medical History / Comment(s): Brain aneurysm in more than one family member Mother Family Medical History: Congestive Heart Failure (CHF), Diabetes Mellitus, Hypertension Sister(s) Family Medical History: CVA/TIA, Myocardial Infarction ([place]) Additional Family Medical History / Comment(s): passed from massive brain bleed Brother(s) Family Medical History: Myocardial Infarction ([place]) Daughter(s) Family Medical History: No Reported History Son(s) Family Medical History: No Reported History Medications and Allergies Home Medications Medication Instructions Recorded Confirmed Type oxyCODONE HCL/ACETAMINOPHEN 1 tab PO BID 11/18/16 12/09/24 History [Percocet 10-325 mg] Atorvastatin [Lipitor] 80 mg PO HS 07/31/19 12/09/24 History Gabapentin 800 mg PO BID 07/31/19 12/09/24 History Albuterol Inhaler [Ventolin Hfa 2 puff INHALATION RT-Q4H PRN 11/29/21 12/09/24 History Inhaler] lisinopriL 40 mg PO DAILY 11/29/21 12/09/24 History Morphine Sulfate ER [Ms Contin] 30 mg PO Q12HR 01/21/22 12/09/24 History Aspirin EC [Ecotrin Low Dose] 81 mg PO DAILY 12/09/24 12/09/24 History Allergies Allergy/AdvReac Type Severity Reaction Status Date / Time ketorolac tromethamine AdvReac Unknown Verified 12/18/24 21:39 [From Toradol] tincture of benzoin Allergy Rash/Hives Uncoded 12/18/24 21:39 Surgical - Exam Vital Signs Temp Pulse Resp BP Pulse Ox 97.4 F L 75 22 150/89 99 12/18/24 21:40 12/18/24 21:40 12/18/24 21:40 12/18/24 21:40 12/18/24 21:40 - General well developed, well nourished - Eyes PERRL - ENT normal pinna - Neck no masses - Respiratory normal expansion - Cardiovascular Rhythm: regular - Abdomen Minimal tenderness in lower quadrants. Abdomen: soft Results - Labs 12/19/24 03:17 12/19/24 03:22 Abnormal Lab Results - Last 24 Hours (Table) 12/18/24 12/18/24 12/19/24 Range/Units 22:02 22:02 03:17 RBC 3.96 L (4.10-5.20) 10*6/uL Hct 36.3 L 35.8 L (37.2-46.3) % Glucose 117 H (74-99) mg/dL 12/19/24 Range/Units 03:22 RBC (4.10-5.20) 10*6/uL Hct (37.2-46.3) % Glucose 122 H (74-99) mg/dL Diabetes panel 12/18/24 12/19/24 Range/Units 22:02 03:22 Sodium 140 138 (137-145) mmol/L Potassium 3.7 4.2 (3.5-5.1) mmol/L Chloride 103 104 (98-107) mmol/L Carbon Dioxide 25 27 (22-30) mmol/L BUN 13 12 (7-17) mg/dL Creatinine 0.67 0.62 (0.52-1.04) mg/dL Glucose 117 H 122 H (74-99) mg/dL Calcium 9.6 9.2 (8.4-10.2) mg/dL AST 26 24 (14-36) U/L ALT 25 23 (4-34) U/L Alkaline Phosphatase 100 88 (38-126) U/L Total Protein 6.9 6.5 (6.3-8.2) g/dL Albumin 4.3 3.9 (3.5-5.0) g/dL Calcium panel 12/18/24 12/19/24 Range/Units 22:02 03:22 Calcium 9.6 9.2 (8.4-10.2) mg/dL Phosphorus 4.1 (2.5-4.5) mg/dL Albumin 4.3 3.9 (3.5-5.0) g/dL Pituitary panel 12/18/24 12/19/24 Range/Units 22:02 03:22 Sodium 140 138 (137-145) mmol/L Potassium 3.7 4.2 (3.5-5.1) mmol/L Chloride 103 104 (98-107) mmol/L Carbon Dioxide 25 27 (22-30) mmol/L BUN 13 12 (7-17) mg/dL Creatinine 0.67 0.62 (0.52-1.04) mg/dL Glucose 117 H 122 H (74-99) mg/dL Calcium 9.6 9.2 (8.4-10.2) mg/dL Adrenal panel 12/18/24 12/19/24 Range/Units 22:02 03:22 Sodium 140 138 (137-145) mmol/L Potassium 3.7 4.2 (3.5-5.1) mmol/L Chloride 103 104 (98-107) mmol/L Carbon Dioxide 25 27 (22-30) mmol/L BUN 13 12 (7-17) mg/dL Creatinine 0.67 0.62 (0.52-1.04) mg/dL Glucose 117 H 122 H (74-99) mg/dL Calcium 9.6 9.2 (8.4-10.2) mg/dL Total Bilirubin 0.3 0.4 (0.2-1.3) mg/dL AST 26 24 (14-36) U/L ALT 25 23 (4-34) U/L Alkaline Phosphatase 100 88 (38-126) U/L Total Protein 6.9 6.5 (6.3-8.2) g/dL Albumin 4.3 3.9 (3.5-5.0) g/dL Assessment and Plan Assessment: Ileus versus early partial small bowel obstruction. Patient will be observed. If she has had no significant bowel function by tomorrow she will have a repeat CAT scan with oral contrast.
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
[2024-12-19] MEDS: NICOTINE 7MG/24HR PATCH TRANSDERM SCH (15:39)
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
[2024-12-19] MEDS: HEPARIN SODIUM,PORCINE 5,000 UNIT/ML 1 ML VIAL SQ SCH (20:06)
[2024-12-20 08:36] LABS: Basophils # (A) 0.05 X 10*3/uL (0.00-0.10); Basophils % (A) 0.6 %; Eosinophils # (A) 0.14 X 10*3/uL (0.04-0.35); Eosinophils % (A) 1.7 %; HCT 34.6 % (37.2-46.3); HGB 11.5 g/dL (12.0-15.0); Lymphocytes # (A) 2.95 X 10*3/uL (0.90-5.00); Lymphocytes % (A) 36.7 %; MCH 29.9 pg (27.0-32.0); MCHC 33.2 g/dL (32.0-37.0); MCV 89.9 FL (80.0-97.0); Mean Platelet Volume 10.9 FL (9.5-12.2); Monocytes # (A) 0.56 X 10*3/uL (0.20-1.00); NRBC Per 100 WBC 0 X 10*3/uL (0.00-0.01); Neutrophils # (A) 4.31 X 10*3/uL (1.80-7.70); Neutrophils % (A) 53.8 %; Platelet Count 195 X 10*3/uL (140-440); RBC 3.85 X 10*6/uL (4.10-5.20); RDW 12.2 % (11.5-14.5); WBC 8.03 X 10*3/uL (4.50-10.00)
[2024-12-20 08:40] LABS: Calcium 8.6 mg/dL (8.7-10.3); Carbon Dioxide 25.4 mmol/L (21.6-31.8); Chloride 108 mmol/L (96-109); Glucose 98 mg/dL (70-110); Potassium 3.7 mmol/L (3.5-5.5); Sodium 141 mmol/L (135-145)
[2024-12-20] MEDS: IOPAMIDOL CONTRAST (ORAL USE) VIAL PO PRN (13:29)
--- NOTE | 2024-12-20 14:41 | P.PN ---
Subjective Progress Note Date: 12/20/24 SURGICAL PROGRESS NOTE CHIEF COMPLAINT: Ileus versus small bowel obstruction HISTORY OF PRESENT ILLNESS: Patient continues to complain of abdominal pain. She does report the pain slightly better than admission. But still rating the pain about a 6 or 8 out of 10. She is having flatus. No bowel movements. Denies any nausea or vomiting. Afebrile. WBC 8.03 PHYSICAL EXAM: VITAL SIGNS: Reviewed. GENERAL: Well-developed in no acute distress. ABDOMEN: Soft. Nondistended. Epigastric tenderness to palpation NEUROLOGIC: Alert and oriented. Cranial nerves II through XII grossly intact. ASSESSMENT: 1. Abdominal pain. Ileus versus small bowel obstruction 2. History of PLAN: - No significant bowel function since a repeat CT scan abdomen pelvis with oral contrast has been ordered - Keep patient n.p.o. Physician Gro[employer] Runner note has been reviewed by physician. Signing provider agrees with the documented findings, assessment, and plan of care. Objective - Vital Signs Vital signs: Vital Signs Temp 98.2 F 12/20/24 13:54 Pulse 62 12/20/24 13:54 Resp 18 12/20/24 13:54 BP 151/92 12/20/24 13:54 Pulse Ox 100 12/20/24 13:54 FiO2 Intake & Output 12/19/24 12/20/24 12/20/24 18:59 06:59 18:59 Other: Voiding Method Toilet Toilet # Voids 1 3 # Bowel Movements 1 - Labs CBC & Chem 7: 12/20/24 03:15 12/20/24 03:15 Labs: Abnormal Lab Results - Last 24 Hours (Table) 12/20/24 12/20/24 Range/Units 03:15 03:15 RBC 3.85 L (4.10-5.20) X 10*6/uL Hgb 11.5 L (12.0-15.0) g/dL Hct 34.6 L (37.2-46.3) % BUN 7.0 L (9.0-27.0) mg/dL BUN/Creatinine Ratio 10.00 L (12.00-20.00) Ratio Calcium 8.6 L (8.7-10.3) mg/dL
--- NOTE | 2024-12-20 15:29 | CT ---
EXAMINATION TYPE: CT abdomen pelvis wo con CT DLP: 651.9 mGycm, Automated exposure control for dose reduction was used. DATE OF EXAM: 12/20/2024 3:15 PM COMPARISON: CT abdomen pelvis 12/18/2024, CT chest abdomen pelvis 10/15/2021 CLINICAL INDICATION:Female, 58 years old with history of abdominal pain, ileus vs SBO; generalized ab dominal pain TECHNIQUE: Standard CT of the abdomen and pelvis following the administration of oral contrast. Cor onal and sagittal reformats were performed. FINDINGS: LOWER CHEST: Minimal left lower lobe linear scarring and/or atelectasis. ABDOMEN LIVER: Unremarkable noncontrast appearance. GALLBLADDER AND BILE DUCTS: Mildly hyperdense material identified within the gallbladder. No surround ing inflammatory changes. PANCREAS: Unremarkable noncontrast appearance. SPLEEN: Unremarkable noncontrast appearance. ADRENAL GLANDS: Unremarkable noncontrast appearance.. KIDNEYS AND URETERS: No evidence of hydronephrosis or renal calculus. Right ureter ureteral calculus identified. PELVIS BLADDER: Incompletely distended but grossly unremarkable. REPRODUCTIVE: Unremarkable noncontrast appearance. ABDOMEN & PELVIS STOMACH AND BOWEL: There is circumferential wall thickening of the gastric body with some surrounding fat stranding. Circumferential wall thickening of the adjacent jejunum. Enteric contrast reaches the rectum. No dilated bowel. The appendix is within normal limits. No evidence of bowel obstruction. PERITONEUM: No evidence of pneumoperitoneum or free fluid. 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 VASCULATURE: Mild to moderate atherosclerotic calcifications are present throughout the abdominal aor ta and its branches. No evidence of aortic aneurysm. MUSCULOSKELETAL: No acute osseous abnormalities. Mild disc degeneration changes are present throughou t the thoracolumbar spine. LYMPH NODES: No gross evidence for lymphadenopathy. SOFT TISSUE/ABDOMINAL WALL: Minimal right anterior abdominal wall subcutaneous tissue stranding hardy es which may related to medication injection. IMPRESSION: 1. Findings suggestive of acute gastroenteritis. Enteric contrast reaches the rectum. No evidence for bowel obstruction. 2. Cholelithiasis versus vicarious excretion of contrast from earlier CT exam. [facility], , 12/20/2024 3:27 PM
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
[2024-12-21] MEDS: ONDANSETRON 4 MG/2 ML VIAL IVP PRN (02:18)
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
[2024-12-21] MEDS ORDERED: ALBUTEROL NEBULIZED 2.5 MG/3 ML INHALATION PRN (11:22)
--- NOTE | 2024-12-21 12:35 | P.PN ---
Subjective Progress Note Date: 12/21/24 SURGICAL PROGRESS NOTE CHIEF COMPLAINT: Ileus versus small bowel obstruction HISTORY OF PRESENT ILLNESS: Patient does report pain in the upper abdomen. She does report pain is less than what she was admitted with. She has had bowel movements. She does complain of some reflux. CT scan abdomen pelvis reports acute gastroenteritis. Contrast reaches the rectum. No evidence of bowel obstruction. Cholelithiasis versus vicarious excretion of contrast from earlier CT. She did tolerate the full liquids. She reports that her bowel movement with hard stool. Afebrile. WBC 8.03 PHYSICAL EXAM: VITAL SIGNS: Reviewed. GENERAL: Well-developed in no acute distress. ABDOMEN: Soft. Nondistended. Epigastric tenderness to palpation NEUROLOGIC: Alert and oriented. Cranial nerves II through XII grossly intact. ASSESSMENT: 1. Abdominal pain likely due to a gastroenteritis. No evidence of bowel o bstruction on CAT scan 2. History of PLAN: -Continue full liquid diet -Add Colace for constipation -Continue antibiotics -Encourage patient to ambulate Physician Almond Paste Mixer note has been reviewed by physician. Signing provider agrees with the documented findings, assessment, and plan of care. Objective - Vital Signs Vital signs: Vital Signs Temp 97.6 F 12/21/24 06:59 Pulse 73 12/21/24 06:59 Resp 18 12/21/24 06:59 BP 119/71 12/21/24 06:59 Pulse Ox 96 12/21/24 06:59 FiO2 Intake & Output 12/20/24 12/21/24 12/21/24 18:59 06:59 18:59 Intake Total 200 Balance 200 Intake: Oral 200 Other: Voiding Method Toilet # Voids 1 1 # Bowel Movements 1 - Labs CBC & Chem 7: 12/20/24 03:15 12/20/24 03:15
[2024-12-21] MEDS: DOCUSATE 100 MG CAP PO SCH (15:07)
[2024-12-21] MEDS ORDERED: ACETAMINOPHEN IV (For NPO) 1,000 MG in EMPTY BAG 1 BAG IVPB PRN (19:42)
[2024-12-21] MEDS: ATORVASTATIN 80 MG TAB PO SCH (21:01)
[2024-12-21] MEDS: GABAPENTIN 400 MG CAP PO SCH (21:02)
[2024-12-21] MEDS: oxyCODONE-APAP 10-325MG 1 EACH TAB PO SCH (21:02)
[2024-12-22 07:46] VITALS: BP 159/72; PULSE 57; RESP 16; TEMP 97.6
[2024-12-22] MEDS: lisinopriL 20 MG TAB PO SCH (08:28)
[2024-12-22] MEDS: ASPIRIN 81 MG PO SCH (08:28)
--- NOTE | 2024-12-22 10:48 | P.PN ---
Subjective Progress Note Date: 12/22/24 SURGICAL PROGRESS NOTE CHIEF COMPLAINT: Ileus versus small bowel obstruction HISTORY OF PRESENT ILLNESS: Patient reports improvement in abdominal pain. She tolerated the full liquid diet. Patient does report pain in the upper abdomen. Afebrile. No new labs. WBC has been normal Patient seen and examined with Dr. Gonzalez PHYSICAL EXAM: VITAL SIGNS: Reviewed. GENERAL: Well-developed in no acute distress. ABDOMEN: Soft. Nondistended. NEUROLOGIC: Alert and oriented. Cranial nerves II through XII grossly intact. ASSESSMENT: 1. Abdominal pain likely due to a gastroenteritis. No evidence of bowel obstruction on CAT scan 2. History of PLAN: -Advance diet to regular -Patient can be discharged from surgical standpoint - No antibiotics needed from surgical standpoint Physician Family Consumer Scientist note has been reviewed by physician. Signing provider agrees with the documented findings, assessment, and plan of care. Objective - Vital Signs Vital signs: Vital Signs Temp 97.6 F 12/22/24 07:04 Pulse 57 L 12/22/24 07:04 Resp 16 12/22/24 07:04 BP 159/72 12/22/24 07:04 Pulse Ox 99 12/22/24 07:04 FiO2 Intake & Output 12/21/24 12/22/24 12/22/24 18:59 06:59 18:59 Intake Total 200 Balance 200 Intake: Oral 200 Other: Voiding Method Toilet # Voids 2 1 # Bowel Movements 1 - Labs CBC & Chem 7: 12/20/24 03:15 12/20/24 03:15
--- NOTE | 2024-12-22 23:01 | P.DS ---
Providers Date of admission: 12/18/24 22:48 Attending physician: Janeth Lawrence Consults: 12/18/24 22:48 Consult Physician Routine Consulting Provider: Ney Gonzalez Consult Reason/Comments: sbo Do you want consulting provider notified?: Yes 12/18/24 22:54 Consult Physician Routine Consulting Provider: Psychiatry - [facility] Psychiatry Consult Reason/Comments: psychosis Do you want consulting provider notified?: Yes Primary care physician: Luciano Puckett Hospital Course: Diagnoses: Acute ileus versus partial small bowel obstruction Possible paranoid thinking, currently stable, evaluated by psychiatrist and recommended to continue with the current management COPD with no acute exacerbation Hypertension Hyperlipidemia Hypothyroidism Chronic back pains because of degenerative disc disease and herniated disc. Chronic neck pain. Recurrent headache Anxiety and depression\ Hospital course: Patient is a pleasant 58 years old female with past medical history of multiple medical problems as below. when I asked the patient was the reason she came to the hospital she told me because of pain at her stomach when going to between her shoulder blades that started yesterday and it was very bad severe enough to make her shout. Patient was admitted to the hospital with abdominal pain.CT of the abdomen and pelvis showing ileus versus partial small bowel obstruction Patient eval by surgery team. Patient was treated with bowel rest IV fluid pain medication. Patient show interval improvement and has bowel movements, tolerates diet well. Abdominal pain significantly resolved. Denies any other n ew complaint. Patient eager to go home. Patient was cleared for discharge by surgery team. Problems and management plan were discussed with the patient and he verbalized understanding and acceptance Patient was found stable and can be discharged home in guarded prognosis however he needs follow-up as an outpatient. Patient was instructed to follow up with PCP Dr. Chan within one week and patient agrees Patient was instructed to follow-up with general surgeon Dr. Gonzalez in 1 to 2 weeks and she agrees Physical exam Gen: patient is a AAOx3, no distress CVS: S1-S2, RRR, no murmur Lungs: B/L CTA, no wheezing Abdomen: soft, no distention, no tenderness, positive bowel sounds Extremity: no leg edema or induration Time spent more than 35 minutes Plan - Discharge Summary Discharge Rx Participant: No New Discharge Prescriptions: New Docusate [Colace] 100 mg PO BID 7 Days #14 cap Acetaminophen Tab [Tylenol] 325 mg PO Q6H PRN #30 tab PRN Reason: Pain Continue Gabapentin 800 mg PO BID Atorvastatin [Lipitor] 80 mg PO HS Albuterol Inhaler [Ventolin Hfa Inhaler] 2 puff INHALATION RT-Q4H PRN PRN Reason: Shortness Of Breath Aspirin EC [Ecotrin Low Dose] 81 mg PO DAILY lisinopriL 40 mg PO DAILY Discontinued oxyCODONE HCL/ACETAMINOPHEN [Percocet 10-325 mg] 1 tab PO BID Morphine Sulfate ER [Ms Contin] 30 mg PO Q12HR Discharge Medication List Atorvastatin [Lipitor] 80 mg PO HS 07/31/19 [History] Gabapentin 800 mg PO BID 07/31/19 [History] Albuterol Inhaler [Ventolin Hfa Inhaler] 2 puff INHALATION RT-Q4H PRN 11/29/21 [History] lisinopriL 40 mg PO DAILY 11/29/21 [History] Aspirin EC [Ecotrin Low Dose] 81 mg PO DAILY 12/09/24 [History] Acetaminophen Tab [Tylenol] 325 mg PO Q6H PRN #30 tab 12/22/24 [Rx] Docusate [Colace] 100 mg PO BID 7 Days #14 cap 12/22/24 [Rx] Follow up Appointment(s)/Referral(s): Luciano Puckett MD [Primary Care Provider] - 1-2 days (Office Closed, please call office to make your appt) Ney Gonzalez MD [STAFF PHYSICIAN] - 01/04/25 4:00 pm Activity/Diet/Wound Care/Special Instructions: Resume your previous diet Activity is restricted till you see your doctor .. We recommend use Tylenol and may be short course of NSAIDs like ibuprofen 400 mg for 2 to 3 days, which may be extended under supervision of your doctor .. we recommend to avoid narcotics For pain management as they may contribute to bowel obstruction and lazy bowel function Discharge/Stand Alone Forms: Who Do I Call?, Help In The Home, Personal Adjunct Instructor Of Women'S Studies Discharge Disposition: HOME SELF-CARE
== END 2024-12-22 16:05 | disposition home or self-care (01) | DRG 247 ==
LOC: EC 21:34 → SUPCPDRO 21:34 → 4SSUR 22:48
PROVIDERS: ADMIT Hospitalist; ATTEND Hospitalist
DX: K56.7 Ileus, unspecified (principal); E03.9 Hypothyroidism, unspecified; J44.9 Chronic obstructive pulmonary disease, unspecified; I10 Essential (primary) hypertension; F32.A Depression, unspecified; F17.210 Nicotine dependence, cigarettes, uncomplicated; E78.5 Hyperlipidemia, unspecified; F41.9 Anxiety disorder, unspecified; M54.2 Cervicalgia; F60.0 Paranoid personality disorder; K21.9 Gastro-esophageal reflux disease without esophagitis; G44.89 Other headache syndrome; K52.9 Noninfective gastroenteritis and colitis, unspecified; Z79.82 Long term (current) use of aspirin; Z79.899 Other long term (current) drug therapy; Z79.891 Long term (current) use of opiate analgesic
CPT/HCPCS: 36415; 71045; 71275; 74176; 74177; 80048; 80053; 83690; 83735; 83880; 84100; 84484; 85025; 85379; 85610; 85730; 93005; 96361; 96374; 96375; 99285

== ENCOUNTER 2024-12-29 05:39 | Emergency (ER) | payer OTHER ==
[2024-12-29] MEDS: PANTOPRAZOLE 40 MG/10 ML VIAL IVP STA (06:10)
[2024-12-29] MEDS: ONDANSETRON 4 MG/2 ML VIAL IVP STA (06:12)
[2024-12-29] MEDS: MORPHINE SULFATE 4 MG/ML SYRINGE IVP STA (06:13)
[2024-12-29] MEDS: SODIUM CHLORIDE 0.9% 1,000 ML IV ONE (06:14)
--- NOTE | 2024-12-29 06:14 | ED ---
Abdominal Pain HPI - General Chief Complaint: Abdominal Pain Stated Complaint: abd pain Time Seen by Provider: 12/29/24 06:11 Source: patient, RN notes reviewed, old records reviewed Mode of arrival: ambulatory Limitations: no limitations - History of Present Illness Initial Comments: Presented the ER for evaluation of abdominal pain. Patient states she was recently admitted and discharged on 12 22 24 for a bowel obstruction. She states the pain has continued and never improved. She describes as a sharp intermittent epigastric abdominal pain with mild radiation to her shoulder blades. Patient states pain is not controlled with prescribed MS Contin 30 mg prescribed for chronic back pain. She does admit to nausea and dry heaves but denies any vomiting. Patient reports normal bowel movements and flatulence. No known fevers or urinary complaints. Patient denies any history of ulcerative colitis, Crohn's disease or diverticulitis. History of section no other abdominal surgeries. No other complaint - Related Data Home Medications Medication Instructions Recorded Confirmed Atorvastatin [Lipitor] 80 mg PO HS 07/31/19 12/19/24 Gabapentin 800 mg PO BID 07/31/19 12/19/24 Albuterol Inhaler [Ventolin Hfa 2 puff INHALATION RT-Q4H PRN 11/29/21 12/19/24 Inhaler] lisinopriL 40 mg PO DAILY 11/29/21 12/19/24 Aspirin EC [Ecotrin Low Dose] 81 mg PO DAILY 12/09/24 12/19/24 Previous Rx's Medication Instructions Recorded Acetaminophen Tab [Tylenol] 325 mg PO Q6H PRN #30 tab 12/22/24 Docusate [Colace] 100 mg PO BID 7 Days #14 cap 12/22/24 Allergies Allergy/AdvReac Type Severity Reaction Status Date / Time ketorolac tromethamine AdvReac Unknown Verified 12/29/24 05:45 [From Toradol] tincture of benzoin Allergy Rash/Hives Uncoded 12/29/24 05:45 Review of Systems ROS Statement: Those systems with pertinent positive or pertinent negative responses have been documented in the HPI. ROS Other: All systems not noted in ROS Statement are negative. Past Medical History Past Medical History: COPD, Hyperlipidemia, Hypertension, Thyroid Disorder Additional Past Medical History / Comment(s): back pain, degenerative disc disease, herniated disc., carpel tunnel, polyps on vocal cords, nodules on thyroid, chronic neck pain, chronic and recurrent headaches History of Any Multi-Drug Resistant Organisms: None Reported Past Surgical History: Section Additional Past Surgical History / Comment(s): exploritory surgery last december to check ovaries related to increased pain Past Anesthesia/Blood Transfusion Reactions: No Reported Reaction Past Psychological History: Anxiety, Depression Smoking Status: Current every day smoker Past Alcohol Use History: None Reported Past Drug Use History: None Reported - Past Family History Father Family Medical History: Coronary Artery Disease (CAD), Hypertension, Myocardial Infarction (NE) Additional Family Medical History / Comment(s): Brain aneurysm in more than one family member Mother Family Medical History: Congestive Heart Failure (CHF), Diabetes Mellitus, Hypertension Sister(s) Family Medical History: CVA/TIA, Myocardial Infarction (NE) Additional Family Medical History / Comment(s): passed from massive brain bleed Brother(s) Family Medical History: Myocardial Infarction ([place]) Daughter(s) Family Medical History: No Reported History Son(s) Family Medical History: No Reported History General Exam Limitations: no limitations General appearance: alert, in no apparent distress Respiratory exam: Present: normal lung sounds bilaterally. Absent: respiratory distress, wheezes, rales, rhonchi, stridor Cardiovascular Exam: Present: regular rate, normal rhythm, normal heart sounds. Absent: systolic murmur, diastolic murmur, rubs, gallop, clicks GI/Abdominal exam: Present: soft, tenderness (epigastric), normal bowel sounds Neurological exam: Present: alert, oriented X3, CN II-XII intact Skin exam: Present: warm, dry, intact, normal color. Absent: rash Course Vital Signs 12/29/24 12/29/24 12/29/24 05:41 07:50 08:54 Temperature 97.8 F 97.9 F Pulse Rate 93 74 71 Respiratory 18 15 17 Rate Blood Pressure 117/79 131/72 124/78 O2 Sat by Pulse 99 98 100 Oximetry Medical Decision Making - Medical Decision Making Was pt. sent in by a medical professional or institution (, PA, INDUSTRIAL MAINTENANCE REPAIRER, urgent care, hospital, or snf...) When possible be specific @ -No Did you speak to anyone other than the patient for history (EMS, parent, family, police, friend...)? What history was obtained from this source @ -No Did you review nursing and triage notes (agree or disagree)? Why? @ -I reviewed and agree with nursing and triage notes Were old charts reviewed (outside hosp., previous admission, EMS record, old EKG, old radiological studies, urgent care reports/EKG's, snf records)? Report findings @ -ER visit and admission from 12-18-2024. Patient admitted for small bowel obstruction. Patient underwent bowel rest, IV fluids and pain control and was ultimately discharged on 12/22/24. Differential Diagnosis (chest pain, altered mental status, abdominal pain women, abdominal pain men, vaginal bleeding, weakness, fever, dyspnea, syncope, headache, dizziness, GI bleed, back pain, seizure, CVA, palpatations, mental health, musculoskeletal)? @ -Differential Abdominal Pain Men:Appendicitis, cholecystitis, diverticulosis, ischemic bowel, pancreatitis, hepatitis, UTI, gastroenteritis, AAA, incarcerated hernia, bowel obstruction, constipation, inflammatory bowel, hepatitis, peptic ulcer disease, splenic infarction, perforated viscus, testicular torsion, this is not meant to be an all-inclusive list EKG interpreted by me (3pts min.). @ -None done X-rays interpreted by me (1pt min.). @ -None done CT interpreted by me (1pt min.). @ -CT abdomen pelvis showed a normal appendix no small or large bowel dilation. Mild to moderate peripheral calcified plaque of aorta. No significant acute finding. U/S interpreted by me (1pt. min.). @ -None done What testing was considered but not performed or refused? (CT, X-rays, U/S, labs)? Why? @ -None What meds were considered but not given or refused? Why? @ -None Did you discuss the management of the patient with other professionals (professionals i.e. , PA, INDUSTRIAL MAINTENANCE REPAIRER, lab, RT, psych nurse, social media assistant, hospice team lead, teacher, special assets officer, trimming caser)? Give summary @ -No Was smoking cessation discussed for >3mins.? @ -No Was critical care preformed (if so, how long)? @ -No Were there social determinants of health that impacted care today? How? (Homelessness, low income, unemployed, alcoholism, drug addiction, transportation, low edu. Level, literacy, decrease access to med. care, residential, rehab)? @ -No Was there de-escalation of care discussed even if they declined (Discuss DNR or withdrawal of care, Hospice)? DNR status @ -No What co-morbidities impacted this encounter? (DM, HTN, Smoking, COPD, CAD, Cancer, CVA, ARF, Chemo, Hep., AIDS, mental health diagnosis, sleep apnea, morbid obesity)? @ -History of small bowel obstruction Was patient admitted / discharged? Hospital course, mention meds given and route, prescriptions, significant lab abnormalities, going to OR and other pertinent info. @ - Discharged. 59-year-old female presented the ER for evaluation of abdominal pain. Vital stable. Workup in the ER remarkable for leukocytosis of 11.9 with left shift. Lactic 1.7. Lipase 96. Urinalysis with no evidence of infection. Given patient's history of prior small bowel obstruction, CT abdomen pelvis obtained and negative for acute process. Patient received symptomatic treatment in ER, with improvement. Upon reevaluation, patient resting comfortably on stretcher no signs of acute distress. Results discussed with patient, all questions answered. I advised close follow-up with with general surgery and PCP. Patient reports follow-up with general surgery in the next week. Return parameters discussed. Patient discharged in stable condition. Patient verbally expressed understanding agreement care plan. Case discussed with ED attending, Dr. Gonzalez. Undiagnosed new problem with uncertain prognosis? @ -No Drug Therapy requiring intensive monitoring for toxicity (Heparin, Nitro, Insul in, Cardizem)? @ -No Were any procedures done? @ -No Diagnosis/symptom? @ -Abdominal pain Acute, or Chronic, or Acute on Chronic? @ -Acute Uncomplicated (without systemic symptoms) or Complicated (systemic symptoms)? @ -Uncomplicated Side effects of treatment? @ -No Exacerbation, Progression, or Severe Exacerbation? @ -No Poses a threat to life or bodily function? How? (Chest pain, [place], NE, pneumonia, PE, COPD, DKA, ARF, appy, cholecystitis, CVA, Diverticulitis, Homicidal, Suicidal, threat to staff... and all critical care pts) @ -Low - Lab Data Result diagrams: 12/29/24 06:04 12/29/24 06:04 Lab Results 12/29/24 12/29/24 12/29/24 Range/Units 06:04 06:04 06:04 WBC 11.92 H (4.50-10.00) 10*3/uL RBC 4.14 (4.10-5.20) 10*6/uL Hgb 12.9 (12.0-15.0) g/dL Hct 36.8 L (37.2-46.3) % MCV 88.9 (80.0-97.0) fL MCH 31.2 (27.0-32.0) pg MCHC 35.1 (32.0-37.0) g/dL Plt Count 266 (140-440) 10*3/uL MPV 9.4 L (9.5-12.2) fL Immature Gran % (Auto) 0.3 % Neutrophils % 72.5 % Lymphocytes % 19.6 % Monocytes % 6.4 % Eosinophils % 0.7 % Basophils % 0.5 % Immature Gran # 0.04 (0.00-0.04) 10*3/uL Neutrophils # 8.64 H (1.80-7.70) 10*3/uL Lymphocytes # 2.34 (0.90-5.00) 10*3/uL Monocytes # 0.76 (0.20-1.00) 10*3/uL Eosinophils # 0.08 (0.04-0.35) 10*3/uL Basophils # 0.06 (0.00-0.10) 10*3/uL PT 10.7 (10.0-12.5) sec INR 1.0 (<1.2) APTT 23.9 (22.0-30.0) sec Sodium 135 L (137-145) mmol/L Potassium 3.6 (3.5-5.1) mmol/L Chloride 102 (98-107) mmol/L Carbon Dioxide 25 (22-30) mmol/L Anion Gap 8 mmol/L BUN 13 (7-17) mg/dL Creatinine 1.13 H (0.52-1.04) mg/dL Est GFR (CKD-EPI)AfAm 63 (>60 ml/min/1.73 sqM) Est GFR (CKD-EPI)NonAf 54 (>60 ml/min/1.73 sqM) Glucose 121 H (74-99) mg/dL Plasma Lactic Acid Syl[place] (0.7-2.0) mmol/L Calcium 9.6 (8.4-10.2) mg/dL Total Bilirubin 0.6 (0.2-1.3) mg/dL AST 20 (14-36) U/L ALT 25 (4-34) U/L Alkaline Phosphatase 77 (38-126) U/L Total Protein 7.4 (6.3-8.2) g/dL Albumin 4.6 (3.5-5.0) g/dL Amylase 35 (30-110) U/L Lipase 96 (23-300) U/L Urine Color Urine Appearance (Clear) Urine pH (5.0-8.0) Ur Specific [place] (1.001-1.035) Urine Protein (Negative) Urine Glucose (UA) (Negative) Urine Ketones (Negative) Urine Blood (Negative) Urine Nitrite (Negative) Urine Bilirubin (Negative) Urine Urobilinogen (<2.0) mg/dL Ur Leukocyte Esterase (Negative) 12/29/24 12/29/24 Range/Units 06:04 07:33 WBC (4.50-10.00) 10*3/uL RBC (4.10-5.20) 10*6/uL Hgb (12.0-15.0) g/dL Hct (37.2-46.3) % MCV (80.0-97.0) fL MCH (27.0-32.0) pg MCHC (32.0-37.0) g/dL Plt Count (140-440) 10*3/uL MPV (9.5-12.2) fL Immature Gran % (Auto) % Neutrophils % % Lymphocytes % % Monocytes % % Eosinophils % % Basophils % % Immature Gran # (0.00-0.04) 10*3/uL Neutrophils # (1.80-7.70) 10*3/uL Lymphocytes # (0.90-5.00) 10*3/uL Monocytes # (0.20-1.00) 10*3/uL Eosinophils # (0.04-0.35) 10*3/uL Basophils # (0.00-0.10) 10*3/uL PT (10.0-12.5) sec INR (<1.2) APTT (22.0-30.0) sec Sodium (137-145) mmol/L Potassium (3.5-5.1) mmol/L Chloride (98-107) mmol/L Carbon Dioxide (22-30) mmol/L Anion Gap mmol/L BUN (7-17) mg/dL Creatinine (0.52-1.04) mg/dL Est GFR (CKD-EPI)AfAm (>60 ml/min/1.73 sqM) Est GFR (CKD-EPI)NonAf (>60 ml/min/1.73 sqM) Glucose (74-99) mg/dL Plasma Lactic Acid [place] 1.7 (0.7-2.0) mmol/L Calcium (8.4-10.2) mg/dL Total Bilirubin (0.2-1.3) mg/dL AST (14-36) U/L ALT (4-34) U/L Alkaline Phosphatase (38-126) U/L Total Protein (6.3-8.2) g/dL Albumin (3.5-5.0) g/dL Amylase (30-110) U/L Lipase (23-300) U/L Urine Color Colorless Urine Appearance Clear (Clear) Urine pH 5.5 (5.0-8.0) Ur Specific [place] 1.011 (1.001-1.035) Urine Protein Negative (Negative) Urine Glucose (UA) Negative (Negative) Urine Ketones Negative (Negative) Urine Blood Negative (Negative) Urine Nitrite Negative (Negative) Urine Bilirubin Negative (Negative) Urine Urobilinogen <2.0 (<2.0) mg/dL Ur Leukocyte Esterase Negative (Negative) Disposition Clinical Impression: Abdominal pain Disposition: HOME SELF-CARE Condition: Stable Instructions (If sedation given, give patient instructions): Abdominal Pain (ED) Additional Instructions: Follow-up general surgeon as scheduled. I also recommend close follow-up with PCP. Return to the ER for any new or worsening concerns. Is patient prescribed a controlled substance at d/c from ED?: No Referrals: Luciano Puckett MD [Primary Care Provider] - 1-2 days Ney Gonzalez MD [STAFF PHYSICIAN] - 1-2 days Time of Disposition: 08:45
[2024-12-29 06:17] LABS: Basophils # (A) 0.06 10*3/uL (0.00-0.10); Basophils % (A) 0.5 %; Eosinophils # (A) 0.08 10*3/uL (0.04-0.35); Eosinophils % (A) 0.7 %; HCT 36.8 % (37.2-46.3); HGB 12.9 g/dL (12.0-15.0); Lymphocytes # (A) 2.34 10*3/uL (0.90-5.00); Lymphocytes % (A) 19.6 %; MCH 31.2 pg (27.0-32.0); MCHC 35.1 g/dL (32.0-37.0); MCV 88.9 fL (80.0-97.0); Mean Platelet Volume 9.4 fL (9.5-12.2); Monocytes # (A) 0.76 10*3/uL (0.20-1.00); Monocytes % (A) 6.4 %; Neutrophils # (A) 8.64 10*3/uL (1.80-7.70); Neutrophils % (A) 72.5 %; Platelet Count 266 10*3/uL (140-440); RBC 4.14 10*6/uL (4.10-5.20); RDW 12.9 % (11.5-14.5); WBC 11.92 10*3/uL (4.50-10.00)
[2024-12-29 06:29] LABS: ALT 25 U/L (4-34); AST 20 U/L (14-36); African American GFR (CKD) 63 (>60 ml/min/1.73 sqM); Albumin 4.6 g/dL (3.5-5.0); Alkaline Phosphatase 77 U/L (38-126); Amylase 35 U/L (30-110); Anion Gap 8 mmol/L; Blood Urea Nitrogen 13 mg/dL (7-17); Calcium 9.6 mg/dL (8.4-10.2); Carbon Dioxide 25 mmol/L (22-30); Chloride 102 mmol/L (98-107); Glucose 121 mg/dL (74-99); Lipase 96 U/L (23-300); Non-African American GFR(CKD) 54 (>60 ml/min/1.73 sqM); Potassium 3.6 mmol/L (3.5-5.1); Sodium 135 mmol/L (137-145); Total Bilirubin 0.6 mg/dL (0.2-1.3); Total Protein 7.4 g/dL (6.3-8.2)
[2024-12-29 06:37] LABS: Partial Thromboplastin Time 23.9 sec (22.0-30.0); Prothrombin Time 10.7 sec (10.0-12.5)
--- NOTE | 2024-12-29 07:19 | CT ---
EXAMINATION TYPE: CT abdomen pelvis w con DATE OF EXAM: 12/29/2024 COMPARISON: Prior CT December 20, 2024 CLINICAL INDICATION: Female, 59 years old with history of abdominal pain, Abdominal pain, recent stay for obstruction, TECHNIQUE: CT scan of the abdomen and pelvis is performed with IV Contrast, patient injected with 80 mL of Isovu e 300., (none if empty) Oral contrast used: without Oral Contrast (none if empty) CT DLP: 1048.7 mGycm, Automated exposure control for dose reduction was used. FINDINGS: LUNG BASES: No significant abnormality is appreciated. LIVER/GB: No significant abnormality is appreciated. PANCREAS: No significant abnormality is seen. SPLEEN: No significant abnormality is seen. ADRENALS: No significant abnormality is seen. KIDNEYS: No significant abnormality is seen. BOWEL: Normal-appearing appendix from the cecum. No abnormal small or large bowel dilatation. A few s cattered colonic diverticula. UTERUS/[place]A: No gross abnormality seen. LYMPH NODES: No greater than 1cm abdominal or pelvic lymph nodes are appreciated. OSSEOUS STRUCTURES: Scoliotic curvature with multilevel spurring in the thoracolumbar spine is redemo nstrated. OTHER: Mild to moderate peripheral calcified plaque of the aorta extends into branch vessels. Vertica l oriented scarring midline of the anterior wall of the lower abdomen and pelvis is redemonstrated IMPRESSION: No significant new/acute finding is seen to account for patient's clinical symptoms of a bdominal pain. [facility], , 12/29/2024 7:17 AM
[2024-12-29 08:35] LABS: Appearance,Urine Clear (Clear); Bilirubin,Urine Negative (Negative); Blood,Urine Negative (Negative); Color,Urine Colorless; Glucose,Urine (UA) Negative (Negative); Ketones,Urine Negative (Negative); Leukocyte Esterase,Urine Negative (Negative); Nitrite,Urine Negative (Negative); PH, Urine 5.5 (5.0-8.0); Protein,Urine Negative (Negative); Specific Gravity,Urine 1.011 (1.001-1.035); Urobilinogen,Urine <2.0 mg/dL (<2.0)
[2024-12-29 08:57] VITALS: BP 124/78; PULSE 71; RESP 17; TEMP 97.9
== END 2024-12-29 08:58 | disposition home or self-care (01) ==
LOC: EC 05:39
DX: R10.13 Epigastric pain (principal); F17.200 Nicotine dependence, unspecified, uncomplicated; Z88.6 Allergy status to analgesic agent; Z88.8 Allergy status to other drugs, medicaments and biological substances
CPT/HCPCS: 36415; 80053; 82150; 83605; 83690; 85025; 85610; 85730; 81003; 74177; 99285; 96374; 96375 ×2; 96361 ×3; J2270; J2405; Q9967; J2470